=== PATIENT | male | born 1960 | race Caucasian/White ===

== ENCOUNTER 2022-05-30 11:08 | Outpatient (REF) | payer MEDICAID, SELFPAY ==
--- NOTE | ~2022-05-30 | XR_ITS ---
EXAMINATION: XR KNEES, STANDING AP BILATERAL XR KNEE, RIGHT CLINICAL INFORMATION: Knee pain COMPARISON: None TECHNIQUE: Bilateral standing AP view of the knees is performed. Additional lateral and axial patella views of the right knee are obtained. FINDINGS: Right: Normal bony mineralization. No fracture, dislocation, destructive process, or arthropathy. No erosive change or chondrocalcinosis. No effusion. Hoffa's fat pad appears normal. No lateralization or tilting patella. Left: Normal bony mineralization. No definite joint narrowing. No erosive change or definite chondrocalcinosis. XR/XR knee standing BI IMPRESSION: Unremarkable knees.
--- NOTE | ~2022-05-30 | XR_ITS ---
EXAMINATION: XR KNEES, STANDING AP BILATERAL XR KNEE, RIGHT CLINICAL INFORMATION: Knee pain COMPARISON: None TECHNIQUE: Bilateral standing AP view of the knees is performed. Additional lateral and axial patella views of the right knee are obtained. FINDINGS: Right: Normal bony mineralization. No fracture, dislocation, destructive process, or arthropathy. No erosive change or chondrocalcinosis. No effusion. Hoffa's fat pad appears normal. No lateralization or tilting patella. Left: Normal bony mineralization. No definite joint narrowing. No erosive change or definite chondrocalcinosis. XR/XR knee RT 2V IMPRESSION: Unremarkable knees.
== END 2022-05-30 11:09 | disposition home or self-care (01) ==
LOC: HO.HOSX 11:08
PROVIDERS: Visit Provider Physician Assistant
DX: M23.91 Unspecified internal derangement of right knee (principal)
CPT/HCPCS: 73560; 73565; 99202

== ENCOUNTER 2022-06-16 07:24 | Outpatient (REF) | payer MEDICAID, SELFPAY ==
--- NOTE | ~2022-06-16 | MR_ITS ---
EXAMINATION: MR KNEE WITHOUT CONTRAST, RIGHT CLINICAL INFORMATION: Right knee pain. Internal derangement. COMPARISON: Right knee radiographs dated 05/30/2022. TECHNIQUE: MRI of the knee without contrast was performed using routine sequences on a high-field scanner. FINDINGS: MENISCI: MEDIAL MENISCUS: Intact LATERAL MENISCUS: Intact LIGAMENTS: CRUCIATE: Intact COLLATERAL: Intact EXTENSOR MECHANISM: Minimal distal quadriceps tendinosis. Intact patellar tendon. Normal patellofemoral alignment. ARTICULAR CARTILAGE/BONE: PATELLOFEMORAL COMPARTMENT: Focal articular cartilage fissuring at the inferior aspect of the patellar median ridge with minimal underlying subchondral cystic change. Medial patellar facet articular cartilage signal heterogeneity. Tiny marginal osteophytes. MEDIAL COMPARTMENT: Intact articular cartilage. LATERAL COMPARTMENT: Intact articular cartilage. JOINT FLUID AND BURSAE: Trace joint effusion. MR/MR knee RT wo con IMPRESSION: 1. No acute meniscal or ligamentous injury. 2. Minimal distal quadriceps tendinosis. 3. Minimal patellofemoral arthrosis. Trace joint effusion.
== END 2022-06-16 07:25 | disposition home or self-care (01) ==
LOC: HO.MRI 07:24
PROVIDERS: PCP Family Medicine; Visit Provider Physician Assistant
DX: M23.91 Unspecified internal derangement of right knee (principal)
CPT/HCPCS: 73721

== ENCOUNTER → 2022-08-04 10:59 | Outpatient (BNVA) | payer MEDICAID, SELFPAY | PROVIDERS: Visit Provider Physician Assistant | DX: M23.91 Unspecified internal derangement of right knee (principal) | CPT/HCPCS: 20610; 99212; J1040 ==

== ENCOUNTER 2022-08-29 09:29 | Outpatient (REF) | payer MEDICAID, SELFPAY | END 2022-08-29 09:30 | disposition home or self-care (01) | LOC: HO.HOSX 09:29 | PROVIDERS: Visit Provider Physician Assistant | DX: Z13.89 Encounter for screening for other disorder (principal) ==

== ENCOUNTER 2022-09-05 11:12 | Outpatient (REF) | payer OTHER, SELFPAY ==
--- NOTE | ~2022-09-05 | XR_ITS ---
EXAMINATION: XR SHOULDER, LEFT CLINICAL INFORMATION: Pain. COMPARISON: None available. TECHNIQUE: Three views of the left shoulder. FINDINGS: There is mild acromioclavicular osteoarthritis. Glenohumeral joint is well preserved. No fracture. Alignment is anatomic. Soft tissues are normal with no abnormal calcifications. XR/XR shoulder LT min 2V IMPRESSION: No acute fractures or malalignment. Mild acromioclavicular osteoarthritis.
== END 2022-09-05 11:13 | disposition home or self-care (01) ==
LOC: HO.HOSX 11:12
PROVIDERS: Visit Provider Physician Assistant
DX: M75.102 Unspecified rotator cuff tear or rupture of left shoulder, not specified as traumatic (principal)
CPT/HCPCS: 73030; 99212

== ENCOUNTER → 2022-11-13 09:22 | Outpatient (BNVA) | payer OTHER, SELFPAY | PROVIDERS: PCP Family Medicine; Visit Provider Physician Assistant | DX: M23.91 Unspecified internal derangement of right knee (principal); M75.102 Unspecified rotator cuff tear or rupture of left shoulder, not specified as traumatic | CPT/HCPCS: 20610; J1040 ==

== ENCOUNTER 2023-02-06 08:33 | Outpatient (AMB) | payer OTHER, SELFPAY ==
[2023-02-06 08:38] VITALS: BMI 27.1
--- NOTE | 2023-02-06 08:38 | MHC.OFFVIS ---
Intake Vital Signs 02/06/23 08:38 Height 6 ft Weight 200 lb BMI 27.1 Intake Visit Reasons: OV - Right knee Euflexxa Gel Injection #1 Intake Note: Vinay is a 62 year old male who presents today for his right knee euflexxa gel injection #1. Allergies ciprofloxacin [From Cipro] Allergy (Severe, Verified 02/06/23 08:39) Swelling HPI OV - Right knee Euflexxa Gel Injection #1 HPI Details 62-year-old male who presents in the office today for a follow up of right knee pain. He presents for his 1st Euflexxa injection in a series of 3 in the right knee. He would also like a cortisone injection in the left shoulder. His last cortisone injection was on 11/13/2022 in the left shoulder. [facility] Medical History (Updated 11/13/22 @ 09:33 by Soila Christiansen) History of high blood pressure Social History Alcohol intake: never Patient Tobacco Use Status: Never used Tobacco Current occupational status: disabled Review of Systems Const All systems reviewed & are unremarkable except as noted in HPI and below Physical Exam Vital Signs: BMI result Body Mass Index 27.1 Const General: cooperative, healthy appearing and no acute distress Resp Effort & Inspection: normal respiratory effort and able to speak in complete sentences Cardio Rate: regular rate Peripheral pulses: Peripheral pulses 2+ throughout GI Palpation (GI): Soft to palpation Skin Lesions: no lesions Rashes: no rashes Extrem Other: Right knee: Normal to inspection. No ecchymosis, erythema, or joint effusion. No tenderness to palpation to the medial or lateral joint lines. Full knee extension and flexion. Negative Jennifer's. Negative anterior draw. NVI. Left shoulder: Normal to inspection. No ecchymosis, erythema, or edema. Full shoulder ROM in all planes. Negative cross-body reach. 4/5 strength with empty can. Negative drop arm. NVI. Office Procedures Joint Injection/Drain Joint Injection/Drain Primary Site: left shoulder Secondary Site: right knee (Euflexxa #1) Prep: site was prepped using aseptic technique, ethochloride spray was applied and injection warnings given Injected: 80 mg of, DepoMedrol, with 8 mL of (2% plain lido ) and in the subcromial space Approach Used: anterolateral Procedure: The patient tolerated the procedure well, but had some pain with the injection and there was some relief with the local anesthesia Coding 75721 - Large joint Procedure code (CPT) selection complete Results Reviewed Results Reviewed: 02/06/23 08:40 Hyaluronate Sodium [Euflexxa] 20 mg INTRAARTIC .[facility] ONE 02/06/23 08:48 Lidocaine HCl 2 % MPF [Xylocaine 2 % MPF] 5 ml .ROUTE .[facility] methylPREDNISolone acetate [DEPO-MedroL] 80 mg .ROUTE .[facility] Assessment & Plan Assessment & Plan (1) Internal derangement of right knee: Code(s): M23.91 - Unspecified internal derangement of right knee (2) Painful arc syndrome of left shoulder: Code(s): M75.102 - Unspecified rotator cuff tear or rupture of left shoulder, not specified as traumatic Plan Mr Cornejo is a 62-year-old male who presents in the office today for a follow up of right knee pain. He presents for his 1st Euflexxa injection in a series of 3 in the right knee. He would also like a cortisone injection in the left shoulder. His last cortisone injection was on 11/13/2022 in the left shoulder. The patient was offered a cortisone injection in the left shoulder with 80 mg of DepoMedrol. The patient was explained the risk, benefits, and alternatives to receiving this injection. After receiving consent for the injection, the patient had the procedure done while in office today. The patient tolerated the procedure well with no complications. The patient was injection with his 1st Euflexxa injection in the right knee. The patient was explained the risk, benefits, and alternatives to receiving this injection. After receiving consent for the injection, the patient had the procedure done while in office today. The patient tolerated the procedure well with no complications. Follow up will be in 1 week for his 2nd injection in the right knee, or sooner if needed. Patient Instructions: Scribed for Malorie Stevenson PA-C by Laura Ewing medical or surgical instrument maker, on 02/06/2023 at 8:43 am, EST. Coding Level of Care Code Procedure Only Diagnoses Internal derangement of right knee M23.91 Painful arc syndrome of left shoulder M75.102 CPT Codes Coding - Large joint: 77587 - Large joint ([id number])
== END 2023-02-06 09:00 | disposition home or self-care (01) ==
PROVIDERS: PCP Family Medicine; Visit Provider Physician Assistant
DX: M23.91 Unspecified internal derangement of right knee (principal); M75.102 Unspecified rotator cuff tear or rupture of left shoulder, not specified as traumatic
CPT/HCPCS: 20610

== ENCOUNTER → 2023-02-06 08:33 | Outpatient (BNVA) | payer OTHER, SELFPAY | PROVIDERS: PCP Family Medicine; Visit Provider Physician Assistant | DX: M23.91 Unspecified internal derangement of right knee (principal); M75.102 Unspecified rotator cuff tear or rupture of left shoulder, not specified as traumatic | CPT/HCPCS: 20610; J1040; J7323 ==

== ENCOUNTER 2023-02-13 08:25 | Outpatient (AMB) | payer OTHER, SELFPAY ==
--- NOTE | 2023-02-13 08:28 | A.OFFVIS_ITS ---
Intake Vital Signs 02/13/23 08:29 Height 6 ft Weight 200 lb BMI 27.1 BP 147/99 H Blood Pressure Location Lt brachial Position Sitting Intake Visit Reasons: OV - Right knee Euflexxa Gel Injection #2 Intake Note: Vinay is a 62 year old male who presents today for his right knee euflexxa gel injection #2. Allergies ciprofloxacin [From Cipro] Allergy (Severe, Verified 02/13/23 08:36) Swelling HPI OV - Right knee Euflexxa Gel Injection #2 HPI Details 62-year-old male who presents in the off ice today for a follow up of right knee pain. He presents for his 2nd Euflexxa injection in a series of 3 in the right knee. He reports the left shoulder injection has not started working yet. [facility] Medical History (Updated 11/13/22 @ 09:33 by Soila Christiansen) History of high blood pressure Social History Alcohol intake: never Patient Tobacco Use Status: Never used Tobacco Current occupational status: disabled Review of Systems Const All systems reviewed & are unremarkable except as noted in HPI and below Physical Exam Vital Signs: Last Vital Signs BP 147/99 H 02/13/23 08:29 BMI result Body Mass Index 27.1 Const General: cooperative, healthy appearing and no acute distress Resp Effort & Inspection: normal respiratory effort and able to speak in complete sentences Cardio Rate: regular rate Peripheral pulses: Peripheral pulses 2+ throughout GI Palpation (GI): Soft to palpation Skin Lesions: no lesions Rashes: no rashes Extrem Other: Right knee: Normal to inspection. No ecchymosis, erythema, or joint effusion. No tenderness to palpation to the medial or lateral joint lines. Full knee extension and flexion. Negative Jennifer's. Negative anterior draw. NVI. Office Procedures Joint Injection/Drain Joint Injection/Drain Primary Site: right knee Injected: in the joint (Euflexxa #2) Approach Used: anterolateral Procedure: The patient tolerated the procedure well, but had some pain with the injection and there was some relief with the local anesthesia Coding 97726 - Large joint Procedure code (CPT) selection complete Results Reviewed Results Reviewed: 02/13/23 08:31 Hyaluronate Sodium [Euflexxa] 20 mg INTRAARTIC .[facility] Assessment & Plan Assessment & Plan (1) Internal derangement of right knee: Code(s): M23.91 - Unspecified internal derangement of right knee Plan Mr. Cornejo is a 62-year-old male who presents in the office today for a follow up of right knee pain. He presents for his 2nd Euflexxa injection in a series of 3 in the right knee. He reports the left shoulder injection has not started working yet. The patient was injection with his 2nd Euflexxa injection in the right knee. The patient was explained the risk, benefits, and alternatives to receiving this injection. After receiving consent for the injection, the patient had the procedure done while in office today. The patient tolerated the procedure well with no complications. I educated the patient that the cortisone injection can take up to a week to feel any relief. We will re-evaluate his left shoulder at the next appointment. Follow up will be in 1 week for his 3rd Euflexxa injection in the right knee, or sooner if needed. Patient Instructions: Scribed for Malorie Stevenson PA-C by Laura Ewing medical insurance claims processor, on 02/13/2023 at 8:28 am, EST. Coding Level of Care Code Procedure Only Diagnoses Internal derangement of right knee M23.91 CPT Codes Coding - 63362 Large joint: 64107 - Large joint ([id number])
[2023-02-13 08:29] VITALS: BP 147/99; BMI 27.1
== END 2023-02-13 08:41 | disposition home or self-care (01) ==
PROVIDERS: PCP Family Medicine; Visit Provider Physician Assistant
DX: M23.91 Unspecified internal derangement of right knee (principal)
CPT/HCPCS: 20610

== ENCOUNTER → 2023-02-13 08:25 | Outpatient (BNVA) | payer OTHER, SELFPAY | PROVIDERS: PCP Family Medicine; Visit Provider Physician Assistant | DX: M23.91 Unspecified internal derangement of right knee (principal) | CPT/HCPCS: 20610; J7323 ==

== ENCOUNTER 2023-02-20 08:34 | Outpatient (AMB) | payer OTHER, SELFPAY ==
--- NOTE | 2023-02-20 08:40 | MHC.OFFVIS ---
Intake Intake Visit Reasons: OV - Right knee Euflexxa Gel Injection #3 Intake Note: Vinay is a 62 year old male who presents today for his right knee euflexxa gel injection #3. Allergies ciprofloxacin [From Cipro] Allergy (Severe, Verified 02/20/23 08:40) Swelling HPI OV - Right knee Euflexxa Gel Injection #3 HPI Details 62-year-old male who presents in the office today for a follow up of right knee pain. He presents for his 3rd Euflexxa injection in a series of 3 in the right knee. [facility] Medical History (Updated 11/13/22 @ 09:33 by Soila Christiansen) History of high blood pressure Social History Alcohol intake: never Patient Tobacco Use Status: Never used Tobacco Current occupational status: disabled Review of Systems Const All systems reviewed & are unremarkable except as noted in HPI and below Physical Exam Const General: cooperative, healthy appearing and no acute distress Resp Effort & Inspection: normal respiratory effort and able to speak in complete sentences Cardio Rate: regular rate Peripheral pulses: Peripheral pulses 2+ throughout GI Palpation (GI): Soft to palpation Skin Lesions: no lesions Rashes: no rashes Extrem Other: Right knee: Normal to inspection. No ecchymosis, erythema, or joint effusion. No tenderness to palpation to the medial or lateral joint lines. Full knee extension and flexion. Negative Jennifer's. Negative anterior draw. NVI. Office Procedures Joint Injection/Drain Joint Injection/Drain Primary Site: right knee Prep: site was prepped using aseptic technique, ethochloride spray was applied and injection warnings given Injected: in the joint (Euflexxa #3) Approach Used: anterolateral Procedure: The patient tolerated the procedure well, but had some pain with the injection and there was some relief with the local anesthesia Coding 22396 - Large joint Procedure code (CPT) selection complete Results Reviewed Results Reviewed: 02/20/23 08:30 Hyaluronate Sodium [Euflexxa] 20 mg INTRAARTIC .[facility] Assessment & Plan Assessment & Plan (1) Internal derangement of right knee: Code(s): M23.91 - Unspecified internal derangement of right knee Plan Mr. Cornejo is a 62-year-old male who presents in the office today for a follow up of right knee pain. He presents for his 3rd Euflexxa injection in a series of 3 in the right knee. The patient was injection with his 3rd Euflexxa injection in the right knee. The patient was explained the risk, benefits, and alternatives to receiving this injection. After receiving consent for the injection, the patient had the procedure done while in office today. The patient tolerated the procedure well with no complications. Follow up will be PRN, or sooner if needed. Patient Instructions: Scribed for Malorie Stevenson PA-C by Laura Ewing center medical and lab director, on 02/20/2023 at 8:37 am, EST. Coding Level of Care Code Procedure Only Diagnoses Internal derangement of right knee M23.91 CPT Codes Coding - 01866 Large joint: 06217 - Large joint ([id number])
== END 2023-02-20 08:45 | disposition home or self-care (01) ==
PROVIDERS: PCP Family Medicine; Visit Provider Physician Assistant
DX: M23.91 Unspecified internal derangement of right knee (principal)
CPT/HCPCS: 20610

== ENCOUNTER → 2023-02-20 08:34 | Outpatient (BNVA) | payer OTHER, SELFPAY | PROVIDERS: PCP Family Medicine; Visit Provider Physician Assistant | DX: M23.91 Unspecified internal derangement of right knee (principal) | CPT/HCPCS: 20610; J7323 ==

== ENCOUNTER 2023-05-25 09:26 | Outpatient (AMB) | payer OTHER, SELFPAY ==
[2023-05-25 09:34] VITALS: BMI 27.1
--- NOTE | 2023-05-25 09:34 | MHC.OFFVIS ---
Intake Vital Signs 05/25/23 09:34 Height 6 ft Weight 200 lb BMI 27.1 Intake Visit Reasons: OV- Left Shoulder pain Intake Note: Vinay is a 62 year old left hand dominant male who presents today for a evaluation for his left shoulder pain. He states that his pain is getting a little worse and would like to injection his shoulder. He states that his knee has been bothering him since his last gel injection on 02/20/23 and wanted to know if he can get an injection. Allergies ciprofloxacin [From Cipro] Allergy (Severe, Verified 05/25/23 09:34) Swelling HPI OV- Left Shoulder pain HPI Details 62-year-old left hand dominant male who presents in the office today for a follow up of left shoulder pain. I last saw the patient in the office for left shoulder pain on 09/05/2022 where he reported 6 months of intermittent pain. He was offered physical therapy but declined and due to his decreased pain at the time a cortisone injection was deferred. While in the office today the patient reports his pain is a little worse and he would like to have a cortisone injection in the left shoulder. The patient also reports pain in the right knee. He states it has been a while since he had his last gel injection, which was on 02/20/2023. He would like a cortisone injection in the right knee today as well. [facility] Medical History (Updated 11/13/22 @ 09:33 by Soila Christiansen) History of high blood pressure Social History Alcohol intake: never Patient Tobacco Use Status: Never used Tobacco Current occupational status: disabled Review of Systems Const All systems reviewed & are unremarkable except as noted in HPI and below Physical Exam Vital Signs: BMI result Body Mass Index 27.1 Const General: cooperative, healthy appearing and no acute distress Resp Effort & Inspection: normal respiratory effort and able to speak in complete sentences Cardio Rate: regular rate Peripheral pulses: Peripheral pulses 2+ throughout GI Palpation (GI): Soft to palpation Skin Lesions: no lesions Rashes: no rashes Extrem Other: Left shoulder: Normal to inspection. No ecchymosis, erythema, or edema. Full shoulder ROM in all planes. Negative cross-body reach. 4/5 strength with empty can. Negative drop arm. NVI. Right knee: Normal to inspection. No ecchymosis, erythema, or joint effusion. No tenderness to palpation to the medial or lateral joint lines. Full knee extension and flexion. Negative Jennifer's. Negative anterior draw. NVI. Office Procedures Joint Injection/Drain Joint Injection/Drain Primary Site: left shoulder Injected: 80 mg of, DepoMedrol, with 8 mL of (2% plain lido ) and in the subcromial space Approach Used: posterolateral Procedure: The patient tolerated the procedure well and there was some relief with the local anesthesia Coding 03776 - Large joint Procedure code (CPT) selection complete Joint Injection/Drain Joint Injection/Drain Primary Site: right knee Prep: site was prepped using aseptic technique, ethochloride spray was applied and injection warnings given Injected: 80 mg of, with 8 mL of (2% plain lido) and in the joint Approach Used: anterolateral Procedure: The patient tolerated the procedure well, but had some pain with the injection and there was some relief with the local anesthesia Coding 97541 - Large joint Procedure code (CPT) selection complete Assessment & Plan Assessment & Plan (1) Painful arc syndrome of left shoulder: Code(s): M75.102 - Unspecified rotator cuff tear or rupture of left shoulder, not specified as traumatic (2) Internal derangement of right knee: Code(s): M23.91 - Unspecified internal derangement of right knee Plan Mr. Cornejo is a 62-year-old left hand dominant male who presents in the office today for a follow up of left shoulder pain. I last saw the patient in the office for left shoulder pain on 09/05/2022 where he reported 6 months of intermittent pain. He was offered physical therapy but declined and due to his decreased pain at the time a cortisone injection was deferred. While in the office today the patient reports his pain is a little worse and he would like to have a cortisone injection in the left shoulder. The patient also reports pain in the right knee. He states it has been a while since he had his last gel injection, which was on 02/20/2023. He would like a cortisone injection in the right knee today as well. The patient was offered a cortisone injection in the left shoulder and right knee with 80 mg of DepoMedrol. The patient was explained the risk, benefits, and alternatives to receiving this injection. After receiving consent for the injection, the patient had the procedure done while in office today. The patient tolerated the procedure well with no complications. Follow up will be PRN, or sooner if needed. Patient Instructions: Scribed for Malorie Stevenson PA-C by Laura Ewing medical laboratory specialist, on 05/25/2023 at 9:29 am, EST. Coding Level of Care Code Est Pt Level 4 (62495) Diagnoses Painful arc syndrome of left shoulder M75.102 Internal derangement of right knee M23.91 CPT Codes Coding - 04008 Large joint: 97952 - Large joint ([id number]) Coding - 47055 Large joint: 08692 - Large joint ([id number])
== END 2023-05-25 09:52 | disposition home or self-care (01) ==
PROVIDERS: PCP Family Medicine; Referring Provider Family Medicine; Visit Provider Physician Assistant
DX: M75.102 Unspecified rotator cuff tear or rupture of left shoulder, not specified as traumatic (principal); M23.91 Unspecified internal derangement of right knee
CPT/HCPCS: 20610; 99214

== ENCOUNTER → 2023-05-25 09:26 | Outpatient (BNVA) | payer OTHER, MEDICAID, SELFPAY | PROVIDERS: PCP Family Medicine; Visit Provider Physician Assistant | DX: M75.102 Unspecified rotator cuff tear or rupture of left shoulder, not specified as traumatic (principal); M23.91 Unspecified internal derangement of right knee | CPT/HCPCS: 20610; J1040 ==

== ENCOUNTER 2023-10-09 09:25 | Outpatient (AMB) | payer MEDICARE, MEDICAID, SELFPAY ==
--- NOTE | 2023-10-09 09:28 | A.OFFVIS_ITS ---
Intake Visit Reasons: right knee injection, last inj 05/25/23 Intake Note: Vinay is a 62 year old left hand dominant male who presents today for a evaluation for his right knee pain/left shoulder, last injection 05/25/2023. He states that his last injection gave him about 4 months of relief and would like to repeat. Allergies ciprofloxacin [From Cipro] Allergy (Severe, Verified 10/09/23 09:39) Swelling HPI HPI right knee injection, last inj 05/25/23: Details: 63-year-old left hand dominant male who presents in the office today for a follow up of right knee and left shoulder pain. I last saw the patient in the office on 05/25/2023 when he received a cortisone injection in the right knee and left shoulder. While in the office today the patient reports the last injections gave him about 4 months of relief. He is interested in repeating this today. [facility] Medical History (Updated 11/13/22 @ 09:33 by Soila Christiansen) History of high blood pressure Social History Alcohol intake: never Patient Tobacco Use Status: Never used Tobacco Current occupational status: disabled Review of Systems Const All systems reviewed & are unremarkable except as noted in HPI and below Physical Exam Const General: cooperative, healthy appearing and no acute distress Resp Effort & Inspection: normal respiratory effort and able to speak in complete sentences Cardio Rate: regular rate Peripheral pulses: Peripheral pulses 2+ throughout GI Palpation (GI): Soft to palpation Skin Lesions: no lesions Rashes: no rashes Extrem Other: Left shoulder: Normal to inspection. No ecchymosis, erythema, or edema. Full shoulder ROM in all planes. Negative cross-body reach. 4/5 strength with empty can. Negative drop arm. NVI. Right knee: Normal to inspection. No ecchymosis, erythema, or joint effusion. No tenderness to palpation to the medial or lateral joint lines. Full knee exte nsion and flexion. Negative Jennifer's. Negative anterior draw. NVI. Office Procedures Joint Injection/Drain Joint Injection/Drain Primary Site: right knee Secondary Site: left shoulder Prep: site was prepped using aseptic technique, ethochloride spray was applied and injection warnings given Injected: 80 mg of, DepoMedrol, with 8 mL of (2% plain lido ), in the joint and in the subcromial space Procedure: The patient tolerated the procedure well, but had some pain with the injection and there was some relief with the local anesthesia Coding 72349 - Large joint Procedure code (CPT) selection complete Assessment & Plan Assessment & Plan (1) Painful arc syndrome of left shoulder: Code(s): M75.102 - Unspecified rotator cuff tear or rupture of left shoulder, not specified as traumatic Category: Medical (2) Internal derangement of right knee: Code(s): M23.91 - Unspecified internal derangement of right knee Category: Medical Plan Mr. Cornejo is a 63-year-old left hand dominant male who presents in the office today for a follow up of right knee and left shoulder pain. I last saw the patient in the office on 05/25/2023 when he received a cortisone injection in the right knee and left shoulder. While in the office today the patient reports the last injections gave him about 4 months of relief. He is interested in repeating this today. The patient was offered a cortisone injection in the left shoulder and right knee with 80 mg of DepoMedrol. The patient was explained the risk, benefits, and alternatives to receiving this injection. After receiving consent for the injection, the patient had the procedure done while in the office today. The patient tolerated the procedure well with no complications. Follow up will be PRN, or sooner if needed. Patient Instructions: Scribed by Laura Ewing medical affairs manager, for Malorie Stevenson PA-C on 10/09/2023 at 9:27 am, EST. Coding Level of Care Code Est Pt Level 3 (24698) Diagnoses Painful arc syndrome of left shoulder M75.102 Internal derangement of right knee M23.91 CPT Codes Coding - Large joint: 04714 - Large joint ([id number])
== END 2023-10-09 09:52 | disposition home or self-care (01) ==
PROVIDERS: PCP Family Medicine; Visit Provider Physician Assistant
DX: M75.102 Unspecified rotator cuff tear or rupture of left shoulder, not specified as traumatic (principal); M23.91 Unspecified internal derangement of right knee
CPT/HCPCS: 20610; 99213

== ENCOUNTER → 2023-10-09 09:25 | Outpatient (BNVA) | payer OTHER, SELFPAY | PROVIDERS: PCP Family Medicine; Visit Provider Physician Assistant | DX: M75.102 Unspecified rotator cuff tear or rupture of left shoulder, not specified as traumatic (principal); M23.91 Unspecified internal derangement of right knee | CPT/HCPCS: 20610; J1010 ==

== ENCOUNTER 2024-01-17 09:04 | Outpatient (AMB) | payer OTHER, MEDICAID, SELFPAY ==
--- NOTE | 2024-01-17 09:09 | A.OFFVIS_ITS ---
Intake Visit Reasons: OV-right knee injection, last inj 10/09/23 Intake Note: Vinay is a 62 year old left hand dominant male who presents today for a follow up of his right knee pain/left shoulder pain, last injection 10/09/23. He states his last injections lasted him 3 months and would like to repeat. Allergies ciprofloxacin [From Cipro] Allergy (Severe, Verified 01/17/24 09:17) Swelling HPI HPI OV-right knee injection, last inj 10/09/23: Details: 63-year-old left hand dominant male who presents in the office today for a follow-up of right knee and left shoulder pain. I last saw the patient in the office on 10/09/23 when he received a cortisone injection in the right knee and left shoulder. ? ? While in the office today, the patient reports his last cortisone injection gave him about three months of relief. He is interested in repeating the injections today. ? [facility] Medical History (Updated 11/13/22 @ 09:33 by Soila Christiansen) History of high blood pressure Social History Alcohol intake: never Patient Tobacco Use Status: Never used Tobacco Current occupational status: disabled Review of Systems Const All systems reviewed & are unremarkable except as noted in HPI and below Physical Exam Const General: cooperative, healthy appearing and no acute distress Resp Effort & Inspection: normal respiratory effort and able to speak in complete sentences Cardio Rate: regular rate Peripheral pulses: Peripheral pulses 2+ throughout GI Palpation (GI): Soft to palpation Skin Lesions: no lesions Rashes: no rashes Extrem Other: Left shoulder: Normal to inspection. No ecchymosis, erythema, or edema. Full shoulder ROM in all planes. Negative cross-body reach. 4/5 strength with empty can. Negative drop arm. NVI. Right knee: Normal to inspection. No ecchymosis, erythema, or joint effusion. No tenderness to palpation to the medial or lateral joint lines. Full knee extension and flexion. Negative Jennifer's. Negative anterior draw. NVI. Office Procedures Joint Injection/Aspiration Joint Injection/Aspiration Primary Site: right knee Secondary Site: left shoulder Injected: 80 mg of, DepoMedrol, with 8 mL of (2% plain lido ), in the joint and in the subcromial space Approach Used: anterolateral Procedure: The patient tolerated the procedure well, but had some pain with the injection and there was some relief with the local anesthesia Coding 93249 - Large joint Procedure code (CPT) selection complete Assessment & Plan Assessment & Plan (1) Painful arc syndrome of left shoulder: Code(s): M75.102 - Unspecified rotator cuff tear or rupture of left shoulder, not specified as traumatic Category: Medical (2) Internal derangement of right knee: Code(s): M23.91 - Unspecified internal derangement of right knee Category: Medical Plan Mr. Cornejo is a 63-year-old left hand dominant male who presents in the office today for a follow-up of right knee and left shoulder pain. I last saw the patient in the office on 10/09/23 when he received a cortisone injection in the right knee and left shoulder. ? ? While in the office today, the patient reports his last cortisone injection gave him about three months of relief. He is interested in repeating the injections today.? ? The patient was offered a cortisone injection in the right knee and left shoulder with 80 mg of Depo-Medrol. The patient was explained the risks, benefits, and alternatives to receiving this injection. After receiving consent for the injection, the patient had the procedure done while in the office today. The patient tolerated the procedure well with no complications.? ? Follow-up will be PRN, or sooner if needed. ? Patient Instructions: Scribed by Laura Ewing certified medical technician, for Malorie Stevenson PA-C on 01/17/2024 at 9:09 am, EST.? Coding Level of Care Code Est Pt Level 3 (37871) Diagnoses Painful arc syndrome of left shoulder M75.102 Internal derangement of right knee M23.91 CPT Codes Coding - Large joint: 99460 - Large joint ([id number])
== END 2024-01-17 09:32 | disposition home or self-care (01) ==
PROVIDERS: PCP Family Medicine; Visit Provider Physician Assistant
DX: M75.102 Unspecified rotator cuff tear or rupture of left shoulder, not specified as traumatic (principal); M23.91 Unspecified internal derangement of right knee
CPT/HCPCS: 20610; 99213

== ENCOUNTER → 2024-01-17 09:04 | Outpatient (BNVA) | payer MEDICARE, OTHER, SELFPAY | PROVIDERS: PCP Family Medicine; Visit Provider Physician Assistant | DX: M23.91 Unspecified internal derangement of right knee (principal); M75.102 Unspecified rotator cuff tear or rupture of left shoulder, not specified as traumatic | CPT/HCPCS: 20610; J1010 ==

== ENCOUNTER 2024-04-15 08:25 | Outpatient (AMB) | payer OTHER, MEDICAID, SELFPAY ==
--- NOTE | 2024-04-15 08:27 | A.OFFVIS_ITS ---
Intake Visit Reasons: OV-right knee injection, last inj 01/17/24 Intake Note: Vinay is a 62 year male who presents today for a repeat injection for his right knee OA, right knee /left shoulder injection 01/17/24. He states his last injections gave him 3 months of relief and would like to repeat. Allergies ciprofloxacin [From Cipro] Allergy (Severe, Verified 04/15/24 08:46) Swelling HPI HPI OV-right knee injection, last inj 01/17/24: Details: 63-year-old left hand dominant male who presents in the office today for a follow-up of right knee pain. I last saw the patient in the office on 01/17/24 when he was given a cortisone injection in the right knee as well as in the left shoulder. While in the office today, the patient reports his last cortisone injection in the right knee and left shoulder provided him with 3 months of relief. He would like to have a repeat injection in both the right knee and left shoulder today. [facility] Medical History (Updated 11/13/22 @ 09:33 by Soila Christiansen) History of high blood pressure Social History Alcohol intake: never Patient Tobacco Use Status: Never used Tobacco Current occupational status: disabled Review of Systems Const All systems reviewed & are unremarkable except as noted in HPI and below Physical Exam Const General: cooperative, healthy appearing and no acute distress Resp Effort & Inspection: normal respiratory effort and able to speak in complete sentences Cardio Rate: regular rate Peripheral pulses: Peripheral pulses 2+ throughout GI Palpation (GI): Soft to palpation Skin Lesions: no lesions Rashes: no rashes Extrem Other: Left shoulder: Normal to inspection. No ecchymosis, erythema, or edema. Full shoulder ROM in all planes. Negative cross-body reach. 4/5 strength with empty can. Negative drop arm. NVI. Right knee: Normal to inspection. No ecchymosis, erythema, or joint effusion. No tenderness to palpation to the medial or lateral joint lines. Full knee extension and flexion. Negative Jennifer's. Negative anterior draw. NVI. Office Procedures AMB Joint Injection/Aspiration Joint Injection/Aspiration Primary Site: left shoulder Secondary Site: right knee Prep: site was prepped using aseptic technique, ethochloride spray was applied and injection warnings given Injected: 80 mg of, DepoMedrol, with 8 mL of (2% plain lido ), in the joint (Anterolateral approach ) and in the subcromial space (posterolateral approach ) Approach Used: other Procedure: The patient tolerated the procedure well, but had some pain with the injection and there was some relief with the local anesthesia Coding 09697 - Large joint Procedure code (CPT) selection complete Assessment & Plan Assessment & Plan (1) Painful arc syndrome of left shoulder: Code(s): M75.102 - Unspecified rotator cuff tear or rupture of left shoulder, not specified as traumatic Category: Medical (2) Internal derangement of right knee: Code(s): M23.91 - Unspecified internal derangement of right knee Category: Medical Plan Mr. Cornejo is a 63-year-old left hand dominant male who presents in the office today for a follow-up of right knee pain. I last saw the patient in the office on 01/17/24 when he was given a cortisone injection in the right knee as well as in the left shoulder. While in the office today, the patient reports his last cortisone injection in the right knee and left shoulder provided him with 3 months of relief. He would like to have a repeat injection in both the right knee and left shoulder today. The patient was offered a cortisone injection in the right knee and left shoulde r with 80 mg of Depo-Medrol. The patient was explained the risks, benefits, and alternatives to receiving this injection. After receiving consent for the injection, the patient had the procedure done while in the office today. The patient tolerated the procedure well with no complications. Follow-up will be PRN, or sooner if needed. Patient Instructions: Scribed by Arielle Hutton medical voucher clerk, for Malorie Stevenson PA-C on 04/15/24 at 8:43 am EST. Coding Level of Care Code Est Pt Level 3 (85278) Diagnoses Painful arc syndrome of left shoulder M75.102 Internal derangement of right knee M23.91 CPT Codes Coding - Large joint: 02681 - Large joint ([id number])
== END 2024-04-15 08:46 | disposition home or self-care (01) ==
PROVIDERS: PCP Family Medicine; Visit Provider Physician Assistant
DX: M75.102 Unspecified rotator cuff tear or rupture of left shoulder, not specified as traumatic (principal); M23.91 Unspecified internal derangement of right knee
CPT/HCPCS: 20610; 99213

== ENCOUNTER → 2024-04-15 08:25 | Outpatient (BNVA) | payer OTHER, MEDICAID, SELFPAY | PROVIDERS: PCP Family Medicine; Visit Provider Physician Assistant | DX: M75.102 Unspecified rotator cuff tear or rupture of left shoulder, not specified as traumatic (principal); M23.91 Unspecified internal derangement of right knee | CPT/HCPCS: 20610; J1010; J2003 ==

== ENCOUNTER 2024-08-22 13:22 | Outpatient (AMB) | payer OTHER, MEDICAID, SELFPAY ==
--- NOTE | 2024-08-22 13:37 | A.OFFVIS_ITS ---
Intake Visit Reasons: inj-right knee inj, last inj 04/15/24 Intake Note: Vinay is a 62 year male who presents today for a repeat injection for his right knee OA, right knee /left shoulder injection 04/15/24. Patient rpeorts his last injections lasted him about 3 months and would like to repeat. Allergies ciprofloxacin [From Cipro] Allergy (Severe, Verified 08/22/24 13:50) Swelling HPI HPI inj-right knee inj, last inj 04/15/24: Details: Patient is a 64-year-old male who presents the office today for routine follow- up. He is looking to repeat right knee and left shoulder cortisone injections. He reports that these give him great relief. His last injection was on 04/15/2024. [facility] Medical History (Updated 11/13/22 @ 09:33 by Soila Christiansen) History of high blood pressure Social History Alcohol intake: never Patient Tobacco Use Status: Never used Tobacco Current occupational status: disabled Review of Systems Const All systems reviewed & are unremarkable except as noted in HPI and below Physical Exam Const General: cooperative, healthy appearing and no acute distress Resp Effort & Inspection: normal respiratory effort and able to speak in complete sentences Cardio Rate: regular rate Peripheral pulses: Peripheral pulses 2+ throughout GI Palpation (GI): Soft to palpation Skin Lesions: no lesions Rashes: no rashes Extrem Other: Left shoulder: Normal to inspection. No ecchymosis, erythema, or edema. Full shoulder ROM in all planes. Negative cross-body reach. 4/5 strength with empty can. Negative drop arm. NVI. Right knee: Normal to inspection. No ecchymosis, erythema, or joint effusion. No tenderness to palpation to the medial or lateral joint lines. Full knee extension and flexion. Negative Jennifer's. Negative anterior draw. NVI. Office Procedures AMB Joint Injection/Aspiration Joint Injection/Aspiration Primary Site: right knee Secondary Site: left shoulder Injected: 80 mg of, DepoMedrol, with 8 mL of (2% plain lido), in the joint and in the subcromial space Approach Used: other (anterolateral for right knee, posterolateral left shoulder ) Procedure: The patient tolerated the procedure well, but had some pain with the injection and there was some relief with the local anesthesia Coding 13304 - Large joint (right knee and left shoulder ) Procedure code (CPT) selection complete Assessment & Plan Assessment & Plan (1) Internal derangement of right knee: Code(s): M23.91 - Unspecified internal derangement of right knee Category: Medical (2) Painful arc syndrome of left shoulder: Code(s): M75.102 - Unspecified rotator cuff tear or rupture of left shoulder, not specified as traumatic Category: Medical Plan The patient was offered a cortisone injection in the right knee and left shoulder with 80 mg of DepoMedrol. The patient was explained the risks, benefits, and alternatives to receiving this injection. After receiving consent for the injection, the patient had the procedure done while in the office today. The patient tolerated the procedure well with no complications. Follow-up will be p.r.n., or sooner if needed Coding Level of Care Code Est Pt Level 3 (37416) Diagnoses Internal derangement of right knee M23.91 Painful arc syndrome of left shoulder M75.102 CPT Codes Coding - 79160 Large joint: 78052 - Large joint ([id number])
--- OUTSIDE RECORDS SUMMARY | 2024-08-22 15:12 | XMS_ITS | Encounter Summary ---
Author Organization [facility] Address [address] [facility] [address] [place] [address] Phone Care Team Providers Care Video Player Mechanic Name Role Phone Zev Sanchez MD, Perico Primary Care Provider +1- [phone] Encounter Details Date Type Department Care Team (Late Contact Info) Description 11/09/2021 Telephone [facility] [address] [facility] [address] [place] [address] Adama Holcomb, DO [address] [place] [address] Social History Tobacco Use Types Packs/Day Years Used Date Smoking Tobacco: Never Smokeless Tobacco: Never Alcohol Use Standard Drinks/Week Comments Never 0 (1 standard drink = 0.6 oz pur e alcohol) Sex and Gender Information Value Date Recorded Sex Assigned at Not on file Legal Sex Male 12:56 PM EDT Gender Identity Not on file Sexual Orientation Not on file documented as of this encounter Miscellaneous Notes * Telephone Encounter - Deepa Garvey - 11/09/2021 2:33 PM EDT Pt called back reg this. He would like to know if he should start taking flomax again for the pain.He thinks it might be a kidney stone. Please advise Thank you documented in this encounter Plan of Treatment Upcoming Encounters Date Type Department Care Team (Late st Contact Info) Description 10/14/2024 8:20 AM EDT Office Visit [facility] [address] [facility] [address] [place] [address] Dav Xavier MD [address] [facility] [address] [place] [address] documented as of this encounter Visit Diagnoses Not on filedocumented in this encounter Care Teams Video Player Mechanic Relationship Specialty Start Date End Date Perico Brothers MD [address] [place] [address], [address] [place] [address] PCP - General Family Medicine 02/21/21 documented as of this encounter
--- OUTSIDE RECORDS SUMMARY | 2024-08-22 15:12 | XMS_ITS | Encounter Summary ---
Author Organization [facility] Address [address] [facility] [address] [place] [address] Phone Care Team Providers Care Press Operator Name Role Phone Zev Sanchez MD, Perico Primary Care Provider +1- [phone] Reason for Visit * Reason Comments Med Refill Encounter Details Date Type Department Care Team (Late Contact Info) Description 09/06/2021 Refill [facility] [address] [facility] [address] [place] [address] Adama Holcomb, DO [address] [place] [address] Social History Tobacco Use Types Packs/Day Years Used Date Smoking Tobacco: Never Smokeless Tobacco: Never Alcohol Use Standard Drinks/Week Comments Never 0 (1 standard drink = 0.6 oz pur e alcohol) Sex and Gender Information Value Date Recorded Sex Assigned at Not on file Legal Sex Male 12:56 PM EDT Gender Identity Not on file Sexual Orientation Not on file COVID-19 Exposure Response Date Recorded In the last month, have you been in contact with someone who was confirmed or suspected to have Coronavirus / COVID-19? Unable to assess 09/06/2021 1:09 PM EDT documented as of this encounter Plan of Treatment Upcoming Encounters Date Type Department Care Team (Late st Contact Info) Description 10/14/2024 8:20 AM EDT Office Visit [facility] [address] [address] Dav Xavier MD [address] [facility] [address] [place] [address] documented as of this encounter Visit Diagnoses Not on filedocumented in this encounter Care Teams Press Operator Relationship Specialty Start Date End Date Perico Brothers MD [address] [place] [address], [address] [place] [id number] PCP - General Family Medicine 02/21/21 documented as of this encounter
--- OUTSIDE RECORDS SUMMARY | 2024-08-22 15:13 | XMS_ITS | Clinical Summary ---
Author Organization [facility] Address [address] [place] [phone] Phone Care Team Providers Care Medical Safety Director Name Role Phone Zev Sanchez MD, Timothy Primary Care Provider +1- [phone] Allergies Active Allergy Reactions Criticality Noted Date Comments Ciprofloxacin Shortness of breath High 04/23/2018 Sertraline 06/23/2019 Paradoxical anxiety Medications cimetidine (TAGAMET) 400 MG tablet Take 1 tablet by mouth every night 10/21/2019 Active clonazePAM (KlonoPIN) 1 MG tablet Take 1 tablet by mouth 2 (two) times a day if needed 02/08/2021 Active pantoprazole (PROTONIX) 20 MG EC tablet Take 20 mg by mouth in the morning. 08/03/2019 Active traZODone (DESYREL) 50 MG tablet Take 50 mg by mouth every night 2-3 at night 08/13/2020 Active Multiple Vitamins-Minera ls (MULTIVITAMIN ADULT EXTRA C PO) Take by mouth 09/01/2020 Active venlafaxine XR (EFFEXOR-XR) 150 MG 24 hr capsule Take 1 tablet by mouth 1 (one) time each day 150 in am 75 in pm 06/27/2022 Active Baclofen 5 MG tablet Take 5 mg by mouth 2 (two) times a day 01/27/2022 Active amLODIPine (NORVASC) 5 MG tablet Take 5 mg by mouth in the morning. 11/23/2022 Active busPIRone (BUSPAR) 15 MG tablet Take 15 mg by mouth in the morning and 15 mg in the evening. 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 Centrilobular emphysema 04/28/2019 Nephrolithiasis 06/04/2017 Gastroesophageal reflux disease 05/28/2017 Generalized anxiety disorder 05/28/2017 Multiple nodules of lung 05/28/2017 Resolved Problems Problem Noted Date Diagnosed Date Resolved Date Gross hematuria 06/14/2020 07/16/2022 Encounters Date Type Department Care Team Description 07/21/2024 Refill [facility] [address] [place] [address] Dav Xavier MD from Last 3 Months Immunizations Name Administration Dates Next Due Influenza (IM) Preservative Free 01/25/2017 Influenza Split Preservative Free ID 03/06/2014 Influenza, MDCK, PF, Quadrivalent 02/04/2019 Influenza, Quadrivalent, Preservative Free 03/14 Influenza, Unspecified 02/22/2018,01/18/2016, Pfizer SARS-COV-2 09/26/2020,09/05/2020 Pneumococcal Conjugate 13-Valent 04/28/2019 Pneumococcal Polysaccharide 02/18/2016 Shingrix 03/14/2020,01/10/2020 Tdap 04/23/2018,01/08/2006 Family History Medical History Relation Comments Diabetes Father Relation Status Comments Father Social History Tobacco Use Types Packs/Day Years Used Date Smoking Tobacco: Never Smokeless Tobacco: Never Tobacco Cessation:Counseling Given: Not Answered Alcohol Use Standard Drinks/Week Comments Never 0 (1 standard drink = 0.6 oz pur e alcohol) Sex and Gender Information Value Date Recorded Sex Assigned at Not on file Legal Sex Male 12:56 PM EDT Gender Identity Not on file Sexual Orientation Not on file Last Filed Vital Signs Vital Sign Reading Time Taken Comments Blood Pressure 116/80 04/14/2024 9:46 AM EST Pulse 102 04/14/2024 9:46 AM EST Temperature - - Respiratory Rate - - Oxygen Saturation 95% 04/14/2024 9:46 AM EST Inhaled Oxygen Concentration - - Weight 103 kg (226 lb 12.8 oz) 04/14/2024 9:46 A M EST Height 180.3 cm (5' 11 ) 04/14/2024 9:46 AM EST Body Mass Index 31.63 04/14/2024 9:46 AM EST Plan of Treatment Upcoming Encounters Date Type Department Care Team (Late st Contact Info) Description 10/14/2024 8:20 AM EDT Office Visit [facility] [address] [phone] Dav Xavier MD [address] [phone] Health Maintenance Due Date Last Done Comments Colorectal Cancer Screening: Annual FOBT 2011 Colorectal Cancer Screening: Colonoscopy 2011 Colorectal Cancer Screening: Sigmoidoscopy 2011 Pneumococcal Vaccine: Pediatrics (0 to 5 Years) and At-Risk Patients (6 to 64 Years) (4 of 4 - PPSV23 or PCV20) 2027 05/10/2021, 04/28/2019, 02/18/2016 Influenza Vaccine Completed 02/05/2024, , 03/06/2022, Additional history exists Hepatitis B Vaccine Aged Out No longe r eligible based on patient's age to complete this topic Insurance [place]ICAID [place] [employer] [employer] Care Teams Medical Safety Director Relationship Specialty Start Date End Date Peirco Brothers MD [address] [place] [address], [address] [place] [address] PCP - General Family Medicine 02/21/21
--- OUTSIDE RECORDS SUMMARY | 2024-08-22 15:13 | XMS_ITS | Encounter Summary ---
Author Organization [facility] Address [address] [place] [address] Care Team Providers Care Bellstand Attendant Name Role Phone Perico Brothers MD Primary Care Provider Encounter Details Date Type Department Care Team (Late st Contact Info) Description 06/09/2024 Lab Requisition [facility] Lab [address] [facility] [place] [address] Dave Sebastian MD [address] [facility] [address] [place] [address] Malignant neoplasm of unspecified renal pelvis (CMS/HCC) Social History Tobacco Use Types Packs/Day Years Used Date Smoking Tobacco: Never Assessed Sex and Gender Information Value Date Recorded Sex Assigned at Not on file Legal Sex Male 2:09 PM EST Gender Identity Not on file Sexual Orientation Not on file documented as of this encounter Plan of Treatment Not on file documented as of this encounter Procedures Procedure Name Priority Date/Time Associated Diagnosis Comments AP OUTSIDE CONSULT Routine 06/02/2024 12 :00 AM EST Malignant neoplasm of unspecified renal pelvis (CMS/HCC) documented in this encounter Results * Anatomic pathology outside consult (06/02/2024 12:00 AM EST) Final Diagnosis A. Urine, Voided, ([id number]): ATYPICAL UROTHELIAL CELLS. Results of [employer] fluorescence in situ hybridization (FISH) testing: CEP3: Normal CEP7: Normal CEP17: Normal LSI 9p21: Normal Interpretation: Normal profile Controls stained appropriately. Note: The results are intended as a screening device and should be interpreted in association with other clinical and pathological findings. 06/19/2024 4:28 PM EST [facility] Clinical Information C65.9 Malignant neoplasm of unspecified renal pelvis Urine Cytology/FISH (now) 06/19/2024 4:28 PM [facility] Gross Description A. Urine, Voided, ([id number]): Received one ThinPrep slide for cytology screen and one ThinPrep slide for [employer] FISH 06/19/2024 4:28 PM [facility] Disclaimer Unless otherwise specified, all tissue is 10% NB formalin fixed and paraffin embedded. Technical pathology services provided by [facility] [address] [facility] [address] [place] [address] (CLIA #[id number]/Noni Jewell MD, Customer Management Specialist) 06/19/2024 4:28 PM [facility] Tissue Urine specimen from urethra / Unknown 06/02/2024 06/09/2024 11:59 AM EST us Dave Sebastian MD LAB PATHOLOGY ORDERABLES Final Result [facility] [address] [place] [address], documented in this encounter Visit Diagnoses Diagnosis Malignant neoplasm of unspecified renal pelvis (CMS/HCC) documented in this encounter Care Teams Bellstand Attendant Relationship Specialty Start Date End Date Perico Brothers MD [address] [address] PCP - General Family Medicine 08/30/17 documented as of this encounter
--- OUTSIDE RECORDS SUMMARY | 2024-08-22 15:13 | XMS_ITS | Clinical Summary ---
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) from Last 3 Months Social History Tobacco Use Types Packs/Day Years Used Date Smoking Tobacco: Never Assessed Sex and Gender Information Value Date Recorded Sex Assigned at Not on file Legal Sex Male 2:09 PM EST Gender Identity Not on file Sexual Orientation Not on file Plan of Treatment Health Maintenance Due Date Last Done Comments COVID-19 Vaccine (#1) 1967 DTaP,Tdap,and Td Vaccines (1 - Tdap) 1981 Pneumococcal Vaccine: 50+ Ye ars (1 of 2 - PCV) 1981 Pneumococcal Vaccine: Pediat rics (0 to 5 Years) and At-Risk Patients (6 to 64 Years) (1 of 2 - PCV) 1981 Zoster Vaccines (1 of 2) 1981 Influenza Vaccine (#1) 2024 Cholesterol Screening (Lipid Panel) 06/09/2024 Colorectal Cancer Screening: Colonoscopy 06/09/2024 Depression Screening 06/09/2024 HIV Screening 06/09/2024 Hepatitis C Screening 06/09/2024 Social Influencers of Health Screening 06/09/2024 RSV Immunization Adult Patie nts (1 - 1-dose 75+ series) 2037 HIB Vaccines Aged Out No longer eligi ble based on patient's age to complete this topic HPV Vaccines Aged Out No longer eligi ble based on patient's age to complete this topic Hepatitis A Vaccines Aged Out No long er eligible based on patient's age to complete this topic Hepatitis B Vaccines Aged Out No long er eligible based on patient's age to complete this topic IPV Vaccines Aged Out No longer eligi ble based on patient's age to complete this topic MMR Vaccines Aged Out No longer eligi ble based on patient's age to complete this topic Meningococcal ACWY Vaccine Aged Out N o longer eligible based on patient's age to complete this topic Meningococcal B Vacine Aged Out No lo nger eligible based on patient's age to complete this topic RSV Immunization Patients Un reji 20 months Aged Out No longer eligible b ased on patient's age to complete this topic Varicella Vaccines Aged Out No longer eligible based on patient's age to complete this topic Procedures Procedure Name Priority Date/Time Associated Diagnosis Comments AP OUTSIDE CONSULT Routine 06/02/2024 12 :00 AM EST 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 Urine, Voided, ([id number]): ATYPICAL UROTHELIAL CELLS. Results of UroVysion fluorescence in situ hybridization (FISH) testing: CEP3: Normal CEP7: Normal CEP17: Normal LSI 9p21: Normal Interpretation: Normal profile Controls stained appropriately. Note: The results are intended as a screening device and should be interpreted in association with other clinical and pathological findings. 06/19/2024 4:28 PM EST [facility] Clinical Information C65.9 Malignant neoplasm of unspecified renal pelvis Urine Cytology/FISH (now) 06/19/2024 4:28 PM EST [facility] Gross Description A. Urine, Voided, ([id number]): Received one ThinPrep slide for cytology screen and one ThinPrep slide for UroVysion FISH 06/19/2024 4:28 PM [facility] Disclaimer Unless otherwise specified, all tissue is 10% NB formalin fixed and paraffin embedded. Technical pathology services provided by [facility] at [address], [place] [address] (CLIA #[id number]/Noni Jewell MD, Fruit Loader) 06/19/2024 4:28 PM EST [facility] ([facility]) [facility] Tissue Urine specimen from urethra / Unknown 06/02/2024 06/09/2024 11:59 AM EST us Dave Sebastian MD LAB PATHOLOGY ORDERABLES Final Result [facility] ([facility]) [facility] [address] [place] [address], from Last 3 Months Insurance [facility] Care Teams Compensation And Benefits Analyst Relationship Specialty Start Date End Date Perico Brothers MD [address] [address] PCP - General Family Medicine 08/30/17
== END 2024-08-22 13:50 | disposition home or self-care (01) ==
LOC: HO.HOS 13:22
PROVIDERS: PCP Family Medicine; Visit Provider Physician Assistant
DX: M23.91 Unspecified internal derangement of right knee (principal); M75.102 Unspecified rotator cuff tear or rupture of left shoulder, not specified as traumatic
CPT/HCPCS: 20610; 99213

== ENCOUNTER → 2024-08-22 13:22 | Outpatient (BNVA) | payer OTHER, MEDICAID, SELFPAY | PROVIDERS: PCP Family Medicine; Visit Provider Physician Assistant | DX: M23.91 Unspecified internal derangement of right knee (principal); M75.102 Unspecified rotator cuff tear or rupture of left shoulder, not specified as traumatic | CPT/HCPCS: 20610; J1010; J2003 ==

== ENCOUNTER 2024-12-26 13:32 | Outpatient (AMB) | payer OTHER, MEDICAID, SELFPAY ==
--- OUTSIDE RECORDS SUMMARY | 2024-12-26 13:37 | XMS_ITS | Clinical Summary ---
Author Organization 299 [facility] Address [address] [place] [address] Phone Care Team Providers Care Swimming Pool Cleaner Name Role Phone Perico Brothers MD Primary Care Provider [phone] Social History Tobacco Use Types Packs/Day Years Used Date Smoking Tobacco: Never Assessed Sex and Gender Information Value Date Recorded Sex Assigned at Not on file Legal Sex Male 2:09 PM EST Gender Identity Not on file Sexual Orientation Not on file Plan of Treatment Health Maintenance Due Date Last Done Comments DTaP,Tdap,and Td Vaccines (1 - Tdap) 1981 Pneumococcal Vaccine: 50+ Ye ars (1 of 1 - PCV) 2012 Zoster Vaccines (1 of 2) 2012 COVID-19 Vaccine (1 - 2023-2 5 season) 2024 Depression Screening 05/21/2024 Cholesterol Screening (Lipid Panel) 06/09/2024 Colorectal Cancer Screening: Colonoscopy 06/09/2024 HIV Screening 06/09/2024 Hepatitis C Screening 06/09/2024 Social Influencers of Health Screening 06/09/2024 Influenza Vaccine (#1) 2025 RSV Immunization Adult Patie nts (1 - [...] age to complete this topic Meningococcal B Vaccine Aged Out No l onger eligible based on patient's age to complete this topic RSV Immunization Patients Un reji 20 months Aged Out No longer eligible b ased on patient's age to complete this topic Varicella Vaccines Aged Out No longer eligible based on patient's age to complete this topic Insurance [facility] Care Teams Swimming Pool Cleaner Relationship Specialty Start Date End Date Perico Brothers MD [address] [address] PCP - General Family Medicine 08/30/17
--- OUTSIDE RECORDS SUMMARY | 2024-12-26 13:37 | XMS_ITS | Clinical Summary ---
Author Organization [facility] Address [address] [place] [phone] Phone Care Team Providers Care Cardiovascular Physician Assistant Name Role Phone Zev Sanchez MD, Timothy Primary Care Provider [phone] Allergies Active Allergy Reactions Criticality Noted Date [...] EXTRA C PO) Take by mouth 09/01/2020 Activ e venlafaxine XR (EFFEXOR-XR) 150 MG 24 hr capsule Take 1 tablet by mouth 1 (one) time each day 150 in am 75 in pm 06/27/2022 Active amLODIPine (NORVASC) 5 MG tablet Take [...] THE EVENING 180 tablet 1 07/21/2024 Active risperiDONE (RisperDAL) 1 MG tablet TAKE 1-2 TABLET BY MOUTH EVERY NIGHT AT BEDTIME DIRECTED 10/08/2024 Active Active Problems Problem Noted Date Diagnosed Date Bipolar disorder 09/26/2024 Behavior finding 09/25/2024 Hypertension 07/18/2023 Stage 3b chronic kidney disease [...] Encounters Date Type Department Care Team Description 10/14/2024 8:20 AM EDT Office Visit [facility] [address] [address] Dav Xavier MD Stage 3b chronic kidney disease (HCC) (Primary Dx); Hypertension; History of nephrectomy; Cancer of left renal pelvis (HCC); Other acute kidney failure (HCC); Centrilobular emphysema (HCC) 10/12/2024 Orders Only [facility] [address] [address] Dav Xavier MD Stage 3b chronic kidney disease (HCC); Nephrolithiasis; History of nephrectomy; Hypertension; Cancer of left renal pelvis (HCC); Other acute kidney failure (HCC) from Last 3 Months Immunizations Immunization Administration Dates Next Due Influenza (IM) Preservative [...] Sign Reading Time Taken Comments Blood Pressure 129/64 10/14/2024 8:31 AM EDT Pulse 74 10/14/2024 8:31 AM EDT Temperature - - Respiratory Rate - - Oxygen Saturation 98% 10/14/2024 8:31 AM EDT Inhaled Oxygen Concentration - - Weight 102 kg (225 lb) 10/14/2024 8:31 AM EDT Height 180.3 cm (5' 11 ) 04/14/2024 9:46 AM EST Body Mass Index 31.38 04/14/2024 9:46 AM EST Plan of Treatment Upcoming Encounters Date Type Department Care Team (Late st Contact Info) Description 04/06/2025 8:20 AM EST Office Visit [facility] [address] [phone] Dav Xavier MD [address] [phone] Health Maintenance Due Date Last Done Comments Colorectal Cancer Screening: Annual FOBT 2011 Colorectal Cancer Screening: Colonoscopy 2011 Colorectal Cancer Screening: Sigmoidoscopy 2011 Influenza Vaccine (#1) 2025 , 02/15/2023, 03/06/2022, Additional history exists Pneumococcal Vaccine: 50+ Years (4 of 4 - PCV20 or PCV21) 05/10/2026 05/10/2021, 04/28/2019, 02/18/2016 Pneumococcal Vaccine: Peds (0 to 5 Years) and At-Risk Patients (6 to 49 Years) Discontinued 05/10/2021, 04/28/2019, 02/18/2016 Hepatitis B Vaccine Aged Out No longe r eligible based on patient's age to complete this topic Procedures Procedure Name Priority Date/Time Associated Diagnosis Comments PTH, INTACT Routine 10/07/2024 9:00 AM EDT MAGNESIUM Routine 10/07/2024 9:00 AM EDT PHOSPHATE ( PHOSPHORUS) Routine 10/07/2024 9:00 AM EDT URIC ACID Routine 10/07/2024 9:00 AM EDT VITAMIN D 25 HYDROXY Routine 10/07/2024 9:00 AM EDT CALCIUM, URINE, RANDOM Routine 9:00 AM EDT PROTEIN / CREATININE RATIO, URINE Routine 10/07/2024 9:00 AM EDT URINALYSIS WITH MICROSCOPIC Routine 10/07/2024 9:00 AM EDT COMPREHENSIVE METABOLIC PANEL Routine 10/07/2024 9:00 AM EDT CBC AND DIFFERENTIAL Routine 10/07/2024 9:00 AM EDT MICROSCOPIC EXAMINATION - DO NOT USE Routine 10/07/2024 9:00 AM EDT from Last 3 Months Results * Microscopic Examination (10/07/2024 9:00 AM EDT) WBC, Urine None seen 0 - 5 /hpf [facility] RBC, Urine None seen 0 - 2 /hpf [facility] Squamous Epithelial, Urine None seen 0 - 10 /hpf [facility] Casts None seen None seen /lpf [facility] Bacteria, Urine None seen None seen/Few [facility] 10/07/2024 9:00 AM EDT 10/07/2024 Dav Xavier MD LAB MICROBIOLOGY - GENERAL OR DERABLES Final Result Performing Organization Address City/[facility]/ZIP Co de Phone Number [facility] [address] [place] [address] * Protein, Total, Random Urine w/Creatinine (Protein/Creat Ratio) (10/07/2024 9:00 AM EDT) Creatinine, Ur 87.6 Not Estab. mg/dL [facility] Protein, Ur 4.7 Not Estab. mg/dL [facility] Urine Protein/Creatin ine Ratio 54 0 - 200 mg/g creat [facility] 10/07/2024 9:00 AM EDT 10/07/2024 us Dav Xavier MD LAB URINE ORDERABLES Final Re sult Performing Organization Address [facility] Co de Phone Number [facility] [address] [place] [address] * Calcium, urine, random (10/07/2024 9:00 AM EDT) Calcium, Ur 20.9 Not Estab. mg/dL [facility] 10/07/2024 9:00 AM EDT 10/07/2024 us Dav Xavier MD LAB URINE ORDERABLES Final Re sult Performing Organization Address City/[facility]/ZIP Co de Phone Number [facility] [address] [place] [address] * Vitamin D 25 Hydroxy (10/07/2024 9:00 AM EDT) Vitamin D, 25-OH, Total 41.7 30.0 - 100.0 ng/mL [facility] Comment: Vitamin D deficiency has been defined by the [place] of [employer] and an Endocrine Society practice guideline as a level of serum 25-OH vitamin D less than 20 ng/mL (1,2). The Endocrine Society went on to further define vitamin D insufficiency as a level between 21 and 29 ng/mL (2). 1. IOM ([place] of Medicine). 2010. Dietary reference intakes for calcium and D. [place]: The National Academies Press. 2. Flory MF, Dianelys NOLASCO, Jb COYNE, et al. Evaluation, treatment, and prevention of vitamin D deficiency: an Endocrine Society clinical practice guideline. JCEM. 2010; 96(7):1911-30. 10/07/2024 9:00 AM EDT 10/07/2024 us Dav Xavire MD LAB BLOOD ORDERABLES Final Re sult [facility] [address] [place] [address] * Urinalysis with microscopic (10/07/2024 9:00 AM EDT) Specific Lipscomb, Urine 1.018 1.005 - 1.030 [facility] pH Urine 7.0 5.0 - 7.5 [facility] [phone] Color, Urine Yellow Yellow [facility] Appearance Urine Clear Clear [facility] WBC Esterase Urine Negative Negative [facility] [phone] Protein, Ur Negative Negative/Tra ce [facility] Glucose, Ur Negative Negative [facility] Ketones, Urine Negative Negative [facility] Blood Urine Negative Negative [facility] Bilirubin Urine Negative Negative [facility] Urobilinogen Urine 0.2 0.2 - 1.0 mg/dL [facility] Nitrite, Urine Negative Negative [facility] Microscopic Examination Comment [facility] [phone] Comment:Microscopic follows if indicated. Other Microsc. Observations See below: [facility] [phone] Comment:Microscopic was gi cated and was performed. 10/07/2024 9:00 AM EDT 10/07/2024 us Dav Xavier MD LAB URINE ORDERABLES Final Re sult [facility] [address] [place] [address] * CBC and Differential (10/07/2024 9:00 AM EDT) WBC 7.4 3.4 - 10.8 x10E3/uL [facility] RBC 5.04 4.14 - 5.80 x10E6/uL [facility] Hemoglobin 16.4 13.0 - 17.7 g/dL [facility] Hematocrit 47.3 37.5 - 51.0 % [facility] MCV 94 79 - 97 fL [facility] MCH 32.5 26.6 - 33.0 pg [facility] MCHC 34.7 31.5 - 35.7 g/dL [facility] RDW 12.6 11.6 - 15.4 % [facility] Platelets 305 150 - 450 x10E3/uL [facility] Neutrophils Relative 58 Not Estab. % [facility] Lymphocytes Relative 30 Not Estab. % [facility] Monocytes 9 Not Estab. % [facility] Eosinophils Relative 2 Not Estab. % [facility] Basophils Relative 1 Not Estab. % [facility] Neutrophils Absolute 4.3 1.4 - 7.0 x10E3/uL [facility] Lymphocytes Absolute 2.2 0.7 - 3.1 x10E3/uL [facility] Monocytes Absolute 0.7 0.1 - 0.9 x10E3/uL [facility] Eosinophils Absolute 0.1 0.0 - 0.4 x10E3/uL [facility] Basophils Absolute 0.1 0.0 - 0.2 x10E3/uL [facility] Immature Granulocytes 0 Not Estab. % [facility] Immature Grans (Absolute) 0.0 0.0 - 0.1 x10E3/uL [facility] 10/07/2024 9:00 AM EDT 10/07/2024 us Dav Xavier MD LAB BLOOD ORDERABLES Final Re sult [facility] [address] [place] [address] * Uric Acid (10/07/2024 9:00 AM EDT) Uric Acid 6.7 3.8 - 8.4 mg/dL [facility] Comment:Therapeutic target f or gout patients: <6.0 10/07/2024 9:00 AM EDT 10/07/2024 us Dav Xavier MD LAB BLOOD ORDERABLES Final Re sult Performing Organization Address [facility]/ZIP Co de Phone Number [facility] [address] [place] [address] * Phosphorus (10/07/2024 9:00 AM EDT) Phosphorus 3.0 2.8 - 4.1 mg/dL [facility] 10/07/2024 9:00 AM EDT 10/07/2024 us Dav Xavier MD LAB BLOOD ORDERABLES Final Re sult Performing Organization Address [facility] de Phone Number [facility] [address] [place] [address] * PTH, Intact (10/07/2024 9:00 AM EDT) PTH 31 15 - 65 pg/mL [facility] 10/07/2024 9:00 AM EDT 10/07/2024 us Dav Xavier MD LAB BLOOD ORDERABLES Final Re sult Performing Organization Address [facility] de Phone Number [facility] [address] [place] [address] * Magnesium (10/07/2024 9:00 AM EDT) Magnesium 2.1 1.6 - 2.3 mg/dL [facility] 10/07/2024 9:00 AM EDT 10/07/2024 us Dav Xavier MD LAB BLOOD ORDERABLES Final Re sult Performing Organization Address City/[facility] Co de Phone Number [facility] [address] [place] [address] * (ABNORMAL) Comprehensive Metabolic Panel (10/07/2024 9:00 AM EDT) [facility] Glucose 93 70 - 99 mg/dL [facility] BUN 20 8 - 27 mg/dL [facility] Creatinine 1.44(H) 0.76 - 1.27 mg/dL [facility] eGFR CKD-EPI CR 2020 55(L) >59 mL/min/1.7 3 [facility] BUN/Creatinine Ratio 14 10 - 24 [facility] Sodium 141 134 - 144 mmol/L [facility] Potassium 4.5 3.5 - 5.2 mmol/L [facility] Chloride 103 96 - 106 mmol/L [facility] Bicarbonate (CO2) 20 20 - 29 mmol/L [facility] Calcium 9.6 8.6 - 10.2 mg/dL [facility] Total Protein 6.6 6.0 - 8.5 g/dL [facility] Albumin 4.4 3.9 - 4.9 g/dL [facility] Globulin 2.2 1.5 - 4.5 g/dL [facility] Total Bilirubin 0.4 0.0 - 1.2 mg/dL [facility] Alkaline Phosphatase 94 44 - 121 IU/L [facility] AST (SGOT) 14 0 - 40 IU/L [facility] ALT (SGPT) 13 0 - 44 IU/L [facility] 10/07/2024 9:00 AM EDT 10/07/2024 us Dav Xavier MD LAB BLOOD ORDERABLES Final Re sult [facility] [address] [place] [address] from Last 3 Months Insurance Medicaid [place] Medicare [place] Medicare Care Teams Cardiovascular Physician Assistant Relationship Specialty Start Date End Date Perico Brothers MD [address] [place] [address], [address] [place] [address] PCP - General Family Medicine 02/21/21
--- NOTE | 2024-12-26 13:39 | MHC.OFFVIS ---
Intake Visit Reasons: INJ LT shoulder/RT knee Intake Note: Mr. Cornejo is a 64-year-old male who presents to the office today for chronic left shoulder and right knee pain. He typically receives cortisone injections in both the left shoulder and right knee in his looking to repeat cortisone injections today. His last injections were performed on 08/22/2024. Allergies ciprofloxacin (From Cipro) Allergy (Severe, Verified 08/22/24 13:50) Swelling HPI HPI INJ LT shoulder/RT knee: Details: Mr. Cornejo is a 64-year-old male who presents to the office today for chronic left shoulder and right knee pain. He typically receives cortisone injections in both the left shoulder and right knee in his looking to repeat cortisone injections today. His last injections were performed on 08/22/2024. [facility] Medical History (Updated 11/13/22 @ 09:33 by Soila Christiansen) History of high blood pressure Social History Alcohol intake: never Patient Tobacco Use Status: Never used Tobacco Current occupational status: disabled Review of Systems Const All systems reviewed & are unremarkable except as noted in HPI and below Physical Exam Const General: cooperative, healthy appearing and no acute distress Resp Effort & Inspection: normal respiratory effort and able to speak in complete sentences Cardio Rate: regular rate Peripheral pulses: Peripheral pulses 2+ throughout GI Palpation (GI): Soft to palpation Skin Lesions: no lesions Rashes: no rashes Extrem Other: Left shoulder: Normal to inspection. No ecchymosis, erythema, or edema. Full shoulder ROM in all planes. Negative cross-body reach. 4/5 strength with empty can. Negative drop arm. NVI. Right knee: Normal to inspection. No ecchymosis, erythema, or joint effusion. No tenderness to palpation to the medial or lateral joint lines. Full knee extension and flexion. Negative Jennifer's. Negative anterior draw. NVI. Psych Appearance: grossly normal Mental Status: mental status grossly normal Attitude: cooperative Office Procedures AMB Joint Injection/Aspiration Joint Injection/Aspiration Primary Site: left shoulder Secondary Site: right knee Prep: site was prepped using aseptic technique, ethochloride spray was applied and injection warnings given Injected: 80 mg of, DepoMedrol, with 8 mL of (2% plain lidocaine), in the joint (Right knee) and in the subcromial space (Left shoulder) Approach Used: other (Left shoulder-posterior lateral, right knee anterior lateral) Procedure: The patient tolerated the procedure well, but had some pain with the injection and there was some relief with the local anesthesia Coding 13933 - Large joint (Left shoulder and right knee) Procedure code (CPT) selection complete Assessment & Plan Assessment & Plan (1) Painful arc syndrome of left shoulder: Code(s): M75.102 - Unspecified rotator cuff tear or rupture of left shoulder, not specified as traumatic Category: Medical (2) Internal derangement of right knee: Code(s): M23.91 - Unspecified internal derangement of right knee Category: Medical Plan The patient was offered a cortisone injection in the left shoulder and right knee with 80 mg of DepoMedrol. The patient was explained the risks, benefits, and alternatives to receiving this injection. After receiving consent for the injection, the patient had the procedure done while in the office today. The patient tolerated the procedure well with no complications. Follow-up will be PRN, or sooner if needed Coding Level of Care Code Est Pt Level 3 (87009) Diagnoses Painful arc syndrome of left shoulder M75.102 Internal derangement of right knee M23.91 CPT Codes Coding - Large joint: 55722 - Large joint ([id number])
== END 2024-12-26 13:50 | disposition home or self-care (01) ==
LOC: HO.HOS 13:33
PROVIDERS: PCP Family Medicine; Visit Provider Physician Assistant
DX: M75.102 Unspecified rotator cuff tear or rupture of left shoulder, not specified as traumatic (principal); M23.91 Unspecified internal derangement of right knee
CPT/HCPCS: 20610; 99213

== ENCOUNTER → 2024-12-26 13:32 | Outpatient (BNVA) | payer OTHER, MEDICAID, SELFPAY | PROVIDERS: PCP Family Medicine; Visit Provider Physician Assistant | DX: M25.512 Pain in left shoulder (principal); M25.561 Pain in right knee | CPT/HCPCS: 20610; J1010; J2003 ==

== ENCOUNTER 2025-01-29 09:35 | Outpatient (AMB) | payer OTHER, MEDICAID, SELFPAY ==
--- NOTE | 2025-01-29 09:42 | MHC.OFFVIS ---
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 The shoulder pain has been persistent despite receiving cortisone injections, with the most recent injection administered on December 26. The pain is described as constant and severe, rated at 9/10, and significantly impacts daily activities such as showering and using a towel. The patient also reports a history of bilateral knee pain attributed to osteoarthritis, with the right knee being more symptomatic currently. He has received cortisone injections in the right knee, but continues to experience pain, especially during activities like walking and climbing stairs. Physical therapy was attempted but provided minimal relief. The patient has a history of nephrectomy performed approximately 3 years ago and a past surgical history of colostomy following a colon rupture. The patient denies any current use of opioids but has used oxycodone in the past for pain management. - Onset: Chronic pain in the left shoulder and right>left knee, persisting for approximately 2 years. - Quality: Sharp, stabbing, throbbing pain in the left shoulder; sharp and aching in knees, constant and severe. - Location: Primarily in the left shoulder, radiating to the upper arm. - Exacerbating factors: Movement, cold weather, and daily activities such as showering and using a towel. - Relieving factors: Cortisone injections provide temporary relief; Tylenol used for pain management. - Interference: Pain affects sleep, daily activities, walking, climbing stairs, and bending knees. - Affect: Pain significantly impacts the patient's mood and daily functioning, causing distress and frustration. - Analgesia: Current pain level is 9/10; uses Tylenol and has received cortisone injections. - Adverse Effects: No adverse effects from current pain management reported. - Activities of Daily Living: Pain interferes with basic activities such as showering, dressing, and household tasks. - Aberrant Drug Related Behaviors: No evidence of medication misuse; patient has used oxycodone responsibly in the past. [facility] Medical History History of kidney cancer Pulmonary nodules HDL deficiency GERD (gastroesophageal reflux disease) Generalized anxiety disorder Kidney stone Former smoker Centrilobular emphysema Gross hematuria Diverticulosis History of high blood pressure Surgical History History of left nephrectomy Social History Alcohol intake: former Patient Tobacco Use Status: Former Tobacco user Current occupational status: disabled Review of Systems Const Details: - Musculoskeletal: Reports chronic pain in the left shoulder and right>left knee, exacerbated by movement, climbingand cold weather. - Neurological: Denies weakness, numbness, or tingling in the upper or lower extremities. - Psychiatric: Reports anxiety, managed with clonazepam. All systems reviewed & are unremarkable except as noted in HPI and below Physical Exam Vital Signs: Last Vital Signs Pulse 74 01/29/25 09:45 BP 136/91 H 01/29/25 09:45 Pulse Ox 98 01/29/25 09:45 Oxygen Delivery Method Room Air 01/29/25 09:45 BMI result Body Mass Index 30.5 General: Appears afebrile. Alert and oriented. Mood and affect appropriate. Follows and participates in conversation appropriately. Respiratory effort is unlabored. No cough. Able to transition from sit to stand unassisted. Ambulates with bilaterally normal heel strike and toe off. Extrem General: Yes capillary refill normal, Yes no clubbing, cyanosis or edema and Yes no calf tenderness Left upper extremity: shoulder/upper arm (Limited ROM, increased pain with internal and external rotations.) Details: inspection abnormal, tenderness Location: of the A-C joint and over the subacromial bursa and crepitus; no swelling, no ecchymosis and no unsual warmth Right lower extremity: knee (Limited ROM due to pain) Details: normal to inspection, tenderness Location: of the patella, of the medial joint line and of the lateral joint line and crepitus; no swelling, no ecchymosis and no unusual warmth Results Reviewed Results Reviewed: XR SHOULDER, LEFT 09/05/22 CLINICAL INFORMATION: Pain. COMPARISON: None available. TECHNIQUE: Three views of the left shoulder. FINDINGS: There is mild acromioclavicular osteoarthritis. Glenohumeral joint is well preserved. No fracture. Alignment is anatomic. Soft tissues are normal with no abnormal calcifications. IMPRESSION: No acute fractures or malalignment. Mild acromioclavicular osteoarthritis. MR KNEE WITHOUT CONTRAST, RIGHT 06/16/22 CLINICAL INFORMATION: Right knee pain. Internal derangement. COMPARISON: Right knee radiographs dated 05/30/2022. TECHNIQUE: MRI of the knee without contrast was performed using routine sequences on a high-field scanner. FINDINGS: MENISCI: MEDIAL MENISCUS: Intact LATERAL MENISCUS: Intact LIGAMENTS: CRUCIATE: Intact COLLATERAL: Intact EXTENSOR MECHANISM: Minimal distal quadriceps tendinosis. Intact patellar tendon. Normal patellofemoral alignment. ARTICULAR CARTILAGE/BONE: PATELLOFEMORAL COMPARTMENT: Focal articular cartilage fissuring at the inferior aspect of the patellar median ridge with minimal underlying subchondral cystic change. Medial patellar facet articular cartilage signal heterogeneity. Tiny marginal osteophytes. MEDIAL COMPARTMENT: Intact articular cartilage. LATERAL COMPARTMENT: Intact articular cartilage. JOINT FLUID AND BURSAE: Trace joint effusion. IMPRESSION: 1. No acute meniscal or ligamentous injury. 2. Minimal distal quadriceps tendinosis. 3. Minimal patellofemoral arthrosis. Trace joint effusion. Assessment & Plan Assessment & Plan (1) Painful arc syndrome of left shoulder: Code(s): M75.102 - Unspecified rotator cuff tear or rupture of left shoulder, not specified as traumatic Category: Medical (2) Left shoulder pain: Code(s): M25.512 - Pain in left shoulder Category: Medical (3) Tendonitis of left rotator cuff: Code(s): M75.82 - Other shoulder lesions, left shoulder Category: Medical (4) Internal derangement of right knee: Code(s): M23.91 - Unspecified internal derangement of right knee Category: Medical (5) Bilateral knee pain: Code(s): M25.561 - Pain in right knee; M25.562 - Pain in left knee Category: Medical (6) Osteoarthritis of knees, bilateral: Code(s): M17.0 - Bilateral primary osteoarthritis of knee Category: Medical Plan The plan includes obtaining an MRI of the left shoulder to assess for any rotator cuff pathology, as this will guide further management options. Discussed interventional treatments for left shoulder pain, including diagnostic nerve block for potential radiofrequency ablation (RFA) or Sprint PNS trial for pain management. In the interim, the patient has been provided with a one-time prescription for oxycodone to manage severe pain (>7-10/10) and was also educated on the use of Narcan as a precautionary measure when using opioids. All questions and concerns have been answered and patient agreed with the treatment plan. Follow up for MRI results and sooner as needed. Patient was informed and verbally consented to the use of an ambient scribe for clinic note documentation during this visit. Orders: Orders MR shoulder LT wo con 01/29/25 M25.512 - Pain in left shoulder, M75.102 - Unspecified rotator cuff tear or rupture of left shoulder, not specified as traumatic, M75.82 - Other shoulder lesions, left shoulder Medications: New oxycodone Partial Fill upon patient request. 5 mg PO Q8H PRN 30 tabs 0RF pain (scale score 7-10) 10 days M25.512 - Pain in left shoulder, M75.102 - Unspecified rotator cuff tear or rupture of left shoulder, not specified as traumatic, M75.82 - Other shoulder lesions, left shoulder naloxone 4 mg/actuation (Narcan) spray 1 dose into ONE nostril; alternate nostrils w each dose until help arrives 4 mg intranasal Q2M PRN 2 ea 0RF opioid overdose Coding Level of Care Code New Pt Level 4 (04874) Diagnoses Painful arc syndrome of left shoulder M75.102 Left shoulder pain M25.512 Tendonitis of left rotator cuff M75.82 Internal derangement of right knee M23.91 Bilateral knee pain M25.561; M25.562 Osteoarthritis of knees, bilateral M17.0
[2025-01-29 09:45] VITALS: BP 136/91; PULSE 74; O2SAT 98; BMI 30.5
--- OUTSIDE RECORDS SUMMARY | 2025-01-29 11:13 | XMS_ITS | Encounter Summary ---
Author Organization [facility] Address [address] [place] [address] [place] [id number] Phone Care Team Providers Care Epic Radiant Analyst Name Role Phone Tiffanie Brown MD Unavailable [phone] Michelle Carmona CERTIFIED PEER SPECIALIST Unavailable [phone] Eric López MD Unavailable [phone] Adrian Jin WHEEL CUTTER Unavailable [phone] Jhoan Wild MD Unavailable [phone] Perico Brothers MD Primary Care Provider + [phone] Perico Brothers MD Unavailable [phone] Encounter Details Date Type Department Care Team (Latest Contact Info) Description 05/25/2017 Transcribe Orders [facility] Medicine [address] [place] [id number] Perico Brothers MD [address] [place] [address], [address] [place] [address] [email or web address] Multiple lung nodules on CT (Primary Dx) Social History Tobacco Use Types Packs/Day Years Used Date Smoking Tobacco: Every Day Cigarettes Smokeless Tobacco: Never Alcohol Use Standard Drinks/Week Comments No 0 (1 standard drink = 0.6 oz pur e alcohol) Sex and Gender Information Value Date Recorded Sex Assigned at Male 05/28/2017 9:38 AM EST Legal Sex Male 9:45 PM EDT Gender Identity Male 05/28/2017 9:38 AM EST Sexual Orientation Straight 05/28/2017 9: 38 AM EST documented as of this encounter Plan of Treatment Upcoming Encounters Date Type Department Care Team (Late st Contact Info) Description 02/03/2025 8:45 AM EDT Office Visit [facility] [address] [place] [address] Perico Brothers MD [address] [facility], [address] [place] [address] [email or web address] documented as of this encounter Results * CT CHEST LUNG CANCER SCREENING INITIAL (06/04/2017 11:15 AM EST) Anatomical Region Laterality Modality Chest Computed Tomogra phy 06/04/2017 11:2 0 AM EST Impressions 06/04/2017 11:27 AM EST Small subcentimeter less than 5 mm pulmonary nodules evident which are unchanged. No findings of concern for malignancy are identified. LUNG RAD: LUNG RAD CATEGORY 2 - BENIGN APPEARANCE OR BEHAVIOR - CONTINUE ANNUAL SCREENING WITH LDCT IN 12 MONTHS TOTAL CTDIvol: 1.70 mGy POS [id number] Narrative 06/04/2017 11:27 AM EST HISTORY: Low dose CT lung cancer screening. TECHNIQUE: Non-contrast, low dose axial CT with sagittal and coronal reconstructions. COMPARISON EXAM: CT chest September 13, 2015 and earlier This is a 57 year old patient referred for Low Dose CT Lung Cancer Screening (LDCT). The patient has no signs or symptoms of lung cancer and has a 30-pack year or greater history of tobacco smoking. They are a current smoker and have a written order for LDCT from a qualified health professional following a lung cancer screening counseling that attests to shared decision-making having taken place before their first screening CT. The patient is also offered smoking cessation material at the time of the LDCT. Automated exposure control utilized. RESULTS: Right lung: There are minor emphysematous changes. Minor subcentimeter subpleural less than 5 mm nodules are present at the right lung base and right middle lobe. These are unchanged. Left lung: Minor emphysematous disease. Minimal subcentimeter subpleural nodules are noted which are less than 3 mm in diameter. Mediastinum and latricia: No mediastinal or hilar lymphadenopathy is suggested. No coronary artery calcification is seen. Chest wall and thoracic inlet: The thyroid gland is unremarkable. Small non-specific axillary lymph nodes are present. Abdominal structures including liver, spleen, bowel, adrenals: No adrenal masses are noted. No focal hepatic or splenic pathology is noted in the areas visualized. Bones and other: Mild degenerative changes evident in the thoracic spine. No compression fracture is seen. Procedure Note Hi Odonnell MD - 06/04/2017 HISTORY: Low dose CT lung cancer screening. TECHNIQUE: Non-contrast, low dose axial CT with sagittal and coronalreconstructions. COMPARISON EXAM: CT chest September 13, 2015 and earlier This is a 57 year old patient referred for Low Dose CT Lung CancerScreening (LDCT). The patient has no signs or symptoms of lung cancer andhas a 30-pack year or greater history of tobacco smoking. They are acurrent smoker and have a written order for LDCT from a qualified healthprofessional following a lung cancer screening counseling that attests toshared decision-making having taken place before their first screening CT.The patient is also offered smoking cessation material at the time of theLDCT. Automated exposure control utilized. RESULTS: Right lung: There are minor emphysematous changes. Minor subcentimetersubpleural less than 5 mm nodules are present at the right lung base andright middle lobe. These are unchanged. Left lung: Minor emphysematous disease. Minimal subcentimeter subpleuralnodules are noted which are less than 3 mm in diameter. Mediastinum and latricia: No mediastinal or hilar lymphadenopathy issuggested. No coronary artery calcification is seen. Chest wall and thoracic inlet: The thyroid gland is unremarkable. Smallnon- specific axillary lymph nodes are present. Abdominal structures including liver, spleen, bowel, adrenals: No adrenalmasses are noted. No focal hepatic or splenic pathology is noted in theareas visualized. Bones and other: Mild degenerative changes evident in the thoracic spine.No compression fracture is seen. IMPRESSION: Small subcentimeter less than 5 mm pulmonary nodules evident which areunchanged. No findings of concern for malignancy are identified. LUNG RAD: LUNG RAD CATEGORY 2 - BENIGN APPEARANCE OR BEHAVIOR - CONTINUEANNUAL SCREENING WITH LDCT IN 12 MONTHS TOTAL CTDIvol: 1.70 mGy POS [id number] Perico Brothers MD IMG CT CHEST Final Resu lt documented in this encounter Visit Diagnoses Diagnosis Multiple lung nodules on CT- Primary Multiple lung nodules on CT documented in this encounter Care Teams Epic Radiant Analyst Relationship Specialty Start Date End Date Perico Brothers MD [address] [place] [address], [address] [place] [address] PCP - General 03/24/17 Tiffanie Brown MD [address] [place] [id number] Historical LMR Provider 03/10/17 Michelle Carmona, JOSUE [address] [place] [address] [place] [address] Historical LMR Provider 03/10/17 Eric López MD [address] [place] [address], [address] [place] [address] Historical LMR Provider 03/10/17 05/28/21 Adrian Jin CNP [address] [place] [address] Historical LMR Provider 03/10/17 05/28/21 Jhoan Wild MD [address] [place] [address] Historical LMR Provider 03/10/17 8 Perico Brothers MD [address] [place] [address], [address] [place] [address] [email or web address] Insurance Assigned Provider 08/28/2001/27/23 documented as of this encounter Additional Source Comments The information contained in this document represents components of the legal health record. It is not the complete legal health record.[facility]
--- OUTSIDE RECORDS SUMMARY | 2025-01-29 11:13 | XMS_ITS | Encounter Summary ---
Author Organization [facility] Address [address] [place] [address] Phone Care Team Providers Care Professor Of Historical Theology Name Role Phone Perico Brothers MD Primary Care Provider [phone] Perico Brothers MD Unavailable Reason for Referral * MRI/CAT Scan - Closed Specialty Diagnoses / Procedures Referred By Tamie galindo Referred To Contact Radiology Diagnoses Abdominal pain, unspecified abdominal location Nausea Gas pain Procedures CT Abdomen/Pelvis Cely Lorenzo PA-C Phone: tel: fax: [email or web address] Referral ID Status Reason Start Date Expiration Date Visits Re quested Visits Authorized [id number] Closed 10/17/2022 10/17/2023 1 1 Encounter Details Date Type Department Care Team (Latest Contact Info) Description 10/17/2022 Transcribe Orders Virtual Department [address] [place] [address] Cely Lorenzo PA-C [address] [place] [address] [email or web address] Abdominal pain, unspecified abdominal location (Primary Dx); Nausea; Gas pain Social History Tobacco Use Types Packs/Day Years Used Date Smoking Tobacco: Former Cigarettes 1 38 1 05/24/1980 - 01/28/2019 Smokeless Tobacco: Never Alcohol Use Standard Drinks/Week Comments No 0 (1 standard drink = 0.6 oz pur e alcohol) Child or Family Care Answer Date Record ed Do you have problems with on e of the following making it difficult for you to work, study, or receive health care? No 05/10/2021 Education Answer Date Recorded Are you interested in help w ith more adult education (for example, completing high school, GED, job training, learning the [place] language, technical skills, or developing parenting skills)? No 05/10/2021 Food Answer Date Recorded Within the past 6 months we worried whether our food would run out before we got money to buy more. Sometimes True 021 Within the past 6 months the food we bought just didn't last and we didn't have enough money to get more. Sometimes True 04/21 Residential Stability Answer Date Recor ded What is your housing situation today? I have dunia sing 05/10/2021 How many times have you move d in the past 12 months? Zero (I did not move) 05/10/2021 06 Are you worried that in t he next 2 months, you may not have your own housing to live in? No 05/10/2021 Paying for Meds Answer Date Recorded Do you have trouble paying for medicines? No 05/10/2021 Paying Utility Bills Answer Date Record ed Do you have trouble paying your heating or elect ricity bill? Yes 05/10/2021 Transportation Answer Date Recorded Has the lack of transportati on kept you from medical appointments or from getting medications? Yes 05/10/2021 Unemployment Answer Date Recorded Are you currently unemployed or working on a part-time or temporary basis, and looking for work? I choose not to answer 05/10/2021 Digital Access Answer Date Recorded No 10/11/2022 No 10/11/2022 No 10/11/2022 Reliable internet access at home? Not on file 10/11/2022 Device with a working camera? Not on file Sex and Gender Information Value Date Recorded Sex Assigned at Male 05/28/2017 9:38 AM EST Legal Sex Male 9:45 PM EDT Gender Identity Male 05/28/2017 9:38 AM EST Sexual Orientation Straight 05/28/2017 9: 38 AM EST documented as of this encounter Plan of Treatment Upcoming Encounters Date Type Department Care Team (Late st Contact Info) Description 02/03/2025 8:45 AM EDT Office Visit [address] [place] [address] Perico Brothers MD [address] [facility], [address] [place] [address] [email or web address] documented as of this encounter Results * CT ABDOMEN/PELVIS WITH CONTRAST (11/14/2022 9:28 AM EDT) Anatomical Region Laterality Modality Abdomen, Pelvis Computed Tomogra phy 11/18/2022 1:13 PM EDT Impressions 11/19/2022 6:07 AM EDT No evidence of recurrent or metastatic disease in the abdomen or pelvis. Narrative 11/19/2022 6:[address] ABDOMEN/PELVIS WITH CONTRAST TECHNIQUE: Multidetector-row CT of the abdomen and pelvis was performed after administration of intravenous contrast using tailored dose modulation techniques. Images were reconstructed in the axial, coronal, and sagittal planes. COMPARISON: CT angiogram abdomen/pelvis 06/08/2020. FINDINGS: Lower Chest: Normal. No consolidation or pleural effusions. Liver: Benign segment 2 hypodensities, likely cysts or hemangiomas. No suspicious focal liver lesion. Biliary: No biliary ductal dilatation. Spleen: Normal. No splenomegaly or focal lesions. Pancreas: Normal. No masses or ductal dilatation. Adrenal Glands: Normal. No nodules. Kidneys/Ureters: No solid renal mass or hydronephrosis. Left nephrectomy without local recurrence. 4 mm nonobstructing right renal stone. Bowel: Anastomotic sutures in the sigmoid colon. Colonic diverticulosis. No bowel obstruction or wall thickening. Peritoneum/Retroperitoneum: Normal. No masses, pneumoperitoneum, or fluid. Lymph Nodes: Normal. No lymphadenopathy. Pelvic Organs/Bladder: Normal. No mass. Vessels: No abdominal aortic aneurysm. Bones/Soft Tissues: Small fat-containing bilateral inguinal hernias. Benign L2 vertebral hemangioma. No suspicious focal osseous lesion. Procedure Note Rohit Figueroa MD - 11/19/2022 CT ABDOMEN/PELVIS WITH CONTRAST TECHNIQUE: Multidetector-row CT of the abdomen and pelvis was performedafter administration of intravenous contrast using tailored dosemodulation techniques. Images were reconstructed in the axial, coronal,and sagittal planes. COMPARISON: CT angiogram abdomen/pelvis 06/08/2020. FINDINGS: Lower Chest: Normal. No consolidation or pleural effusions. Liver: Benign segment 2 hypodensities, likely cysts or hemangiomas. Nosuspicious focal liver lesion. Biliary: No biliary ductal dilatation. Spleen: Normal. No splenomegaly or focal lesions. Pancreas: Normal. No masses or ductal dilatation. Adrenal Glands: Normal. No nodules. Kidneys/Ureters: No solid renal mass or hydronephrosis. Left nephrectomywithout local recurrence. 4 mm nonobstructing right renal stone. Bowel: Anastomotic sutures in the sigmoid colon. Colonic diverticulosis.No bowel obstruction or wall thickening. Peritoneum/Retroperitoneum: Normal. No masses, pneumoperitoneum, orfluid. Lymph Nodes: Normal. No lymphadenopathy. Pelvic Organs/Bladder: Normal. No mass. Vessels: No abdominal aortic aneurysm. Bones/Soft Tissues: Small fat-containing bilateral inguinal hernias.Benign L2 vertebral hemangioma. No suspicious focal osseous lesion. IMPRESSION: No evidence of recurrent or metastatic disease in the abdomen or pelvis. Cely Lorenzo PA-C IMVivien CT ABD/PELVIS Final Result documented in this encounter Visit Diagnoses Diagnosis Abdominal pain, unspecified abdominal location- Primary Nausea Nausea alone Gas pain Flatulence, eructation, and gas pain Abdominal pain, unspecified abdominal location Nausea Nausea alone Gas pain Flatulence, eructation, and gas pain documented in this encounter Additional Health Concerns Assessment Noted Time PHQ-9 Depression Total Score: 6 11/10/19 22 9:50 AM EDT PHQ-2 Depression Total Score: 2 12/10/19 22 10:42 AM EDT documented as of this encounter Care Teams Professor Of Historical Theology Relationship Specialty Start Date End Date Perico Brothers MD [address] [place], [place] [address] [place] [address] [email or web address] PCP - General 03/24/17 Perico Brothers MD [address] [place] [address], [address] [place] [address] [email or web address] Insurance Assigned Provider 08/28/2001/27/23 documented as of this encounter Additional Source Comments The information contained in this document represents components of the legal health record. It is not the complete legal health record.[facility]
--- OUTSIDE RECORDS SUMMARY | 2025-01-29 11:13 | XMS_ITS | Encounter Summary ---
Author Organization [facility] Address [address] [place] [phone] Phone Care Team Providers Care Career Services Assistant Name Role Phone Perico Brothers MD Primary Care Provider [phone] Perico Brothers MD Unavailable [phone] Encounter Details Date Type Department Care Team (Late st Contact Info) Description 10/17/2022 Procedure Pass [facility], Ct Scan - [address] [address] Social History Tobacco Use Types Packs/Day Years [...] high school, GED, job training, learning the [place] Citizen language, technical skills, or developing parenting skills)? [...] your housing situation today? I have dunia jones 05/10/2021 How many times have you move [...] Description 02/03/2025 8:45 AM EDT Office Visit [facility] [address] [place] [address] [place] [address] Perico Brothers MD [address] [place] [address], [address] [place] [address] [email or web address] documented as of this encounter Visit Diagnoses Not on filedocumented in this encounter Additional Health Concerns Assessment Noted Time PHQ-9 Depression Total Score: 6 11/10/19 9:50 AM EDT PHQ-2 Depression Total Score: 2 12/10/19 10:42 AM EDT documented as of this encounter Care Teams Career Services Assistant Relationship Specialty Start Date End Date Perico Brothers MD [address] [place] [address], [address] [place] [address] [email or web address] PCP - General 03/24/17 Perico Brothers MD [address] [place] [address], [address] [place] [address] [email or web address] Insurance Assigned Provider 08/28/2001/27/23 documented as of this encounter Additional Source Comments The information contained in this document represents components of the legal health record. It is not the complete legal health record.[facility]
--- OUTSIDE RECORDS SUMMARY | 2025-01-29 11:13 | XMS_ITS | Encounter Summary ---
Author Organization [facility] Address [address] [place] [address] [place] [phone] Phone Care Team Providers Care Train Electronic Technician Name Role Phone Perico Brothers MD Primary Care Provider [phone] Perico Brothers MD Unavailable [phone] Reason for Visit * Reason Onset Date Comments Blood Pressure Check 09/05/2022 Encounter Details Date Type Department Care Team (Late st Contact Info) Description 09/05/2022 Nurse Triage [address] [id number] Perico Brothers MD [address] [place] [address] [email or web address] Blood Pressure Check Social History Tobacco Use Types Packs/Day Years [...] high school, GED, job training, learning the Citizen [place] language, technical skills, or developing parenting skills)? [...] work? I choose not to answer 05/10/2021 Sex and Gender Information Value Date Recorded Sex Assigned at Male 05/28/2017 9:38 AM EST Legal Sex Male 9:45 PM EDT Gender Identity Male 05/28/2017 9:38 AM EST Sexual Orientation Straight 05/28/2017 9: 38 AM EST documented as of this encounter Progress Notes * Lori Nayak RN - 09/05/2022 12:53 PM EDT Images from the original note were not included. JOSUE Friedman MD; [facility] Rn 4 minutes ago (12:48 PM) KB I am hesitant to think this increase in BP is related to venlafaxine as Ed has been taking this medication for a year now at this daily dose. Consult with JOSUE Antunez ended in November 2021. Patient has been taking venlafaxine 150 mg since June 2021. Systolic blood pressure is slightly elevated beyond recent readings 07/18 in our office and 07/17 and 04/19 with nephrology. Left message for patient, requested call back to schedule BP check per Dr. Brothers. To any staff- can book on NUV scheduled 09/07 1 pm if this is still available when patient calls back. Otherwise, please use triage spot and book with Dr. Brothers/[employer] Enma Soliman next week. * Perico Brothers MD - 09/05/2022 12:30 PM EDT I agree -venlafaxine at higher doses can elevate bp. So needs an adjustment. * Lata Sung RN - 09/05/2022 12:04 PM EDT Nurse Triage Encounter Note Reason for Triage Vinay Cornejo contacted office for Blood Pressure Check Call Disposition Casework Manager Patient/caregiver understands and will follow disposition: Yes Patient/caregiver understands and will follow care advice: Yes, Plans To Follow Advice Disposition Comments: Protocols used: Blood Pressure - Yxgh-Dikgi-Dy Care Advice Given Care Advice Patient/Caregiver understands and will follow care advice?: Yes, plans to follow advice No Care Advice given for this encounter. Patient will call back with additional questions or if symptoms change or worsen Lata Sung RN Reason for Disposition and Assessment Reason for Disposition ??? Patient wants to be seen Answer Assessment - Initial Assessment Questions 1. BLOOD PRESSURE: What is the blood pressure? Did you take at least two measurements 5 minutes apart? Pt reports today was 147/90 states was newly prescribed Venlafaxine 150mg daily prescribed by Dr. Antunez states, since this medication feels BP has gone up, reports he called Dr. Valverde office to report this will await a call back 2. ONSET: When did you take your blood pressure? Today 3. HOW: How did you obtain the blood pressure? (e.g., visiting nurse, automatic home BP monitor) Ortho office 4. HISTORY: Do you have a history of high blood pressure? Reports was prescribed Amlodipine 2.5mg daily a year ago from pcp also reports he has one kidney 5. MEDICATIONS: Are you taking any medications for blood pressure? Have you missed any doses recently? No missed doses reports compliance with medication daily 6. OTHER SYMPTOMS: Do you have any symptoms? (e.g., headache, chest pain, blurred vision, difficulty breathing, weakness) Pt reports periodic headaches states he has always had this, denied CP, SOB, or dizziness 7. : Is there any chance you are ? When was your last menstrual period? N/A Protocols used: BLOOD PRESSURE - [id number] * Mer Moreno - 09/05/2022 11:22 AM EDT Pt calls stating his BP is obey high- please advise. documented in this encounter Plan of Treatment Upcoming Encounters Date Type Department Care Team (Late st Contact Info) Description 02/03/2025 8:45 AM EDT Office Visit [facility] [address] [place] [address] [place] [address] Perico Brothers MD [address] [place] [address], [address] [place] [address] [email or web address] documented as of this encounter Visit Diagnoses Not on filedocumented in this encounter Additional Health Concerns Assessment Noted Time PHQ-9 Depression Total Score: 6 11/10/19 22 9:50 AM EDT PHQ-2 Depression Total Score: 2 12/10/19 22 10:42 AM EDT documented as of this encounter Care Teams Train Electronic Technician Relationship Specialty Start Date End Date Perico Brothers MD [address] [place] [address], [address] [place] [address] PCP - General 03/24/17 Perico Brothers MD [address] [place] [address], [address] [place] [address] [email or web address] Insurance Assigned Provider 08/28/2001/27/23 documented as of this encounter Additional Source Comments The information contained in this document represents components of the legal health record. It is not the complete legal health record.[facility]
--- OUTSIDE RECORDS SUMMARY | 2025-01-29 11:13 | XMS_ITS | Clinical Summary ---
Author Organization [facility] Address [address] [place] [phone] Phone Care Team Providers Care Sofa Cover Inspector Name Role Phone Perico Brothers MD Primary Care Provider [phone] Allergies Active Allergy Reactions Criticality Noted Date Comments Ciprofloxacin 04/23/2018 Sertraline 06/23/2019 Paradoxical anxiety Medications * This document contains information received from the source organization and may not represent a complete record from that organization. cimetidine (TAGAMET) 400 MG tablet Take 1 tablet by mouth nightly at bedtime. 10/21/2019 Active multivitamins capsule Take 1 capsule by mouth daily. Active potassium citrate (UROCIT-K) 15 mEq SR tablet Take 15 mEq by mouth 2 (two) times a day. 03/11/2022 Active venlafaxine (EFFEXOR-XR) 150 MG 24 hr capsule take 1 capsule by mouth every day 90 capsule 1 06/21/2023 Active pantoprazole (PROTONIX) 20 MG tablet Take 1 tablet by mouth every morning. 06/11/2023 Active traZODone (DESYREL) 100 MG tablet Take 100 mg by mouth. 01/01/2024 Active cloNIDine HCL (CATAPRES) 0.1 MG tablet Take 0.1 mg by mouth 2 (two) times a day. 07/07/2024 Active amLODIPine (NORVASC) 5 MG tablet TAKE 1 TABLET (5 MG TOTAL) BY MOUTH DAILY. 90 tablet 1 08/20/2024 Active clonazePAM (KLONOPIN) 1 MG tabletIndicatio ns:Generalized anxiety disorder Take 1 tablet (1 mg total) by mouth 2 (two) times a day. 14 tablet 08/21/2024 Active risperiDONE (RISPERDAL) 2 MG tablet Take 1 tablet (2 mg total) by mouth nightly at bedtime. 14 tablet 1 10/01/2024 Active LORazepam (ATIVAN) 0.5 MG tablet Take 0.5 mg by mouth once as needed (prior to bladder checks). 11/15/2024 Active oxyCODONE 5 MG immediate release tablet Take 5 mg by mouth once as needed (prior to bladder checks). 11/15/2024 Active Active Problems Problem Noted Date Diagnosed Date Chronic left shoulder pain 01/01/2025 Bipolar disorder, unspecified 09/26/2024 Disorganized behavior 09/25/2024 Class 1 obesity due to exces s calories with serious comorbidity and body mass index (BMI) of 31.0 to 31.9 in adult 12/26/2023 Moderate episode of recurrent major depressive d isorder 06/27/2023 Primary osteoarthritis of right knee 02/28/2023 Assessment & Plan (12/11/2024 11:12 AM EDT): Pt reporting improved pain, having easier time getting around with use of Percocet. Will continue current dosing schedule until injection appointment with ortho. Will discontinue use at that time. Pt will call if pain worsens or he has other side effects. He will follow up with PCP as planned in mid December. Pt verbalized understanding, agreeable to plan. Orders: oxyCODONE-acetaminophen (PERCOCET) 5-325 mg per tablet; Take 1 tablet by mouth every 8 (eight) hours as needed for pain (specific location in comments). ChronicPain-partial fill ok Assessment & Plan (12/04/2024 4:31 PM EDT): Chronic pain exacerbated by delayed injections, limiting to Tylenol and narcotics due to single kidney. Scheduled gel injections expected to alleviate pain. - Prescribed Percocet for severe breakthrough pain, every eight hours as needed, max three times daily for one week trial. - Scheduled telemedicine follow-up in one week to assess pain management and response to medication. - Advised continued Tylenol use, not exceeding maximum daily dose with Percocet. - Instructed to monitor for constipation and sedation, maintain hydration. - Advised caution with activities requiring alertness if sedation occurs. - Arranged follow-up with cash posting specialist for injections on December 26. -Pt has no substance use disorder history, he has remote history of alcohol misuse but has not drank in many years. -He is aware of side effects and risks of opiate use. Will use sparingly only. Orders: oxyCODONE-acetaminophen (PERCOCET) 5-325 mg per tablet; Take 1 tablet by mouth every 8 (eight) hours as needed for pain (specific location in comments). 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 Gross hematuria 06/14/2020 Centrilobular emphysema 04/28/2019 Former smoker 03/24/2019 BPH with obstruction/lower urinary tract symptom s 04/23/2018 Kidney stone 04/23/2018 Generalized anxiety disorder 05/28/2017 Gastroesophageal reflux dise ase with esophagitis without hemorrhage 05/28/2017 HDL deficiency 05/28/2017 Pulmonary nodules 05/28/2017 Diverticulosis Encounters Date Type Department Care Team Description 01/06/[address] [place] [address] Lori Nayak 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 01/06/[address] [place] [address] Starr Sanchez LPN Appointment 01/01/2025 11:00 AM EDT Office Visit [address] [place] [address] Raphael Ramirez DO Primary osteoarthritis of right knee (Primary Dx); Chronic left shoulder pain; History of left nephrectomy 01/01/[address] [place] [address] Brea Moss Care Agreement 01/01/[address] [place] [address] Perico Brothers MD 01/01/[address] [place] [address] Perico Brothers MD Referral ([facility] Procedure Date 01/01) 12/31/[address] [address] Maryjane Serrano Triage (Yellow + knee pain ) 12/11/2024 11:00 AM EDT Telemedicine - audio only [address] [place] [address] Enma Soliman CNP Primary osteoarthritis of right knee 12/04/2024 4:00 PM EDT Office Visit [address] [place] [address] Enma Soliman CNP Primary osteoarthritis of right knee (Primary Dx) 12/03/[address] [place] [address] Perico Brothers MD Triage (Yellow - Pain in Shoulder, Arm, Knee) 11/18/[address] [place] [address] Beronica Urban, RN Results 11/10/[address] [address] Perico Brothers MD Referral (melissa([facility] urology)) 11/08/2024 9:29 AM EDT - 11/08/2024 11:59 PM EDT Hospital Encounter [address] [address] Perico Brothers MD Discharge Disposition: Home or Self Care 10/24/2024 Procedure Pass [facility] [address] [place] [address] from Last 3 Months Immunizations Immunization Administration Dates Next Due COVID-19 (Pre-03/12) Pfizer Vaccine, mRNA, PF 04/28/2021,09/26/2020,09/05/2020 INFLUENZA, SPLIT VIRUS, TRIVALENT PF 02/05/2024, 01/25/2017,01/18/2016 INFLUENZA, SPLIT VIRUS, TRIV ALENT W/ PRESERVATIVE IM 01/18/2016,02/12/2012 Influenza Quadrivalent MDCK Preservative Free IM 02/04/2019 Influenza Quadrivalent Prese rvative Free IM 02/15/2023,03/06/2022,02/20/2021,03/14,02/04/2019,02/22/2018 Influenza trivalent preserva tive free intradermal 03/06/2014 Influenza, Unspecified Formulation 02/22/2018 Pneumococcal conjugate PCV13 04/28/2019 Pneumococcal polysaccharide PPSV23 05/10/2021, RSV Vaccine (monovalent, adjuvanted) 05/02/2023 Tdap 04/23/2018,01/08/2006 Zoster recombinant 03/14/2020,01/10/2020 Family History Medical History Relation Comments Diabetes mellitus Father 2 Relation Status Comments Father 1 Father 2 Social History Tobacco Use Types Packs/Day Years Used Date Smoking Tobacco: Former Cigarettes 1 38 1 05/24/1980 - 01/28/2019 Smokeless Tobacco: Never Tobacco Cessation:Counseling Given: Not Answered Alcohol Use Standard Drinks/Week Comments No 0 (1 standard drink = 0.6 oz pur e alcohol) Child or Family Care Answer Date Record ed Do you have problems with on e of the following making it difficult for you to work, study, or receive health care? No 12/21/2022 Education Answer Date Recorded Are you interested in more education? Not on morena e 12/26/2024 Are you concerned about learning? Not on file 12/26/2024 No 12/26/2024 No 12/26/2024 Food Answer Date Recorded Within the past 6 months we worried whether our food would run out before we got money to buy more. Never True 09/26/2024 Within the past 6 months the food we bought just didn't last and we didn't have enough money to get more. Never True Residential Stability Answer Date Recor ded What is your housing situation today? I have dunia jones 09/26/2024 How many times have you move d in the past 12 months? Zero (I did not move) 09/26/2024 Paying for Meds Answer Date Recorded Do you have trouble paying for medicines? No 09/26/2024 Paying Utility Bills Answer Date Record ed Do you have trouble paying your heating or elect ricity bill? No 09/26/2024 Transportation Answer Date Recorded Has the lack of transportati on kept you from medical appointments or from getting medications? No 09/26/2024 Unemployment Answer Date Recorded Are you currently unemployed or working on a part-time or temporary basis, and looking for work? I choose not to answer 05/10/2021 Digital Access Answer Date Recorded No 09/26/2024 Yes 09/26/2024 Do you have reliable internet access at home? Ye s 09/26/2024 Do you have a device (e.g., phone, tablet, computer) with a working camera? Yes 09/26/2024 SNAP & WIC Answer Date Recorded Do you receive benefits from SNAP (the Supplemental Nutrition Assistance Program) or the Food Stamp Program? Yes 12/21/2022 SNAP is a free program, interested in learning m ore? Not on file 12/21/2022 Can we help you enroll in SNAP? Not on file 12/21/2022 Benefits received from WIC? Not on file 07/2022 WIC is a free program, interested in learning mo re? Not on file 12/21/2022 Can we help you enroll in WIC? Not on file 0 12/21/2022 Intimate Partner Violence Answer Date R ecorded Are you denied basic needs s uch as food, clothing, or medical care? No 09/26/2024 In the past 12 months have y ou been in a relationship with a person who hurts, threatens, or tries to control you? No 09/26/2024 Are you denied basic needs s uch as food, clothing, or medical care? No 09/26/2024 In the past 12 months have y ou been in a relationship with a person who hurts, threatens, or tries to control you? No 09/26/2024 Sex and Gender Information Value Date Recorded Sex Assigned at Male 05/28/2017 9:38 AM EST Legal Sex Male 9:45 PM EDT Gender Identity Male 05/28/2017 9:38 AM EST Sexual Orientation Straight 05/28/2017 9: 38 AM EST Last Filed Vital Signs Vital Sign Reading Time Taken Comments Blood Pressure 122/78 01/01/2025 11:04 AM EDT Pulse 75 01/01/2025 11:04 AM EDT Temperature 36.2 C (97.1 F) 12/04/2024 4:03 PM EDT Respiratory Rate 16 10/01/2024 7:00 AM EDT Oxygen Saturation 97% 01/01/2025 11:04 AM EDT Inhaled Oxygen Concentration - - Weight 102.1 kg (225 lb) 01/01/2025 11:04 AM EDT Height 182.9 cm (6' 0.01 ) 01/01/2025 11:04 AM E DT Body Mass Index 30.51 01/01/2025 11:04 AM EDT Plan of Treatment Upcoming Encounters Date Type Department Care Team (Late st Contact Info) Description 02/03/2025 8:45 AM EDT Office Visit [facility] Medicine [address] [place] [address] [place] [address] Perico Brothers MD [address], [address] [place] [address] [email or web address] Health Maintenance Due Date Last Done Comments COLOGUARD 2007 FIT TEST 2007 FOBT 2007 SIGMOIDOSCOPY 2007 VIRTUAL COLONOSCOPY 2007 INFLUENZA VACCINE (#1) 2024 , 02/15/2023, 03/06/2022, Additional history exists BLOOD PRESSURE 07/04/2025 01/01/2025 LUNG CANCER SCREENING (LDCT Only) 11/08/2025 11/08/2024, 11/08/2023, 09/24/2023, Additional history exists DEPRESSION SCREENING 01/01/2026 01/01/2025, 01/02/20 25 PNEUMOCOCCAL VACCINES (50+ years) (4 of 4 - PCV20 or PCV21) 05/10/2026 05/10/2021, 04/28/2019, 02/18/2016 SCREENING FOR DIABETES 09/29/2027 09/28/2024, 2024 Adult Td,Tdap Booster 04/23/2028 04/23/2018, 006 COLONOSCOPY 03/26/2029 03/26/2024, 11/2018, 09/29/2013 COLORECTAL CANCER SCREENING 03/26/2029 LIPID PANEL 09/28/2029 09/28/2024, 01/20, 05/11/2020, Additional history exists HEPATITIS C SCREENING Completed 08/18/2013 HIV ONE-TIME SCREENING (18-65 YEARS) Completed 05/06/2018 ZOSTER VACCINES Completed 03/14/2020, 01/10/2020 RSV VACCINE Completed 05/02/2023 COVID-19 VACCINE Completed 02/05/2024, , 03/06/2022, Additional history exists HEPATITIS A VACCINES Aged Out No long er eligible based on patient's age to complete this topic HIB VACCINES Aged Out No longer eligi ble based on patient's age to complete this topic MENINGOCOCCAL VACCINES (ACWY) Aged Out No longer eligible based on patient's age to complete this topic MENINGOCOCCAL VACCINES (B) Aged Out N o longer eligible based on patient's age to complete this topic Medical Devices Implanted Type Area Air Compressor Engineer Device Identifier Shelf Expiration Date Model / Serial / Lot Right Middle Finger Stent Variable 4.8 22-30cm - [id number] Implanted:Qty: 1 on 11/28/2017 by Luís Tapia MD at [facility] [place] 04/05/2018 [id number] / / [id number] Procedures Procedure Name Priority Date/Time Associated Diagnosis Comments CT CHEST LUNG CANCER SCREENING ANNUAL Routine 11/08/2024 9:36 AM EDT Former smoker LIPID PANEL Routine 09/28/2024 7:25 AM EDT ENDOSCOPY, COLON 03/26/2024 7:08 AM EST OUTSIDE HEPATITIS C VIRUS SCREENING Routine 08/18/2013 from Last 3 Months or Most Recently Relevant to Health Maintenance Results * CT CHEST LUNG CANCER SCREENING ANNUAL (11/08/2024 9:36 AM EDT) MGB IMG RECOMMENDATION COMMENT solid nodule; Differential: clinically active cancer lack of growth [facility] Anatomical Region Laterality Modality Chest Computed Tomogra phy 11/13/2024 11:2 7 AM EDT Impressions 11/13/2024 11:50 AM EDT Lung-RADS Category: 2. Multiple pulmonary nodules. The category-determining solid nodule has a very low likelihood of becoming a clinically active cancer, due to size and/or lack of growth. RECOMMENDATIONS: Continue Lung-RADS Annual Lung Cancer Screening Chest CT in 12-14 months if patient meets eligibility criteria. To order, please type CT CHEST SCREENING (CT.TH.CHESTSCRS) and select ANNUAL for patient program status. Explanation of the Lung-RADS categories can be found at: [email or web address] Narrative 11/13/2024 11:[address] CHEST LUNG CANCER SCREENING ANNUAL Referring clinician's provided indication for this examination in [facility]: Lung Cancer Screening - FORMER smoker, quit in past 15 yrs (20+ pk-yrs, age 50-80) - ICD-10 Z87.891 TECHNIQUE: Low dose multidetector CT of the chest was performed without intravenous contrast using tailored dose modulation techniques. COMPARISON: CT CHEST LUNG CANCER SCREENING ANNUAL 2023- FINDINGS: Devices/tubes/lines: None. Lungs/airways: The central airways are patent. Scattered pulmonary nodules measuring up to 3 mm for example (4:170) in the right middle lobe. Bibasilar atelectasis including linear atelectasis at left base. No new or growing nodules. Pleura: No pleural effusions or pneumothoraces. Mediastinum: No thyroid nodules. Heart and pericardium appear normal. Lymph nodes: No supraclavicular, axillary, mediastinal, or hilar lymphadenopathy. Upper abdomen: No abnormality in the partially imaged upper abdomen. Chest wall: No chest wall masses. Bones: No suspicious lytic or blastic lesions. Procedure Note Brandon Solorzano MD, ANASTASIYA - 11/13/2024 CT CHEST LUNG CANCER SCREENING ANNUAL Referring clinician's provided indication for this examination in [facility]:Lung Cancer Screening - FORMER smoker, quit in past 15 yrs (20+ pk-yrs,age 50-80) - ICD-10 Z87.891 TECHNIQUE: Low dose multidetector CT of the chest was performed withoutintravenous contrast using tailored dose modulation techniques. COMPARISON: CT CHEST LUNG CANCER SCREENING ANNUAL FINDINGS: Devices/tubes/lines: None. Lungs/airways: The central airways are patent. Scattered pulmonary nodulesmeasuring up to 3 mm for example (4:170) in the right middle lobe.Bibasilar atelectasis including linear atelectasis at left base. No new orgrowing nodules. Pleura: No pleural effusions or pneumothoraces. Mediastinum: No thyroid nodules. Heart and pericardium appear normal. Lymph nodes: No supraclavicular, axillary, mediastinal, or hilarlymphadenopathy. Upper abdomen: No abnormality in the partially imaged upper abdomen. Chest wall: No chest wall masses. Bones: No suspicious lytic or blastic lesions. IMPRESSION: Lung-RADS Category: 2. Multiple pulmonary nodules. Thecategory-determining solid nodule has a very low likelihood of becoming aclinically active cancer, due to size and/or lack of growth. RECOMMENDATIONS: Continue Lung-RADS Annual Lung Cancer Screening Chest CT in 12-14 monthsif patient meets eligibility criteria. To order, please type CT CHEST SCREENING (CT.TH.CHESTSCRS) and selectANNUAL for patient program status. Explanation of the Lung-RADS categories can be found at:[email or web address] Perico Brothers MD [facility] CT CHEST Final Resu lt * Lipid panel (09/28/2024 7:25 AM EDT) HDL 46 mg/dL [facility] Comment: Interpretation <40 mg/dL: Low HDL cholesterol (major risk factor for CHD) Greater than or equal to 60 mg/dL: High HDL cholesterol ( negative risk factor for CHD) HDL - cholesterol is affected by a number of factors, e.g. smoking, excerise, hormones, sex and age. CHOLESTEROL 190 0 - 240 mg/dL [facility] TRIGLYCERIDES 150 30 - 160 mg/dL [facility] LDL 114 50 - 129 mg/dL [facility] Comment: LDL levels in terms of risk for coronary heart disease: <100 mg/dL: Optimal 100-129 mg/dL: Near or above optimal 130-159 mg/dL: Borderline high 160-189 mg/dL: High >190 mg/dL: Very High CARDIAC RISK RATIO 4.1 3.4 - 5.0 C [facility] Blood 09/28/2024 7:25 AM EDT 09/28/2024 7:32 AM EDT us Starr York MD LAB BLOOD ORDERABLES Final Re sult [facility] Organization Address City/State/ZIP Co de Phone Number [address] [address] * ENDOSCOPY, COLON (03/26/2024 7:08 AM EST) Narrative Transcriptions Duncan Lazo MD - 03/26/2024 7:08 AM EST [facility] Patient Name: Vinay Pearson MD:: DUNCAN LAZO MD, , Procedure Date: 03/26/2024 7:08 AM Date of : 1960 Age: 63 Admit Type: Outpatient Gender: Male Room: Endo Referring MD: PERICO BROTHERS MD Exam Type: Colonoscopy Indications: High risk colon cancer surveillance: Personalhistory of colonic polyps Medications: Monitored Anesthesia Care Procedure: Informed consent was obtained from the patientafter discussion of the indications, limitations, alternatives, benefits, and risks of the procedure. Risks specifically discussed include but are not limited to medication reactions, missed lesions, bleeding, perforation, or the need for emergent surgery. Throughout the procedure, the patient's blood pressure, pulse, end-tidal CO2, and oxygensaturations were monitored continuously. The Olympus adult variable colonoscope CF-MD133U #5 was introduced through the anus and advanced to the cecum, identified by appendiceal orifice andileocecal valve. The colonoscopy was performed without difficulty. The patient tolerated the procedurewell. The quality of the bowel preparation was adequate.The quality of the bowel preparation was evaluatedusing the BBPS (Solomon Bowel Preparation Scale) withscores of: Right Colon = 2 (minor amount of residual staining, small fragments of stool and/or opaque liquid, but mucosa seen well), Transverse Colon = 3 (entire mucosa seen well with no residual staining, small fragments of stool or opaque liquid) and Left Colon = 2 (minor amount of residual staining, small fragments of stool and/or opaque liquid, but mucosa seen well). The total BBPS score equals 7. Thequality of the bowel preparation was fair. Anatomical landmarks were photographed. Complications: No immediate complications. Estimated blood loss: Minimal. Findings: The perianal and digital rectal examinations were normal. A 4 mm polyp was found in the rectum. The polyp was sessile. The polyp was removed with a cold snare. Resection and retrieval were complete. Scattered small and large-mouthed diverticula were found in the sigmoid colon and descending colon. There was evidence of a prior vox-sb-qvswmlsc-colonic anastomosis in the sigmoid colon. This was patentand was characterized by healthy appearing mucosa. Internal hemorrhoids were found duringretroflexion. The hemorrhoids were mild. The exam was otherwise normal throughout theexamined colon. Impression: - Preparation of the colon was fair. - One 4 mm polyp in the rectum, removed with a cold snare. Resected and retrieved. - Moderate diverticulosis in the sigmoid colon andin the descending colon. - Patent end-to-side colo-colonic anastomosis, characterized by healthy appearing mucosa. - Internal hemorrhoids. Recommendation: - Discharge patient to home. - Await pathology results. - Repeat colonoscopy in 5 years for surveillance. DUNCAN LAZO MD, 03/26/2024 8:26:21 AM This report has been signed electronically. Number of Addenda: 0 Note Initiated On: 03/26/2024 7:08 AM Procedure Code(s): --- Professional --- 85975, Colonoscopy, flexible; with removal of tumor(s), polyp(s), or other lesion(s) by snare technique --- Technical --- 11660, Colonoscopy, flexible; with removal of tumor(s), polyp(s), or other lesion(s) by snare technique Diagnosis Code(s): --- Professional --- Z86.010, Personal history of colonic polyps K64.8, Other hemorrhoids D12.8, Benign neoplasm of rectum Z98.0, Intestinal bypass and anastomosis status K57.30, Diverticulosis of large intestine without perforation or abscess without bleeding --- Technical --- Z86.010, Personal history of colonic polyps K64.8, Other hemorrhoids D12.8, Benign neoplasm of rectum Z98.0, Intestinal bypass and anastomosis status K57.30, Diverticulosis of large intestine without perforation or abscess without bleeding CPT copyright 2021 [employer]. All rights reserved. The codes documented in this report are preliminary and upon outpatient coder reviewmay be revised to meet current compliance requirements. Procedure Date: 03/26/2024 7:08:22 AM [address] [place] [address] Perico Brothers MD GI PROCEDURE ORDERABLES Fi nal Result * Outside Hepatitis C Virus Screening (08/18/2013) Hepatitis C Screening - External Neg Historical Provider LAB BLOOD ORDERABLES Helene l Result from Last 3 Months or Most Recently Relevant to Health Maintenance Insurance [place] [employer] [place]REF[employer]ED H[employer] REPLACEMENT MEDICARE PART A & B [facility]REFERRED HMO REPLACEMENT MEDICARE PART A & B [facility] PREFERRED HMO REPLACEMENT MEDICARE PART A & [facility]REFERRED [facility] REPLAC[place] MEDICARE PART A & B [place] [employer] [place]REF[place]ED HMO REPLAC[place] MEDICARE PART A & B [place] [employer] [place]REF[place]ED H[place] REPLACEMENT MEDICARE PART A & [place] [employer] [employer] Advance Directives For more information, please contact: [phone] (9AM - 5PM [place], Sunday-Sunday) * Full Code (Latest Code Status on File) Date Activated Date Inactivated Comments 09/26/2024 8:17 PM Question Answer Comments Code Status Confirmed With: Patient Care Teams Sofa Cover Inspector Relationship Specialty Start Date End Date Perico Brothers MD [address] [place] [address], [address] [place] [address] PCP - General 03/24/17 Additional Source Comments The information contained in this document represents components of the legal health record. It is not the complete legal health record.[facility]
--- OUTSIDE RECORDS SUMMARY | 2025-01-29 11:13 | XMS_ITS | Encounter Summary ---
Author Organization [facility] Address [address] [place] [address] [place] [address] Phone Care Team Providers Care Ruffling Hemmer Automatic Name Role Phone Perico Brothers MD Primary Care Provider [phone] Encounter Details Date Type Department Care Team (Late st Contact Info) Description 10/24/2024 Procedure Pass [facility], Ct Scan - [address] [address] Social History Tobacco Use Types Packs/Day Years [...] high school, GED, job training, learning the Macedonian language, technical skills, or developing parenting skills)? No 12/21/2022 Are you concerned about learning? Not on file 12/21/2022 No 12/21/2022 Yes 12/21/2022 Food Answer Date Recorded Within the past [...] Benefits received from WIC? Not on file 0807/2022 WIC is a free program, interested in [...] Description 02/03/2025 8:45 AM EDT Office Visit [address] [address] Perico Brothers MD 22 [facility], [address] [place] [address] documented as of this encounter Visit Diagnoses Not on filedocumented in this encounter Additional Health Concerns Assessment Noted Time PHQ-9 Depression Total Score: 8 02/01/20 23 9:09 AM EDT PHQ-2 Depression Total Score: 2 12/26/19 24 8:10 AM EDT documented as of this encounter Care Teams Ruffling Hemmer Automatic Relationship Specialty Start Date End Date Perico Brothers MD [address] [place] [address], [address] [place] [address] PCP - General 03/24/17 documented as of this encounter Additional Source Comments The information contained in this document represents components of the legal health record. It is not the complete legal health record.[facility]
--- OUTSIDE RECORDS SUMMARY | 2025-01-29 11:13 | XMS_ITS | Encounter Summary ---
Author Organization [facility] Address [address] [place] [address] Phone Care Team Providers Care Junior Web Designer Name Role Phone Tiffanie Brown MD Unavailable [phone] Michelle Carmona TARGET TRIMMER Unavailable [phone] Eric López MD Unavailable [phone] Adrian Jin MANAGER BALANCE Unavailable [phone] Jhoan Wild MD Unavailable [phone] Perico Brothers MD Primary Care Provider + [phone] Perico Brothers MD Unavailable [phone] Encounter Details Date Type Department Care Team (Late st Contact Info) Description 05/25/2017 Procedure Pass [facility], Ct Scan - [address] [address] Social History Tobacco Use Types Packs/Day Years [...] Description 02/03/2025 8:45 AM EDT Office Visit [facility] [address] [place] [address] Perico Brothers MD 22 [facility], [address] [place] [address] documented as of this encounter Visit Diagnoses Not on filedocumented in this encounter Care Teams Junior Web Designer Relationship Specialty Start Date End Date Perico Brothers MD [address] [place] [address], [address] [place] [address] PCP - General 03/24/17 Tiffanie Brown MD [address] [place] [address] Historical LMR Provider 03/10/17 Michelle Cramona, JOSUE [address] [place] [address] [place] [address] Historical LMR Provider 03/10/17 Eric López MD [address] [place] [address], [address] [place] [address] Historical LMR Provider 03/10/17 05/28/21 Adrian Jin CNP [address] [place] [address] Historical LMR Provider 03/10/17 05/28/21 Jhoan Wild MD [address] [place] [address] Historical LMR Provider 03/10/17 8 Perico Brothers MD [address] [place] [address], [address] [place] [address] [email or web address] Insurance Assigned Provider 08/28/2001/27/23 documented as of this encounter Additional Source Comments The information contained in this document represents components of the legal health record. It is not the complete legal health record.[facility]
--- OUTSIDE RECORDS SUMMARY | 2025-01-29 11:14 | XMS_ITS | Encounter Summary ---
Author Organization [facility] Address [address] [place] [address] [address] [place] [address] Phone Care Team Providers Care Continuous Improvement Lead Name Role Phone Perico Brothers MD Primary Care Provider [phone] Encounter Details Date Type Department Care Team (Late st Contact Info) Description 01/01/2025 Telephone [facility] [address] [place] [address] Perico Brothers MD 22 [facility], [address] [place] [address] [email or web address] Social History Tobacco Use Types Packs/Day Years [...] Description 02/03/2025 8:45 AM EDT Office Visit [facility] [address] [place] [address] Perico Brothers MD 22 [facility], [address] [place] [address] documented as of this encounter Visit Diagnoses Not on filedocumented in this encounter Additional Health Concerns Assessment Noted Time PHQ-9 Depression Total Score: 7 01/02/20 25 11:05 AM EDT PHQ-2 Depression Total Score: 3 01/02/20 25 11:05 AM EDT documented as of this encounter Care Teams Continuous Improvement Lead Relationship Specialty Start Date End Date Perico Brothers MD 22 [facility], [address] [place] [address] [email or web address] PCP - General 03/24/17 documented as of this encounter Additional Source Comments The information contained in this document represents components of the legal health record. It is not the complete legal health record.[facility]
--- OUTSIDE RECORDS SUMMARY | 2025-01-29 11:14 | XMS_ITS | Encounter Summary ---
Author Organization [facility] Address [address] [place] [address] [place] [address] Phone Care Team Providers Care Dragline Engineer Name Role Phone Tiffanie Brown MD Unavailable [phone] Eric López MD Unavailable [phone] Adrian Jin [facility] Unavailable [phone] Perico Brothers MD Primary Care Provider + [phone] Perico Brothers MD Unavailable [phone] Encounter Details Date Type Department Care Team (Late st Contact Info) Description 12/26/2017 Procedure Pass [place] Admitting Dept - Virtual Department [address] [place] [address] Social History Tobacco Use Types Packs/Day Years [...] Encounters Date Type Department Care Team (Late Contact Info) Description 02/03/2025 8:45 AM EDT Office Visit [address] [place] [address] Perico Brothers MD [address] [place] [address], [address] [place] [address] documented as of this encounter Visit Diagnoses Not on filedocumented in this encounter Care Teams Dragline Engineer Relationship Specialty Start Date End Date Perico Brothers MD [address] [place] [address], [address] [place] [address] PCP - General 03/24/17 Tiffanie Brown MD [address] [place] [address], [address] [place] [address] Historical LMR Provider 03/10/17 Eric López MD [address] [place] [address] Historical LMR Provider 03/10/17 05/28/21 Adrian Jin CNP [address] [place] [address], [address] [place] [address] Historical LMR Provider 03/10/17 05/28/21 Perico Brothers MD [address] [place] [address], [address] [place] [address] Insurance Assigned Provider 08/28/2001/27/23 documented as of this encounter Additional Source Comments The information contained in this document represents components of the legal health record. It is not the complete legal health record.[facility]
--- OUTSIDE RECORDS SUMMARY | 2025-01-29 11:14 | XMS_ITS | Clinical Summary ---
Author Organization [facility] Address [address] [place] [address] Phone Care Team Providers Care Flight Engineer Inspector Name Role Phone Perico Brothers MD Primary Care Provider [phone] Social History Tobacco Use Types Packs/Day Years [...] patient's age to complete this topic Insurance [facility] Care Teams Flight Engineer Inspector Relationship Specialty Start Date End Date Perico Brothers MD [address] [address] PCP - General Family Medicine 08/30/17
--- OUTSIDE RECORDS SUMMARY | 2025-01-29 11:14 | XMS_ITS | Encounter Summary ---
Author Organization [facility] Address [address] [place] [address] Phone Care Team Providers Care Medical Records Administrator Name Role Phone Tiffanie Brown MD Unavailable [phone] Eric López MD Unavailable [phone] Adrian Jin [facility] Unavailable [phone] Perico Brothers MD Primary Care Provider + [phone] Perico Brothers MD Unavailable [phone] Encounter Details Date Type Department Care Team (Late st Contact Info) Description 11/01/2017 Ancillary Orders Virtual Department [address] [place] [address] Liborio Demarco MD [address] [place] [address], [address] [address] [email or web address] Calculus of kidney Social History Tobacco Use Types Packs/Day Years [...] Description 02/03/2025 8:45 AM EDT Office Visit [facility] [address] [place] [address] Perico Brothers MD 22 [facility], [address] [place] [address] [email or web address] documented as of this encounter Results * US Kidneys and Bladder (02/12/2018 9:52 AM EDT) Anatomical Region Laterality Modality Abdomen, Kidney Ultrasound 02/12/2018 1:10 PM EDT Impressions 02/12/2018 1:16 PM EDT 1. Nonobstructing 4 mm new stone or fragment of renal pelvic calcification from November in the left lower pole. 2. Chronic non-obstructing stone mid right kidney. 3. No other calculi are apparent on either side. 4. No evidence of significant obstruction. POS [id number] Narrative 02/12/2018 1:16 PM EDT Compare to ultrasound 05/29/[address] 11/24/2017 Normal renal size and contour. Right 12.4 x 4.4 cm. Left 11.6 x 5.6 cm. 4 x 6 mm stone mid right kidney stable or larger than the CT in November.. 4 mm stone or fragment in the left lower pole. No other left intrarenal calcifications. The large stone seen in the left renal pelvis on the November CT is no longer apparent. Minimal pelvocaliectasis on the left similar to the November CT (at which time the ureter was not dilated). No cystic or solid masses. No cortical scarring, signs of pyelonephritis or perinephric fluid collections. Prevoid bladder volume is about 240 cc and the post-void volume 57 cc (24% residual). Both ureteral jets are visible in the distal ureters are not dilated. No generalized bladder wall thickening or focal filling defects. Procedure Note Adama Groves MD - 02/12/2018 Compare to ultrasound 05/29/[address] 11/24/2017 Normal renal size and contour. Right 12.4 x 4.4 cm. Left 11.6 x 5.6 cm. 4 x 6 mm stone mid right kidney stable or larger than the CT in November.. 4 mm stone or fragment in the left lower pole. No other left intrarenalcalcifications. The large stone seen in the left renal pelvis on the NovemberCT is no longer apparent. Minimal pelvocaliectasis on the left similar to the November CT (at which timethe ureter was not dilated). No cystic or solid masses. No cortical scarring, signs of pyelonephritis or perinephric fluidcollections. Prevoid bladder volume is about 240 cc and the post-void volume 57 cc (24%residual). Both ureteral jets are visible in the distal ureters are not dilated. No generalized bladder wall thickening or focal filling defects. IMPRESSION: 1. Nonobstructing 4 mm new stone or fragment of renal pelvic calcificationfrom November in the left lower pole. 2. Chronic non-obstructing stone mid right kidney. 3. No other calculi are apparent on either side. 4. No evidence of significant obstruction. POS [id number] Liborio Demarco MD [facility] RE[facility] Final Result documented in this encounter Visit Diagnoses Diagnosis Calculus of kidney Calculus of kidney documented in this encounter Care Teams Medical Records Administrator Relationship Specialty Start Date End Date Perico Brothers MD [address] [place] [address], [address] [place] [address] PCP - General 03/24/17 Tiffanie Brown MD [address] [place] [address], 2nd [place] [address] Historical LMR Provider 03/10/17 Eric López MD [address] [place] [address], [address] [place] [address] Historical LMR Provider 03/10/17 05/28/21 Adrian Jin CNP [address] [facility], 2nd [place] [address] Historical LMR Provider 03/10/17 05/28/21 Perico Brothers MD 22 [facility], [address] [place] [address] Insurance Assigned Provider 08/28/2001/27/23 documented as of this encounter Additional Source Comments The information contained in this document represents components of the legal health record. It is not the complete legal health record.[facility]
--- OUTSIDE RECORDS SUMMARY | 2025-01-29 11:14 | XMS_ITS | Encounter Summary ---
Author Organization [facility] Address [address] [place] [address] [place] [address] Phone Care Team Providers Care Facilities Maintenance Manager Name Role Phone Tiffanie Brown MD Unavailable [phone] Eric López MD Unavailable [phone] Adrian Jin [facility] Unavailable [phone] Perico Brothers MD Primary Care Provider + [phone] Perico Brothers MD Unavailable [phone] Encounter Details Date Type Department Care Team (Latest Contact Info) Description 10/26/2017 Transcribe Orders [facility] Laboratory [address] [id number] Perico Brothers MD 22 [facility], [address] [place] [address] [email or web address] 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) Social History Tobacco Use Types [...] Description 02/03/2025 8:45 AM EDT Office Visit [address] [address] Perico Brothers MD [address] [place] [address], [address] [place] [address] documented as of this encounter Procedures Procedure Name Priority Date/Time Associated Diagnosis Comments PSA (SCREENING) Routine 10/26/2017 9:57 AM EDT Benign localized hyperplasia of prostate with urinary retention documented in this encounter Results * PSA (screening) (10/26/2017 9:57 AM EDT) PSA 1.69 0 - 4.00 ng/mL [facility] Blood 10/26/2017 9:57 AM EDT 10/26/2017 9:59 AM EDT us Perico Brothers MD LAB BLOOD ORDERABLES Final Result [facility] [address] [place] [address] documented in this encounter Visit Diagnoses Diagnosis Benign localized hyperplasia of prostate with urinary retention- Primary Benign localized hyperplasia of prostate with urinary obstruction and other lower urinary tract symptoms (LUTS) documented in this encounter Care Teams Facilities Maintenance Manager Relationship Specialty Start Date End Date Perico Brothers MD [address] [place] [address], [address] [place] [address] PCP - General 03/24/17 Tiffanie Brown MD 15 [facility], 2nd [place] [address] Historical LMR Provider 03/10/17 Eric López MD 22 [facility], [address] [place] [address] Historical LMR Provider 03/10/17 05/28/21 Adrian Jin CNP 15 [facility], 2nd [place] [address] Historical LMR Provider 03/10/17 05/28/21 Perico Brothers MD 22 [facility], [address] [place] [address] Insurance Assigned Provider 08/28/2001/27/23 documented as of this encounter Additional Source Comments The information contained in this document represents components of the legal health record. It is not the complete legal health record.[facility]
--- OUTSIDE RECORDS SUMMARY | 2025-01-29 11:14 | XMS_ITS | Encounter Summary ---
Author Organization [facility] Address [address] [place] [address] Phone Care Team Providers Care Lotus Notes Administrator Name Role Phone Tiffanie Brown MD Unavailable [phone] Eric López MD Unavailable [phone] Adrian Jin [facility] Unavailable [phone] Perico Brothers MD Primary Care Provider + [phone] Perico Brothers MD Unavailable [phone] Encounter Details Date Type Department Care Team (Latest Contact Info) Description 08/23/2018 Transcribe Orders Virtual Department [address] [place] [address] [place] [address] [address] [email or web address] Calculus of kidney (Primary Dx) Social History Tobacco Use Types [...] Description 02/03/2025 8:45 AM EDT Office Visit [facility] [address] [place] [address] Perico Brothers MD 22 [facility], [address] [place] [address] [email or web address] documented as of this encounter Results * US Kidneys (10/21/2018 8:27 AM EDT) Anatomical Region Laterality Modality Abdomen, Kidney Ultrasound 10/21/2018 10:3 8 AM EDT Impressions 10/21/2018 10:41 AM EDT 1. Nonobstructing 3 mm right renal calculus. 2. No renal calculi on the left. 3. No hydronephrosis. POS - [id number] Narrative 10/21/2018 10:41 AM EDT US KIDNEYS HISTORY: Nephrolithiasis. TECHNIQUE: Grayscale and color Doppler ultrasound imaging of the kidneys. COMPARISON: 11/24/2017 CT. 02/12/2018 ultrasound. FINDINGS: Right kidney: Measures 11.7 x 4.7 cm. Cortical echogenicity is normal. Normal cortical thickness. There is no hydronephrosis. Nonobstructing 3 mm calculus seen right interpolar kidney. Left kidney: Measures 11.7 x 6.0 cm. Cortical echogenicity is normal. Normal cortical thickness. There is no hydronephrosis. There are no shadowing calculi. Procedure Note Michelle Barreto MD - 10/21/2018 US KIDNEYS HISTORY: Nephrolithiasis. TECHNIQUE: Grayscale and color Doppler ultrasound imaging of thekidneys. COMPARISON: 11/24/2017 CT. 02/12/2018 ultrasound. FINDINGS: Right kidney: Measures 11.7 x 4.7 cm. Cortical echogenicity is normal.Normal cortical thickness. There is no hydronephrosis. Nonobstructing 3 mmcalculus seen right interpolar kidney. Left kidney: Measures 11.7 x 6.0 cm. Cortical echogenicity is normal.Normal cortical thickness. There is no hydronephrosis. There are noshadowing calculi. IMPRESSION: 1. Nonobstructing 3 mm right renal calculus. 2. No renal calculi on the left. 3. No hydronephrosis. POS - [id number] Serena MARTINEZ IMG US RENAL Final Resu lt documented in this encounter Visit Diagnoses Diagnosis Calculus of kidney- Primary Calculus of kidney documented in this encounter Additional Health Concerns Assessment Noted Time PHQ-2 Depression Total Score: 0 04/23/20 18 10:22 AM EST documented as of this encounter Care Teams Lotus Notes Administrator Relationship Specialty Start Date End Date Perico Brothers MD [address] [place] [address], [address] [address] PCP - General 03/24/17 Tiffanie Brown MD [address] [place] [address] Historical LMR Provider 03/10/17 Eric López MD [address] [place] [address] Historical LMR Provider 03/10/17 05/28/21 Adrian Jin CNP [address] [place] [address] Historical LMR Provider 03/10/17 05/28/21 Perico Brothers MD [address] [place] [address] [email or web address] Insurance Assigned Provider 08/28/2001/27/23 documented as of this encounter Additional Source Comments The information contained in this document represents components of the legal health record. It is not the complete legal health record.[facility]
--- OUTSIDE RECORDS SUMMARY | 2025-01-29 11:14 | XMS_ITS | Encounter Summary ---
Author Organization [facility] Address [address] [place] [address] Phone Care Team Providers Care Gum Maker Name Role Phone Tiffanie Brown MD Unavailable [phone] Eric López MD Unavailable [phone] Adrian Jin [facility] Unavailable [phone] Perico Brothers MD Primary Care Provider + [phone] Perico Brothers MD Unavailable [phone] Encounter Details Date Type Department Care Team (Latest Contact Info) Description 10/09/2018 Transcribe Orders [facility] [address] [place] [address] Liborio Demarco MD [address] [place] [address], [address] [address] [email or web address] Uric acid nephrolithiasis (Primary Dx) Social History Tobacco Use Types [...] Description 02/03/2025 8:45 AM EDT Office Visit [address] [place] [address] Perico Brothers MD [address] [place] [address], [address] [place] [address] [email or web address] documented as of this encounter Results * PSA (screening) (10/09/2018 8:02 AM EDT) PSA 1.49 0 - 4.00 ng/mL [facility] Blood 10/09/2018 8:02 AM EDT 10/09/2018 2:17 PM EDT us Liborio Demarco MD LAB BLOOD ORDERABLES Final Res ult [facility] [address] [place] [address] documented in this encounter Visit Diagnoses Diagnosis Uric acid nephrolithiasis- Primary documented in this encounter Additional Health Concerns Assessment Noted Time PHQ-2 Depression Total Score: 0 04/23/20 18 10:22 AM EST documented as of this encounter Care Teams Gum Maker Relationship Specialty Start Date End Date Perico Brothers MD [address] [place] [address], [address] [place] [address] [email or web address] PCP - General 03/24/17 Tiffanie Brown MD 15 [facility], 2nd [place] [address] Historical LMR Provider 03/10/17 Eric López MD [address] [place] [address], [address] [place] [address] Historical LMR Provider 03/10/17 05/28/21 Adrian Jin CNP 15 [facility], 2nd [place] [address] [email or web address] Historical LMR Provider 03/10/17 05/28/21 Perico Brothers MD 22 [facility], [address] [place] [address] [email or web address] Insurance Assigned Provider 08/28/2001/27/23 documented as of this encounter Additional Source Comments The information contained in this document represents components of the legal health record. It is not the complete legal health record.[facility]
--- OUTSIDE RECORDS SUMMARY | 2025-01-29 11:14 | XMS_ITS | Encounter Summary ---
Author Organization [facility] Address [address] [place] [address] Phone Care Team Providers Care Decal Transferrer Name Role Phone Tiffanie Brown MD Unavailable [phone] Eric López MD Unavailable [phone] Adrian Jin [facility] Unavailable [phone] Perico Brothers MD Primary Care Provider + [phone] Perico Brothers MD Unavailable [phone] Encounter Details Date Type Department Care Team (Late st Contact Info) Description 02/24/2019 Procedure Pass [facility] Endoscopy Admitting Dept Virtual Department [address] [place] [address] Social History Tobacco Use Types Packs/Day Years Used Date Smoking Tobacco: Former Cigarettes Q uit: 01/28/2019 Smokeless Tobacco: Never Alcohol Use Standard [...] Description 02/03/2025 8:45 AM EDT Office Visit [facility] [address] [place] [address] Perico Brothers MD [address] [place] [address], [address] [place] [address] documented as of this encounter Visit Diagnoses Not on filedocumented in this encounter Additional Health Concerns Assessment Noted Time PHQ-2 Depression Total Score: 0 04/23/20 18 10:22 AM EST documented as of this encounter Care Teams Decal Transferrer Relationship Specialty Start Date End Date Perico Brothers MD [address] [place] [address], [address] [place] [address] PCP - General 03/24/17 Tiffanie Brown MD [address] [place] [address] Historical LMR Provider 03/10/17 Eric López MD [address] [place] [address], [address] [address] Historical LMR Provider 03/10/17 05/28/21 Adrian Jin CNP [address] [place] [address] Historical LMR Provider 03/10/17 05/28/21 Perico Brothers MD [address] [place] [address], [address] [place] [address] Insurance Assigned Provider 08/28/2001/27/23 documented as of this encounter Additional Source Comments The information contained in this document represents components of the legal health record. It is not the complete legal health record.[facility]
--- OUTSIDE RECORDS SUMMARY | 2025-01-29 11:14 | XMS_ITS | Clinical Summary ---
Author Organization [facility] Address [address] [place] [address] Phone Care Team Providers Care Ethanol Quality Leader Name Role Phone Zev Sanchez MD, Timothy Primary Care Provider [phone] Allergies Active Allergy Reactions Criticality Noted Date [...] Date Resolved Date Gross hematuria 06/14/2020 07/16/2022 Immunizations Immunization Administration Dates Next Due Influenza [...] Office Visit [facility] [address] [address] Dav Xavier MD [address] [address] Health Maintenance Due Date Last Done Comments Colorectal Cancer Screening: Annual FOBT 2011 Colorectal Cancer Screening: Colonoscopy 2011 Colorectal Cancer Screening: Sigmoidoscopy 2011 Influenza Vaccine (#1) 2025 4, 02/15/2023, 03/06/2022, Additional history exists Pneumococcal Vaccine: 50+ Years (4 of 4 - PCV20 or PCV21) 05/10/2026 05/10/2021, 04/28/2019, 02/18/2016 Pneumococcal Vaccine: Peds (0 to 5 Years) and At-Risk Patients (6 to 49 Years) Discontinued 05/10/2021, 04/28/2019, 02/18/2016 Hepatitis B Vaccine Aged Out No longe r eligible based on patient's age to complete this topic Insurance Medicaid [place] Medicaid [place] [employer] Care Teams Ethanol Quality Leader Relationship Specialty Start Date End Date Perico Brothers MD [address] [place] [address], [address] [place] [address] PCP - General Family Medicine 02/21/21
--- OUTSIDE RECORDS SUMMARY | 2025-01-29 11:14 | XMS_ITS | Encounter Summary ---
Author Organization [facility] Address [address] [place] [address] [place] [address] Phone Care Team Providers Care Gasoline Catalyst Operator Name Role Phone Tiffanie Brown MD Unavailable [phone] Eric López MD Unavailable [phone] Adrian Jin [facility] Unavailable [phone] Perico Brothers MD Primary Care Provider + [phone] Perico Brothers MD Unavailable [phone] Encounter Details Date Type Department Care Team (Late st Contact Info) Description 09/24/2017 Procedure Pass [facility] Endoscopy Admitting Dept Virtual Department [address] [place] [address] Social History Tobacco Use Types Packs/Day Years [...] Description 02/03/2025 8:45 AM EDT Office Visit [address] [place] [address] Perico Brothers MD [address] [place] [address], [address] [place] [address] documented as of this encounter Visit Diagnoses Not on filedocumented in this encounter Care Teams Gasoline Catalyst Operator Relationship Specialty Start Date End Date Perico Brothers MD [address] [place] [address], [address] [place] [address] PCP - General 03/24/17 Tiffanie Brown MD [address] [place] [address], [address] [place] [address] Historical LMR Provider 03/10/17 Eric López MD [address] [place] [address] Historical LMR Provider 03/10/17 05/28/21 Adrian Jin CNP [address] [place] [address], [address] [place] [address] Historical LMR Provider 03/10/17 05/28/21 Perico Brothers MD [address] [place] [address], [address] [place] [address] Insurance Assigned Provider 08/28/2001/27/23 documented as of this encounter Additional Source Comments The information contained in this document represents components of the legal health record. It is not the complete legal health record.[facility]
--- OUTSIDE RECORDS SUMMARY | 2025-01-29 11:14 | XMS_ITS | Encounter Summary ---
Author Organization [facility] Address [address] [place] [address] Phone Care Team Providers Care Athletics Teacher Name Role Phone Tiffanie Brown MD Unavailable [phone] Eric López MD Unavailable [phone] Adrian Jin [facility] Unavailable [phone] Perico Brothers MD Primary Care Provider + [phone] Perico Brothers MD Unavailable [phone] Encounter Details Date Type Department Care Team (Late st Contact Info) Description 11/01/2017 Ancillary Orders Virtual Department [address] [place] [address] Liborio Demarco MD [address] [place] [address], [address] [address] [email or web address] Calculus of kidney Social History Tobacco Use [...] Description 02/03/2025 8:45 AM EDT Office Visit [facility] [address] [place] [address] Perico Brothers MD [address] [place] [address], [address] [place] [address] [email or web address] documented as of this encounter Results * XR ABDOMEN 1 VIEW (02/12/2018 9:55 AM EDT) Anatomical Region Laterality Modality Abdomen Radiographic Olivia ging 02/12/2018 1:06 PM EDT Impressions 02/12/2018 1:09 PM EDT No abnormal masses or calcifications identified. POS - [id number] Narrative 02/12/2018 1:09 PM EDT EXAM: XR ABDOMEN 1 VIEW COMPARISON: Abdominal CT on November 24, 2017 FINDINGS: Bowel gas pattern is unremarkable. No large intra-abdominal free air seen. Soft tissue outlines appear normal. No abnormal calcifications or lucencies identified. No intra-abdominal masses are seen. Bony structures are intact. Procedure Note Brent Venegas MD - 02/12/2018 EXAM: XR ABDOMEN 1 VIEW COMPARISON: Abdominal CT on November 24, 2017 FINDINGS: Bowel gas pattern is unremarkable. No large intra-abdominal free air seen.Soft tissue outlines appear normal. No abnormal calcifications orlucencies identified. No intra-abdominal masses are seen. Bony structuresare intact. IMPRESSION: No abnormal masses or calcifications identified. POS - [id number] Liborio Demarco MD IMG XR ABDOMEN Final Result documented in this encounter Visit Diagnoses Diagnosis Calculus of kidney Calculus of kidney documented in this encounter Care Teams Athletics Teacher Relationship Specialty Start Date End Date Perico Brothers MD 22 [facility], [address] [place] [address] PCP - General 11/4/17 Tiffanie Brown MD [address] [place] [address] Historical LMR Provider 03/10/17 Eric López MD [address] [place] [address], [address] [place] [address] Historical LMR Provider 03/10/17 05/28/21 Adrian Jin TOOL REPAIR TECHNICIAN [address] [place] [address] Historical LMR Provider 03/10/17 05/28/21 Perico Brothers MD [address] [place] [address], [address] [place] [address] Insurance Assigned Provider 08/28/2001/27/23 documented as of this encounter Additional Source Comments The information contained in this document represents components of the legal health record. It is not the complete legal health record.[facility]
--- OUTSIDE RECORDS SUMMARY | 2025-01-29 11:14 | XMS_ITS | Encounter Summary ---
Author Organization [facility] Address [address] [place] [address] Phone Care Team Providers Care Business Administration Professor Name Role Phone Tiffanie Brown MD Unavailable [phone] Eric López MD Unavailable [phone] Adrian Jin [facility] Unavailable [phone] Perico Brothers MD Primary Care Provider + [phone] Perico Brothers MD Unavailable [phone] Encounter Details Date Type Department Care Team (Late st Contact Info) Description 08/23/2018 Transcribe Orders Virtual Department [address] [place] [address] Serena Sims [place] [address] [phone] [email or web address] Social History Tobacco Use Types Packs/Day Years [...] Description 02/03/2025 8:45 AM EDT Office Visit [facility] [address] [address] Perico Brothers MD 22 [facility], [address] [place] [address] documented as of this encounter Visit Diagnoses Not on filedocumented in this encounter Additional Health Concerns Assessment Noted Time PHQ-2 Depression Total Score: 0 04/23/20 18 10:22 AM EST documented as of this encounter Care Teams Business Administration Professor Relationship Specialty Start Date End Date Perico Brothers MD [address] [place] [address], [address] [address] PCP - General 03/24/17 Tiffanie Brown MD [address] [place] [address], [address] [place] [address] Historical LMR Provider 03/10/17 Eric López MD [address] [place] [address], [address] [address] Historical LMR Provider 03/10/17 05/28/21 Adrian Jin CNP [address] [place] [address], [address] [place] [address] Historical LMR Provider 03/10/17 05/28/21 Perico Brothers MD [address] [place] [address], [address] [place] [address] Insurance Assigned Provider 08/28/2001/27/23 documented as of this encounter Additional Source Comments The information contained in this document represents components of the legal health record. It is not the complete legal health record.[facility]
--- OUTSIDE RECORDS SUMMARY | 2025-01-29 11:14 | XMS_ITS | Encounter Summary ---
Author Organization [facility] Address [address] [place] [address] Phone Care Team Providers Care Senior Software Project Manager Name Role Phone Tiffanie Brown MD Unavailable [phone] Eric López MD Unavailable [phone] Adrian Jin [facility] Unavailable [phone] Perico Brothers MD Primary Care Provider + [phone] Perico Brothers MD Unavailable [phone] Encounter Details Date Type Department Care Team (Latest Contact Info) Description 03/22/2018 Ancillary Orders Virtual Department [address] [place] [address] Duncan Bee MD [address] [place] [address] [email or web address] Dysphagia, pharyngoesophageal phase; GERD without esophagitis Social History Tobacco Use Types Packs/Day Years [...] Description 02/03/2025 8:45 AM EDT Office Visit [facility] [address] [place] [address] Perico Brothers MD 22 [facility], [address] [place] [address] [email or web address] documented as of this encounter Results * FL BARIUM SWALLOW ESOPHAGRAM SINGLE CONTRAST (09/23/2018 8:34 AM EDT) Anatomical Region Laterality Modality Chest Radiographic Olivia ging 09/23/2018 8:57 AM EDT Impressions 09/23/2018 9:01 AM EDT Essentially unremarkable study without significant dysmotility, mechanical obstructing lesion, or gross mucosal pathology. FLUOROSCOPY TIME: 1 min. 2 sec; 78 IMAGES/FRAMES POS - [id number] Narrative 09/23/2018 9:01 AM EDT COMPARISON: 07/09/2017 FINDINGS: A preliminary lateral view of the neck is unremarkable. A standard double contrast study was performed and recorded on digital rapid sequence, spot, and overhead views. Following ingestion of the contrast mixture deglutition was assessed fluoroscopically. The patient would only ingest relatively small aliquots of barium but when allowing for this no aspiration, achalasia, or abnormal propulsive waves were demonstrated. No esophageal mucosal ulceration or stricture were noted. No spontaneous gastroesophageal reflux was demonstrated nor was a hiatal hernia elicited during a prone Valsalva maneuver. Procedure Note Domonique Urbina MD - 09/23/2018 COMPARISON: 07/09/2017 FINDINGS: A preliminary lateral view of the neck is unremarkable. A standard doublecontrast study was performed and recorded on digital rapid sequence, spot,and overhead views. Following ingestion of the contrast mixture deglutition was assessedfluoroscopically. The patient would only ingest relatively small aliquotsof barium but when allowing for this no aspiration, achalasia, or abnormalpropulsive waves were demonstrated. No esophageal mucosal ulceration orstricture were noted. No spontaneous gastroesophageal reflux wasdemonstrated nor was a hiatal hernia elicited during a prone Valsalvamaneuver. IMPRESSION: Essentially unremarkable study without significant dysmotility, mechanicalobstructing lesion, or gross mucosal pathology. FLUOROSCOPY TIME: 1 min. 2 sec; 78 IMAGES/FRAMES POS - [id number] us Duncan Bee MD IMG FL MISC Final Result documented in this encounter Visit Diagnoses Diagnosis Dysphagia, pharyngoesophageal phase GERD without esophagitis Esophageal reflux Dysphagia, pharyngoesophageal phase GERD without esophagitis Esophageal reflux documented in this encounter Care Teams Senior Software Project Manager Relationship Specialty Start Date End Date Perico Brothers MD [address] [place] [address], [address] [place] [address] PCP - General 03/24/17 Tiffanie Brown MD [address] [place] [address], [address] [place] [address] Historical LMR Provider 03/10/17 Eric López MD [address] [place] [address], [address] [address] Historical LMR Provider 03/10/17 05/28/21 Adrian Jin CNP [address] [place] [address], [address] [place] [address] Historical LMR Provider 03/10/17 05/28/21 Perico Brothers MD [address] [place] [address], [address] [place] [address] [email or web address] Insurance Assigned Provider 08/28/2001/27/23 documented as of this encounter Additional Source Comments The information contained in this document represents components of the legal health record. It is not the complete legal health record.[facility]
--- OUTSIDE RECORDS SUMMARY | 2025-01-29 11:14 | XMS_ITS | Encounter Summary ---
Author Organization [facility] Address [address] [place] [address] Care Team Providers Care Outside Plant Technician Name Role Phone Perico Brothers MD Primary Care Provider [phone] Encounter Details Date Type Department Care Team (Late st Contact Info) Description 06/09/2024 Lab Requisition [facility] Main Lab [address] [facility] [employer] [place] [address] Dave Sebastian MD [address] [place] [address] Malignant neoplasm of unspecified renal pelvis (CMS/HCC V24, CMS/HCC V28) Social History Tobacco Use Types Packs/Day Years [...] AM EST) Final Diagnosis A. Urine, Voided, ([id number]): ATYPICAL UROTHELIAL CELLS. Results of UroVysion fluorescence in situ hybridization (FISH) testing: CEP3: Normal CEP7: Normal CEP17: Normal LSI 9p21: Normal Interpretation: Normal profile Controls stained appropriately. Note: The results are intended as a screening device and should be interpreted in association with other clinical and pathological findings. 06/19/2024 4:[address] [facility] Clinical Information C65.9 Malignant neoplasm of unspecified renal pelvis Urine Cytology/FISH (now) 06/19/2024 4:[address] [facility] Gross Description A. Urine, Voided, ([id number]): Received one ThinPrep slide for cytology screen and one ThinPrep slide for UroVysion FISH 06/19/2024 4:[address] [facility] Disclaimer Unless otherwise specified, all tissue is 10% NB formalin fixed and paraffin embedded. Technical pathology services provided by [facility] at [address] [facility] [address], [place] [address] (CLIA #[id number]/Noni Jewell MD, Disc Ruler Operator) 06/19/2024 4:[address] [facility] Tissue Urine specimen from urethra / Unknown 06/02/2024 06/09/2024 11:59 AM EST us Dave Sebastian MD LAB PATHOLOGY ORDERABLES Final Result [facility] [address] [place] [address], documented in this encounter Visit Diagnoses Diagnosis Malignant neoplasm of unspecified renal pelvis (CMS/HCC V24, CMS/HCC V28) documented in this encounter Care Teams Outside Plant Technician Relationship Specialty Start Date End Date Perico Brothers MD [address] [address] PCP - General Family Medicine 08/30/17 documented as of this encounter
--- OUTSIDE RECORDS SUMMARY | 2025-01-29 11:15 | XMS_ITS | Encounter Summary ---
Author Organization [facility] Address [address] [facility] [address] [place] [address] Phone Care Team Providers Care Loan Approver Name Role Phone Zev Sanchez MD, Perico Primary Care Provider [phone] Reason for Visit * Reason Comments Med Refill Encounter Details Date Type Department Care Team (Late Contact Info) Description 09/06/2021 Refill [facility] [address] [facility] [address] [place] [address] Adama Holcomb, DO [address] [place] [address] Social History Tobacco Use Types Packs/Day Years [...] Visit [facility] [address] [address] Dav Xavier MD [address] [address] documented as of this encounter Visit Diagnoses Not on filedocumented in this encounter Care Teams Loan Approver Relationship Specialty Start Date End Date Perico Brothers MD [address] [place] [address], [address] [place] [address] PCP - General Family Medicine 02/21/21 documented as of this encounter
--- OUTSIDE RECORDS SUMMARY | 2025-01-29 11:15 | XMS_ITS | Encounter Summary ---
Author Organization [facility] Address [address] [place] [address] Phone Care Team Providers Care Video Recorder Mechanic Name Role Phone Tiffanie Brown MD Unavailable [phone] Eric López MD Unavailable [phone] Adrian Jin [facility] Unavailable [phone] Perico Brothers MD Primary Care Provider + [phone] Perico Brothers MD Unavailable [phone] Encounter Details Date Type Department Care Team (Late st Contact Info) Description 06/08/2020 Procedure Pass [facility], Ct Scan - [address] [address] Social History Tobacco Use Types Packs/Day Years [...] AM EST documented as of this encounter Functional Status * Calculated C-SSRS Risk Score (Lifetime/Recent) Answer Date of Assessment Author No Risk Indicated 06/08/2020 12:35 PM EST Precious Aceves, RN * Collin Suicide Severity Rating Scale (Screener/Recent Self-Report) Question Answer Date of Assessment Author 1. Wish to be (Past 1 Month) No 021 12:35 PM Precious Whitaker RN 2. Non-Specific Active Suici hector Thoughts (Past 1 Month) No 06/08/2020 12:35 PM Helen Whitaker RN 6. Suicidal Behavior (Lifetime) No 12:35 PM Precious Whitaker RN documented as of this encounter Plan of Treatment Upcoming Encounters Date Type Department Care Team (Late st Contact Info) Description 02/03/2025 8:45 AM EDT Office Visit [address] [address] Perico Brothers MD [address] [place] [address] [email or web address] documented as of this encounter Visit Diagnoses Not on filedocumented in this encounter Additional Health Concerns Assessment Noted Time PHQ-9 Depression Total Score: 7 04/28/20 19 10:33 AM EST PHQ-2 Depression Total Score: 2 05/07/20 20 2:26 PM EST documented as of this encounter Care Teams Video Recorder Mechanic Relationship Specialty Start Date End Date Perico Brothers MD [address] [place] [address], [address] [address] PCP - General 03/24/17 Tiffanie Brown MD [address] [place] [address], [address] [place] [address] Historical LMR Provider 03/10/17 Eric López MD [address] [place] [address], [address] [address] Historical LMR Provider 03/10/17 05/28/21 Adrian Jin CNP [address] [facility], 2nd [place] [address] [email or web address] Historical LMR Provider 03/10/17 05/28/21 Perico Brothers MD 22 [facility], [address] [place] [address] [email or web address] Insurance Assigned Provider 08/28/2001/27/23 documented as of this encounter Additional Source Comments The information contained in this document represents components of the legal health record. It is not the complete legal health record.[facility]
--- OUTSIDE RECORDS SUMMARY | 2025-01-29 11:15 | XMS_ITS | Encounter Summary ---
Author Organization [facility] Address [address] [place] [address] Phone Care Team Providers Care Nba Player Name Role Phone Tiffanie Brown MD Unavailable [phone] Eric López MD Unavailable [phone] Adrian Jin [facility] Unavailable [phone] Perico Brothers MD Primary Care Provider + [phone] Perico Brothers MD Unavailable [phone] Reason for Referral * MRI/CAT Scan - Closed Specialty Diagnoses / Procedures Referred By Tamie galindo Referred To Contact Radiology Diagnoses Kidney stone Procedures CT Abdomen/Pelvis Liborio Demarco MD Phone: tel: fax: [email or web address] Referral ID Status Reason Start Date Expiration Date Visits Re quested Visits Authorized [id number] Closed 08/10/2017 10/09/2017 1 1 Encounter Details Date Type Department Care Team (Late st Contact Info) Description 08/17/2017 Ancillary Orders [facility] Department [address] [place] [address] Liborio Demarco MD [facility], [address] [place], [place] [id number] [email or web address] Kidney stone Social History Tobacco Use Types Packs/Day Years [...] Description 02/03/2025 8:45 AM EDT Office Visit [facility] Medicine [address] [place] [address] [place] [address] Perico Brothers MD [address] [facility], [address] [place] [address] [email or web address] documented as of this encounter Results * CT ABDOMEN/PELVIS WITHOUT CONTRAST (08/27/2017 11:33 AM EDT) Anatomical Region Laterality Modality Abdomen, Pelvis Computed Tomogra phy 08/27/2017 11:4 8 AM EDT Impressions 08/27/2017 11:55 AM EDT Large calculus in the left renal pelvis measuring 11 mm in diameter. Small cortical medullary calculus in the mid right kidney measuring 3 mm in diameter. No hydronephrosis or upper urinary tract mass lesion is seen. TOTAL CTDIvol: 14.30 mGy S/S: Bilateral flank pain, bilateral nephrolithiasis POS - [id number] Narrative 08/27/2017 11:55 AM EDT COMPARISON: CT abdomen pelvis June 02, 2008 TECHNIQUE: Unenhanced imaging is obtained from the dome of the liver to the symphysis pubis. Sagittal and coronal reformats generated. Automated exposure control utilized. FINDINGS: The extreme lung bases are clear. No significant pleural fluid is seen. There is an 11 mm in diameter calculus in the left renal pelvis. A 3 mm calculus is evident at the corticomedullary junction of the mid right kidney. No significant hydronephrosis or hydroureter is seen. No ureteral or bladder calculi are seen. There is a calcification in the prostate gland. The visualized portions of the liver are unremarkable. No focal findings concern are seen. No bile duct dilatation is noted. The visualized portions of the spleen is unremarkable. The pancreas appears normal. No adrenal masses are seen. No periaortic lymphadenopathy is evident. There is a moderate amount of stool the colon particularly the proximal sigmoid colon. Minor scattered diverticula are present. The appendix appears normal. There are minimal degenerative changes in the lumbar spine. Procedure Note Hi Odonnell MD - 08/27/2017 COMPARISON: CT abdomen pelvis June 02, 2008 TECHNIQUE: Unenhanced imaging is obtained from the dome of the liver tothe symphysis pubis. Sagittal and coronal reformats generated. Automated exposure control utilized. FINDINGS: The extreme lung bases are clear. No significant pleural fluid is seen. There is an 11 mm in diameter calculus in the left renal pelvis. A 3 mm calculus is evident at the corticomedullary junction of the midright kidney. No significant hydronephrosis or hydroureter is seen. Noureteral or bladder calculi are seen. There is a calcification in theprostate gland. The visualized portions of the liver are unremarkable. No focal findingsconcern are seen. No bile duct dilatation is noted. The visualized portions of the spleen is unremarkable. The pancreasappears normal. No adrenal masses are seen. No periaortic lymphadenopathy is evident. There is a moderate amount of stool the colon particularly the proximalsigmoid colon. Minor scattered diverticula are present. The appendixappears normal. There are minimal degenerative changes in the lumbar spine. IMPRESSION: Large calculus in the left renal pelvis measuring 11 mm in diameter. Smallcortical medullary calculus in the mid right kidney measuring 3 mm indiameter. No hydronephrosis or upper urinary tract mass lesion is seen. TOTAL CTDIvol: 14.30 mGy S/S: Bilateral flank pain, bilateral nephrolithiasis POS - [id number] us Liborio Demarco MD IMG CT ABD/PELVIS Final Result documented in this encounter Visit Diagnoses Diagnosis Kidney stone Calculus of kidney Kidney stone Calculus of kidney documented in this encounter Care Teams Nba Player Relationship Specialty Start Date End Date Perico Brothers MD [address] [place] [address], [address] [place] [address] PCP - General 03/24/17 Tiffanie Brown MD [address] [place] [address] Historical LMR Provider 03/10/17 Eric López MD [address] [place] [address], [address] [place] [address] Historical LMR Provider 03/10/17 05/28/21 Adrian Jin, SPUN PASTE MACHINE OPERATOR [address] [place] [address] Historical LMR Provider 03/10/17 05/28/21 Perico Brothers MD [address] [place] [address], [address] [place] [address] Insurance Assigned Provider 08/28/2001/27/23 documented as of this encounter Additional Source Comments The information contained in this document represents components of the legal health record. It is not the complete legal health record.[facility]
--- OUTSIDE RECORDS SUMMARY | 2025-01-29 11:15 | XMS_ITS | Encounter Summary ---
Author Organization [facility] Address [address] [place] [address] [place] [address] Phone Care Team Providers Care Granite Polisher Machine Name Role Phone Perico Brothers MD Primary Care Provider [phone] Encounter Details Date Type Department Care Team (Late st Contact Info) Description 03/26/2024 Procedure Pass [facility] Admitting Dept Virtual Department [address] [place] [address] Social History Tobacco Use Types Packs/Day Years [...] high school, GED, job training, learning the Sammarinese language, technical skills, or developing parenting skills)? No 12/21/2022 Are you concerned about learning? Not on file 12/21/2022 No 12/21/2022 Yes 12/21/2022 Food Answer Date Recorded Within the past 6 months we worried whether our food would run out before we got money to buy more. Often True 12/21/2022 Within the past 6 months the food we bought just didn't last and we didn't have enough money to get more. Often True Residential Stability Answer Date Recor ded What is your housing situation today? I have dunia jones 12/21/2022 How many times have you move d in the past 12 months? Zero (I did not move) 12/21/2022 Paying for Meds Answer Date Recorded Do you have trouble paying for medicines? No 12/21/2022 Paying Utility Bills Answer Date Record ed Do you have trouble paying your heating or elect ricity bill? Yes 12/21/2022 Transportation Answer Date Recorded Has the lack of transportati on kept you from medical appointments or from getting medications? Yes 12/21/2022 Unemployment Answer Date Recorded Are you currently unemployed or working on a part-time or temporary basis, and looking for work? I choose not to answer 05/10/2021 Digital Access Answer Date Recorded No 12/21/2022 Yes 12/21/2022 Do you have reliable internet access at home? Ye s 12/21/2022 Do you have a device (e.g., phone, tablet, computer) with a working camera? Yes 12/21/2022 SNAP & WIC Answer Date Recorded Do [...] as food, clothing, or medical care? No 03/26/2024 In the past 12 months have y ou been in a relationship with a person who hurts, threatens, or tries to control you? No 03/26/2024 Are you denied basic needs s uch as food, clothing, or medical care? No 03/26/2024 In the past 12 months have y ou been in a relationship with a person who hurts, threatens, or tries to control you? No 03/26/2024 Sex and Gender Information Value Date Recorded Sex Assigned at Male 05/28/2017 9:38 AM EST Legal Sex Male 9:45 PM EDT Gender Identity Male 05/28/2017 9:38 AM EST Sexual Orientation Straight 05/28/2017 9: 38 AM EST documented as of this encounter Plan of Treatment Upcoming Encounters Date Type Department Care Team (Late st Contact Info) Description 02/03/2025 8:45 AM EDT Office Visit [address] [address] Perico Brothers MD 22 [facility], [address] [place] [address] [email or web address] documented as of this encounter Visit Diagnoses Not on filedocumented in this encounter Additional Health Concerns Assessment Noted Time PHQ-9 Depression Total Score: 8 02/01/20 23 9:09 AM EDT PHQ-2 Depression Total Score: 2 12/26/19 24 8:10 AM EDT documented as of this encounter Care Teams Granite Polisher Machine Relationship Specialty Start Date End Date Perico Brothers MD [address] [place] [address], [address] [place] [address] [email or web address] PCP - General 03/24/17 documented as of this encounter Additional Source Comments The information contained in this document represents components of the legal health record. It is not the complete legal health record.[facility]
--- OUTSIDE RECORDS SUMMARY | 2025-01-29 11:15 | XMS_ITS | Encounter Summary ---
Author Organization [facility] Address [address] [facility] [address] [place] [address] Phone Care Team Providers Care Paraoptometric Name Role Phone Zev Sanchez MD, Perico Primary Care Provider [phone] Encounter Details Date Type Department Care Team (Late st Contact Info) Description 11/09/2021 Telephone [facility] [address] [facility] [address] [place] [address] Adama Holcomb, DO [address] [place] [address] Social History Tobacco Use Types Packs/Day Years [...] Visit [facility] [address] [facility] [address] [place] [address] Dav Xavier MD [address] [facility] [address] [place] [address] documented as of this encounter Visit Diagnoses Not on filedocumented in this encounter Care Teams Paraoptometric Relationship Specialty Start Date End Date Perico Brothers MD [address] [place] [address], [address] [place] [address] PCP - General Family Medicine 02/21/21 documented as of this encounter
--- OUTSIDE RECORDS SUMMARY | 2025-01-29 11:15 | XMS_ITS | Encounter Summary ---
Author Organization [facility] Address [address] [place] [address] Phone Care Team Providers Care Senior Climate Advisor Name Role Phone Tiffanie Brown MD Unavailable [phone] Eric López MD Unavailable [phone] Adrian Jin [facility] Unavailable [phone] Perico Brothers MD Primary Care Provider + [phone] Perico Brothers MD Unavailable [phone] Encounter Details Date Type Department Care Team (Late st Contact Info) Description 06/08/2020 Procedure Pass [facility], Ct Scan - [address] [address] Social History Tobacco Use Types Packs/Day Years [...] 12:35 PM EST Precious Aceves, RN * [place] Suicide Severity Rating Scale (Screener/Recent Self-Report) Question [...] Description 02/03/2025 8:45 AM EDT Office Visit [address] [address] Perico Brothers MD [address] [place] [address] [email or web address] documented as of this encounter Visit Diagnoses Not on filedocumented in this encounter Additional Health Concerns Assessment Noted Time PHQ-9 Depression Total Score: 7 04/28/20 19 10:33 AM EST PHQ-2 Depression Total Score: 2 05/07/20 20 2:26 PM EST documented as of this encounter Care Teams Senior Climate Advisor Relationship Specialty Start Date End Date Perico Brothers MD [address] [place] [address], [address] [address] PCP - General 03/24/17 Tiffanie Brown MD [address] [place] [address], 2nd [place] [address] Historical LMR Provider 03/10/17 Eric López MD [address] [place] [address], [address] [address] Historical LMR Provider 03/10/17 05/28/21 Adrian Jin CNP [address] [facility], 2nd [place] [address] [email or web address] Historical LMR Provider 03/10/17 05/28/21 Perico Brothers MD [address] [facility], [address] [place] [address] [email or web address] Insurance Assigned Provider 08/28/2001/27/23 documented as of this encounter Additional Source Comments The information contained in this document represents components of the legal health record. It is not the complete legal health record.[facility]
--- OUTSIDE RECORDS SUMMARY | 2025-01-29 11:15 | XMS_ITS | Encounter Summary ---
Author Organization [facility] Address [address] [place] [address] [place] [address] Phone Care Team Providers Care Policeman Name Role Phone Tiffanie Brown MD Unavailable [phone] Eric López MD Unavailable [phone] Adrian Jin [facility] Unavailable [phone] Perico Brothers MD Primary Care Provider + [phone] Perico Brothers MD Unavailable [phone] Encounter Details Date Type Department Care Team (Late st Contact Info) Description 11/24/2017 Procedure Pass [facility], Ct Scan - [address] [address] Social History Tobacco Use Types Packs/Day Years [...] Description 02/03/2025 8:45 AM EDT Office Visit [address] [place] [address] Perico Brothers MD [address] [place] [address] [address] [place] [address] documented as of this encounter Visit Diagnoses Not on filedocumented in this encounter Care Teams Policeman Relationship Specialty Start Date End Date Perico Brothers MD [address] [place] [address], [address] [place] [address] PCP - General 03/24/17 Tiffanie Brown MD [address] [place] [address], [address] [place] [address] Historical LMR Provider 03/10/17 Eric López MD [address] [place] [address] Historical LMR Provider 03/10/17 05/28/21 Adrian Jin CNP [address] [place] [address], [address] [place] [address] Historical LMR Provider 03/10/17 05/28/21 Perico Brothers MD [address] [place] [address], [address] [place] [address] Insurance Assigned Provider 08/28/2001/27/23 documented as of this encounter Additional Source Comments The information contained in this document represents components of the legal health record. It is not the complete legal health record.[facility]
--- OUTSIDE RECORDS SUMMARY | 2025-01-29 11:15 | XMS_ITS | Encounter Summary ---
Author Organization [facility] Address [address] [place] [address] [place] [address] Phone Care Team Providers Care Back Tender Fourdrinier Name Role Phone Tiffanie Brown MD Unavailable [phone] Eric López MD Unavailable [phone] Adrian Jin [facility] Unavailable [phone] Perico Brothers MD Primary Care Provider + [phone] Perico Brothers MD Unavailable [phone] Encounter Details Date Type Department Care Team (Late st Contact Info) Description 08/19/2020 Ancillary Orders Virtual Department [address] [place] [address] Dave Sebastian MD [address] [place] [address] Malignant neoplasm of left renal pelvis Social History Tobacco Use Types Packs/Day Years [...] to work, study, or receive health care? I choose not to answer 06/14/2020 Education Answer Date Recorded Are you interested in help w ith more adult education (for example, completing high school, GED, job training, learning the Somali language, technical skills, or developing parenting skills)? I choose not to answer 06/14/2020 Food Answer Date Recorded Within the past 6 months we worried whether our food would run out before we got money to buy more. I choose not to answer 06/14/2020 Within the past 6 months the food we bought just didn't last and we didn't have enough money to get more. I choose not to answer 06/14/2020 Paying for Meds Answer Date Recorded Do you have trouble paying for medicines? I lorraine se not to answer 06/14/2020 Paying Utility Bills Answer Date Record ed Do you have trouble paying y our heating or electricity bill? I choose not to answer 06/14/2020 Transportation Answer Date Recorded Has the lack of transportati on kept you from medical appointments or from getting medications? I choose not to answer 06/14/2020 Sex and Gender Information Value Date Recorded Sex Assigned at Male 05/28/2017 9:38 AM EST Legal Sex Male 9:45 PM EDT Gender Identity Male 05/28/2017 9:38 AM EST Sexual Orientation Straight 05/28/2017 9: 38 AM EST documented as of this encounter Plan of Treatment Upcoming Encounters Date Type Department Care Team (Late st Contact Info) Description 02/03/2025 8:45 AM EDT Office Visit [facility] [address] [place] [address] [place] [address] Perico Brothers MD [address] [place] [address], [address] [place] [address] [email or web address] documented as of this encounter Results * XR CHEST PA AND LATERAL 2 VIEWS (08/23/2020 8:47 AM EDT) Anatomical Region Laterality Modality Chest Computed Radiogr aphy 08/23/2020 8:57 AM EDT Impressions 08/23/2020 9:00 AM EDT No acute pathology or signs of metastatic disease. POS [id number] Narrative 08/23/2020 9:00 AM EDT PA and lateral chest, 2 views Compare 06/06/2008. No pulmonary nodules or masses are apparent. No infiltrate or interstitial disease. No pleural effusion. Normal heart and mediastinal contour. No worrisome bony abnormalities. Procedure Note Adama Groves MD - 08/23/2020 PA and lateral chest, 2 views Compare 06/06/2008. No pulmonary nodules or masses are apparent. No infiltrate or interstitial disease. No pleural effusion. Normal heart and mediastinal contour. No worrisome bony abnormalities. IMPRESSION: No acute pathology or signs of metastatic disease. 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 documented in this encounter Additional Health Concerns Assessment Noted Time PHQ-9 Depression Total Score: 7 04/28/20 19 10:33 AM EST PHQ-2 Depression Total Score: 2 05/07/20 20 2:26 PM EST documented as of this encounter Care Teams Back Tender Fourdrinier Relationship Specialty Start Date End Date Perico Brothers MD [address] [place] [address] PCP - General 03/24/17 Tiffanie Brown MD [address] [place] [address] [email or web address] Historical LMR Provider 03/10/17 Eric López MD [address] [place] [address] Historical LMR Provider 03/10/17 05/28/21 Adrian Jin, NIELS [address] [place] [address] Historical LMR Provider 03/10/17 05/28/21 Perico Brothers MD [address] [place] [address], [address] [place] [address] [email or web address] Insurance Assigned Provider 08/28/2001/27/23 documented as of this encounter Additional Source Comments The information contained in this document represents components of the legal health record. It is not the complete legal health record.[facility]
--- OUTSIDE RECORDS SUMMARY | 2025-01-29 11:15 | XMS_ITS | Encounter Summary ---
Author Organization [facility] Address [address] [place] [address] Phone Care Team Providers Care Training Designer Name Role Phone Tiffanie Brown MD Unavailable [phone] Eric López MD Unavailable [phone] Adrian Jin [facility] Unavailable [phone] Perico Brothers MD Primary Care Provider + [phone] Perico Brothers MD Unavailable [phone] Encounter Details Date Type Department Care Team (Late st Contact Info) Description 04/06/2020 Procedure Pass [facility], Ct Scan - [address] [address] Social History Tobacco Use Types Packs/Day Years [...] Description 02/03/2025 8:45 AM EDT Office Visit [facility] Medicine [address] [place] [address] Perico Brothers MD [address] [place] [address], [address] [place] [address] documented as of this encounter Visit Diagnoses Not on filedocumented in this encounter Additional Health Concerns Assessment Noted Time PHQ-9 Depression Total Score: 7 04/28/20 19 10:33 AM EST PHQ-2 Depression Total Score: 4 04/28/20 19 10:33 AM EST documented as of this encounter Care Teams Training Designer Relationship Specialty Start Date End Date Perico Brothers MD [address] [place] [address] PCP - General 03/24/17 Tiffanie Brown MD [address] [place] [address] Historical LMR Provider 03/10/17 Eric López MD [address] [place] [address] Historical LMR Provider 03/10/17 05/28/21 Adrian Jin CNP [address] [place] [address] Historical LMR Provider 03/10/17 05/28/21 Perico Brothers MD [address] [place] [address] Insurance Assigned Provider 08/28/2001/27/23 documented as of this encounter Additional Source Comments The information contained in this document represents components of the legal health record. It is not the complete legal health record.[facility]
--- OUTSIDE RECORDS SUMMARY | 2025-01-29 11:15 | XMS_ITS | Encounter Summary ---
Author Organization [facility] Address [address] [place] [address] [place] [address] Phone Care Team Providers Care Button Buttonhole Marker Name Role Phone Tiffanie Brown MD Unavailable [phone] Eric López MD Unavailable [phone] Adrian Jin [facility] Unavailable [phone] Perico Brothers MD Primary Care Provider + [phone] Perico Brothers MD Unavailable [phone] Encounter Details Date Type Department Care Team (Late st Contact Info) Description 08/19/2020 Ancillary Orders Virtual Department [address] [place] [address] Dave Sebastian MD [address] [place] [phone] Malignant neoplasm of left renal pelvis [...] high school, GED, job training, learning the [place] language, technical skills, or developing parenting skills)? [...] Description 02/03/2025 8:45 AM EDT Office Visit [facility] [address] [place] [address] Perico Brothers MD [address] [place] [address], [address] [place] [address] [email or web address] documented as of this encounter Visit Diagnoses Diagnosis Malignant neoplasm of left renal pelvis documented in this encounter Additional Health Concerns Assessment Noted Time PHQ-9 Depression Total Score: 7 04/28/20 19 10:33 AM EST PHQ-2 Depression Total Score: 2 05/07/20 20 2:26 PM EST documented as of this encounter Care Teams Button Buttonhole Marker Relationship Specialty Start Date End Date Perico Brothers MD [address] [place] [address], [address] [place] [address] PCP - General 03/24/17 Tiffanie Brown MD [address] [place] [address] Historical LMR Provider 03/10/17 Eric López MD [address] [place] [address], [address] [place] [address] Historical LMR Provider 03/10/17 05/28/21 Adrian Jin [employer] [address] [place] [address] Historical LMR Provider 03/10/17 05/28/21 Perico Brothers MD [address] [place] [address], [address] [place] [address] Insurance Assigned Provider 08/28/2001/27/23 documented as of this encounter Additional Source Comments The information contained in this document represents components of the legal health record. It is not the complete legal health record.[facility]
--- OUTSIDE RECORDS SUMMARY | 2025-01-29 11:15 | XMS_ITS | Encounter Summary ---
Author Organization [facility] Address [address] [place] [address] [place] [address] Phone Care Team Providers Care Shipping Point Inspector Name Role Phone Perico Brothers MD Primary Care Provider [phone] Encounter Details Date Type Department Care Team (Late st Contact Info) Description 10/16/2023 Procedure Pass [facility], Ct Scan - [address] [address] Social History Tobacco Use Types Packs/Day Years [...] high school, GED, job training, learning the Senegalese language, technical skills, or developing parenting skills)? [...] in WIC? Not on file 0 12/21/2022 Sex and Gender Information Value Date Recorded Sex Assigned at Male 05/28/2017 9:38 AM EST Legal Sex Male 9:45 PM EDT Gender Identity Male 05/28/2017 9:38 AM EST Sexual Orientation Straight 05/28/2017 9: 38 AM EST documented as of this encounter Plan of Treatment Upcoming Encounters Date Type Department Care Team (Late st Contact Info) Description 02/03/2025 8:45 AM EDT Office Visit [facility] [address] [place] [address] Perico Brothers MD [address] [facility], [address] [place] [address] [email or web address] documented as of this encounter Visit Diagnoses Not on filedocumented in this encounter Additional Health Concerns Assessment Noted Time PHQ-9 Depression Total Score: 8 02/01/20 23 9:09 AM EDT PHQ-2 Depression Total Score: 2 02/01/20 23 9:09 AM EDT documented as of this encounter Care Teams Shipping Point Inspector Relationship Specialty Start Date End Date Perico Brothers MD [address] [place] [address], [address] [place] [address] [email or web address] PCP - General 03/24/17 documented as of this encounter Additional Source Comments The information contained in this document represents components of the legal health record. It is not the complete legal health record.[facility]
--- OUTSIDE RECORDS SUMMARY | 2025-01-29 11:15 | XMS_ITS | Encounter Summary ---
Author Organization [facility] Address [address] [place] [address] [place] [address] Phone Care Team Providers Care Coal Tower Operator Name Role Phone Tiffanie Brown MD Unavailable [phone] Eric López MD Unavailable [phone] Adrian Jin [facility] Unavailable [phone] Perico Brothers MD Primary Care Provider + [phone] Perico Brothers MD Unavailable [phone] Encounter Details Date Type Department Care Team (Late st Contact Info) Description 08/17/2017 Procedure Pass [facility], Ct Scan - [address] [address] Social History Tobacco Use Types Packs/Day Years [...] Description 02/03/2025 8:45 AM EDT Office Visit [address] [place] [address] Perico Brothers MD [address] [place] [address] [address] [place] [address] documented as of this encounter Visit Diagnoses Not on filedocumented in this encounter Care Teams Coal Tower Operator Relationship Specialty Start Date End Date Perico Brothers MD [address] [place] [address], [address] [place] [address] PCP - General 03/24/17 Tiffanie Brown MD [address] [place] [address], [address] [place] [address] Historical LMR Provider 03/10/17 Eric López MD [address] [place] [address] Historical LMR Provider 03/10/17 05/28/21 Adrian Jin CNP [address] [place] [address], [address] [place] [address] Historical LMR Provider 03/10/17 05/28/21 Perico Brothers MD [address] [place] [address], [address] [place] [address] Insurance Assigned Provider 08/28/2001/27/23 documented as of this encounter Additional Source Comments The information contained in this document represents components of the legal health record. It is not the complete legal health record.[facility]
--- OUTSIDE RECORDS SUMMARY | 2025-01-29 11:15 | XMS_ITS | Encounter Summary ---
Author Organization [facility] Address [address] [place] [address] [place] [address] Phone Care Team Providers Care Manager Intel Name Role Phone Tiffanie Brown MD Unavailable [phone] Eric López MD Unavailable [phone] Adrian Jin [facility] Unavailable [phone] Perico Brothers MD Primary Care Provider + [phone] Perico Brothers MD Unavailable [phone] Encounter Details Date Type Department Care Team (Late st Contact Info) Description 11/28/2017 Procedure Pass [place] Admitting Dept - Virtual Department [address] [place] [address] Social History Tobacco Use Types Packs/Day Years [...] Description 02/03/2025 8:45 AM EDT Office Visit [address] [place] [address] Perico Brothers MD [address] [place] [address], [address] [place] [address] documented as of this encounter Visit Diagnoses Not on filedocumented in this encounter Care Teams Manager Intel Relationship Specialty Start Date End Date Perico Brothers MD [address] [place] [address], [address] [place] [address] PCP - General 03/24/17 Tiffanie Brown MD [address] [place] [address], [address] [place] [address] Historical LMR Provider 03/10/17 Eric López MD [address] [place] [address] Historical LMR Provider 03/10/17 05/28/21 Adrian Jin CNP [address] [place] [address], [address] [place] [address] Historical LMR Provider 03/10/17 05/28/21 Perico Brothers MD [address] [place] [address], [address] [place] [address] Insurance Assigned Provider 08/28/2001/27/23 documented as of this encounter Additional Source Comments The information contained in this document represents components of the legal health record. It is not the complete legal health record.[facility]
--- OUTSIDE RECORDS SUMMARY | 2025-01-29 11:15 | XMS_ITS | Encounter Summary ---
Author Organization [facility] Address [address] [place] [address] Phone Care Team Providers Care Forms Analyst Name Role Phone Perico Brothers MD Primary Care Provider [phone] Perico Brothers MD Unavailable [phone] Encounter Details Date Type Department Care Team (Latest Contact Info) Description 08/05/2021 Transcribe Orders Virtual Department [address] [place] [address] Lulu Dias, EVENTS DIRECTOR [address] [place] [address] [email or web address] Calculus of kidney (Primary Dx) Social History [...] GED, job training, learning the [place] language, technical skills, or developing parenting skills)? [...] Description 02/03/2025 8:45 AM EDT Office Visit [facility] [address] [place] [address] [place] [address] Perico Brothers MD [address] [facility], [address] [place] [address] [email or web address] documented as of this encounter Visit Diagnoses Diagnosis Calculus of kidney- Primary documented in this encounter Additional Health Concerns Assessment Noted Time PHQ-9 Depression Total Score: 5 06/03/19 10:09 AM EST PHQ-2 Depression Total Score: 2 07/20/19 10:41 AM EST documented as of this encounter Care Teams Forms Analyst Relationship Specialty Start Date End Date Perico Brothers MD [address] [place] [address], [address] [place] [address] [email or web address] PCP - General 03/24/17 Perico Brothers MD [address] [place] [address], [address] [place] [address] [email or web address] Insurance Assigned Provider 08/28/2001/27/23 documented as of this encounter Additional Source Comments The information contained in this document represents components of the legal health record. It is not the complete legal health record.[facility]
== END 2025-01-29 10:17 | disposition home or self-care (01) ==
LOC: HO.PMC 09:36
PROVIDERS: PCP Family Medicine; Visit Provider Nurse Practitioner Family
DX: M75.102 Unspecified rotator cuff tear or rupture of left shoulder, not specified as traumatic (principal); M25.512 Pain in left shoulder; M75.82 Other shoulder lesions, left shoulder; M23.91 Unspecified internal derangement of right knee; M25.561 Pain in right knee; M25.562 Pain in left knee; M17.0 Bilateral primary osteoarthritis of knee
CPT/HCPCS: 99204

== ENCOUNTER → 2025-03-13 07:33 | Outpatient (BNV) | payer OTHER, MEDICAID, SELFPAY | PROVIDERS: PCP Family Medicine; Visit Provider Radiology Diagnostic Ultrasound | DX: M67.814 Other specified disorders of tendon, left shoulder (principal); M19.012 Primary osteoarthritis, left shoulder | CPT/HCPCS: 73221 ==

== ENCOUNTER 2025-03-13 07:34 | Outpatient (REF) | payer OTHER, MEDICAID, SELFPAY ==
--- NOTE | ~2025-03-13 | MR_ITS ---
EXAMINATION: MR SHOULDER WITHOUT CONTRAST, LEFT CLINICAL INFORMATION: Rotator cuff tear COMPARISON: None available. TECHNIQUE: MRI of the shoulder without contrast was performed on a high-field scanner. FINDINGS: ROTATOR CUFF: Supraspinatus: Mild-moderate tendinosis Infraspinatus: Intact Teres minor: Intact Subscapularis: Moderate tendinosis. No muscle atrophy or fatty infiltration. BICEPS: Intact CORACOACROMIAL ARCH: The undersurface of the acromion is mildly curved with no subacromial spur. Mild acromioclavicular arthritis. LABRUM/CAPSULE: No displaced labral tear is seen. GLENOHUMERAL JOINT/MARROW: No fracture. No significant joint effusion. No aggressive marrow replacing lesion. Subcentimeter left axillary lymph node. Mild edema in the posterior deltoid muscle, likely strain. MR/MR shoulder LT wo con IMPRESSION: * Mild-moderate supraspinatus tendinosis. Moderate subscapularis tendinosis. No transverse tendon tear or retraction. * Mild acromioclavicular arthritis. * Mild posterior deltoid muscle edema, likely strain. Electronically signed by: Marcus Luna MD 03/13/2025 09:09 AM EDT
--- OUTSIDE RECORDS SUMMARY | 2025-03-13 07:39 | XMS_ITS | Encounter Summary ---
Author Organization [facility] Address [address] [place] [address] Care Team Providers Care Elevator Worker Name Role Phone Perico Brothers MD Primary Care Provider Encounter Details Date Type Department Care Team (Late st Contact Info) Description 06/09/2024 Lab Requisition [facility] [address] [facility] [employer] [place] [address] Dave Sebastian MD [address] [place] [address] Malignant neoplasm of unspecified renal [...] AM EST) Final Diagnosis A. Urine, Voided, ([id number]): ATYPICAL UROTHELIAL CELLS. Results of UroVysion fluorescence in situ hybridization (FISH) testing: CEP3: Normal CEP7: Normal CEP17: Normal LSI 9p21: Normal Interpretation: Normal profile Controls stained appropriately. Note: The results are intended as a screening device and should be interpreted in association with other clinical and pathological findings. 06/19/2024 4:28 PM [facility] Clinical Information C65.9 Malignant neoplasm of unspecified renal pelvis Urine Cytology/FISH (now) 06/19/2024 4:28 PM [facility] Gross Description A. Urine, Voided, ([id number]): Received one ThinPrep slide for cytology screen and one ThinPrep slide for UroVysion FISH 06/19/2024 4:28 PM [facility] Disclaimer Unless otherwise specified, all tissue is 10% NB formalin fixed and paraffin embedded. Technical pathology services provided by [facility] at [address] [facility] [address], [place] [address] (CLIA #[id number]/Noni Jewell MD, Recovery Advocate) 06/19/2024 4:28 PM [facility] Tissue Urine specimen from urethra / Unknown 06/02/2024 06/09/2024 11:59 AM EST us Dave Sebastian MD LAB PATHOLOGY ORDERABLES Final Result [facility] [address] [place] [address], documented in this encounter Visit Diagnoses Diagnosis Malignant neoplasm of unspecified renal pelvis (CMS/HCC V24, CMS/HCC V28) documented in this encounter Care Teams Elevator Worker Relationship Specialty Start Date End Date Perico Brothers MD [address] [address] PCP - General Family Medicine 08/30/17 documented as of this encounter
--- OUTSIDE RECORDS SUMMARY | 2025-03-13 07:39 | XMS_ITS | Clinical Summary ---
Author Organization [address] [facility] Address [address] [place] [address] Phone Care Team Providers Care Silica Mixer Operator Name Role Phone Perico Brothers MD Primary Care Provider [phone] Social History Tobacco Use Types Packs/Day Years Used Date Smoking Tobacco: Never Assessed Sex and Gender Information Value Date Recorded Sex Assigned at Not on file Legal Sex Male 2:09 PM EST Gender Identity Not on file Sexual Orientation Not on file Plan of Treatment Health Maintenance Due Date Last Done Comments Colorectal Cancer Screening: Colonoscopy 1962 DTaP,Tdap,and Td Vaccines (1 - Tdap) 1981 Pneumococcal Vaccine: 50+ Ye ars (1 of 1 - PCV) 2012 Zoster Vaccines (1 of 2) 2012 Depression Screening 05/21/2024 Cholesterol Screening (Lipid Panel) 06/09/2024 HIV Screening 06/09/2024 Hepatitis C Screening 06/09/2024 Social Influencers of Health Screening 06/09/2024 COVID-19 Vaccine (1 - 2023-2 5 season) 2025 Influenza Vaccine (#1) 2025 RSV Immunization Adult [...] patient's age to complete this topic Insurance [facility] Care Teams Silica Mixer Operator Relationship Specialty Start Date End Date Perico Brothers MD [address] [address] PCP - General Family Medicine 08/30/17
== END 2025-03-13 07:35 | disposition home or self-care (01) ==
LOC: HO.MRI 07:34
PROVIDERS: PCP Family Medicine; Visit Provider Nurse Practitioner Family
DX: M75.102 Unspecified rotator cuff tear or rupture of left shoulder, not specified as traumatic (principal); M25.512 Pain in left shoulder; M75.82 Other shoulder lesions, left shoulder
CPT/HCPCS: 73221

== ENCOUNTER 2025-03-16 09:42 | Outpatient (AMB) | payer OTHER, MEDICAID, SELFPAY ==
--- NOTE | 2025-03-16 09:47 | A.OFFVIS_ITS ---
Vital Signs 03/16/25 09:49 Height 6 ft Weight 230 lb BMI 31.2 BP 146/91 H Blood Pressure Location Rt brachial Position Sitting Pulse 71 Pulse Source Pulse Oximeter Pulse Oximetry (%) 98 Oxygen Delivery Method Room Air Intake Visit Reasons: MRI FOLLOW UP Intake Note: Pain today 7/10 Endoscopy Support Specialist Required: No Accompanied by: Self / Same As Patient Allergies ciprofloxacin (From Cipro) Allergy (Severe, Verified 03/16/25 09:50) Swelling HPI Comments Details: The patient is a 64-year-old male presenting with chronic left shoulder pain. The pain has been persistent and is exacerbated by certain movements such as overhead and backside reaches, as well as stretching and lifting. The patient reports that the pain sometimes radiates down to the upper arm and elbow, particularly with use. The MRI findings indicate mild to moderate supraspinatus tendinosis and moderate subscapular tendinosis, with no evidence of transverse tendon tear or retraction. Additionally, there is mild acromioclavicular arthritis and mild posterior deltoid muscle edema, likely due to strain. The patient has previously engaged in physical therapy for the shoulder, which was not effective, leading to a referral to Orthopedics and our office. He has been receiving cortisone injections in the shoulder joint, but these have not provided significant relief. The patient has a history of having only one kidney, which limits the use of certain medications such as anti-inflammatories. He reports good pain relief with oxycodone and has been asking for refills. Unfortunately, I have informed patient that we do not offer opioid program and will defer opioid prescribing to his PCP. - Affect: The pain impacts the patient's ability to perform certain movements and activities. - Analgesia: Current pain level is 7/10. The patient has been receiving cortisone injections, which have not been effective. Reports good pain relief with oxycodone. - Adverse Effects: The patient cannot take anti-inflammatory medications due to having one kidney. - Activities of Daily Living: Pain interferes with overhead and backside reaches, and stretching. - Aberrant Drug Related Behaviors: None reported. PRIOR: The patient is a 64-year-old male presenting with left shoulder and bilateral knee pain. The shoulder pain has been persistent despite receiving cortisone injections, with the most recent injection administered on December 26. The pain is described as constant and severe, rated at 9/10, and significantly impacts daily activities such as showering and using a towel. The patient also reports a history of bilateral knee pain attributed to osteoart hritis, with the right knee being more symptomatic currently. He has received cortisone injections in the right knee, but continues to experience pain, especially during activities like walking and climbing stairs. Physical therapy was attempted but provided minimal relief. The patient has a history of nephrectomy performed approximately 3 years ago and a past surgical history of colostomy following a colon rupture. The patient denies any current use of opioids but has used oxycodone in the past for pain management. - Onset: Chronic pain in the left shoulder and right>left knee, persisting for approximately 2 years. - Quality: Sharp, stabbing, throbbing pain in the left shoulder; sharp and aching in knees, constant and severe. - Location: Primarily in the left shoulder, radiating to the upper arm. - Exacerbating factors: Movement, cold weather, and daily activities such as showering and using a towel. - Relieving factors: Cortisone injections provide temporary relief; Tylenol used for pain management. - Interference: Pain affects sleep, daily activities, walking, climbing stairs, and bending knees. - Affect: Pain significantly impacts the patient's mood and daily functioning, causing distress and frustration. - Analgesia: Current pain level is 9/10; uses Tylenol and has received cortisone injections. - Adverse Effects: No adverse effects from current pain management reported. - Activities of Daily Living: Pain interferes with basic activities such as showering, dressing, and household tasks. - Aberrant Drug Related Behaviors: No evidence of medication misuse; patient has used oxycodone responsibly in the past. [facility] Medical History History of kidney cancer Pulmonary nodules HDL deficiency GERD (gastroesophageal reflux disease) Generalized anxiety disorder Kidney stone Former smoker Centrilobular emphysema Gross hematuria Diverticulosis History of high blood pressure Surgical History History of left nephrectomy Social History Alcohol intake: former Patient Tobacco Use Status: Former Tobacco user Current occupational status: disabled Review of Systems Const Details: - Musculoskeletal: Reports chronic left shoulder pain with radiation to the upper arm and elbow. Denies any other joint pain or swelling. All systems reviewed & are unremarkable except as noted in HPI and below Physical Exam Vital Signs: Last Vital Signs Pulse 71 03/16/25 09:49 BP 146/91 H 03/16/25 09:49 Pulse Ox 98 03/16/25 09:49 Oxygen Delivery Method Room Air 03/16/25 09:49 BMI result Body Mass Index 31.2 General: Appears afebrile. Alert and oriented. Mood and affect appropriate. Follows and participates in conversation appropriately. Respiratory effort is unlabored. No cough. Able to transition from sit to stand unassisted. Ambulates with bilaterally normal heel strike and toe off. Extrem General: Yes capillary refill normal, Yes no clubbing, cyanosis or edema and Yes no calf tenderness Left upper extremity: shoulder/upper arm (Limited ROM, increased pain with internal and external rotations.) Details: inspection abnormal, tenderness Location: of the A-C joint and over the subacromial bursa and crepitus; no swelling, no ecchymosis and no unsual warmth Results Reviewed Results Reviewed: MR SHOULDER WITHOUT CONTRAST, LEFT 03/13/25 FINDINGS: ROTATOR CUFF: Supraspinatus: Mild-moderate tendinosis Infraspinatus: Intact Teres minor: Intact Subscapularis: Moderate tendinosis. No muscle atrophy or fatty infiltration. BICEPS: Intact CORACOACROMIAL ARCH: The undersurface of the acromion is mildly curved with no subacromial spur. Mild acromioclavicular arthritis. LABRUM/CAPSULE: No displaced labral tear is seen. GLENOHUMERAL JOINT/MARROW: No fracture. No significant joint effusion. No aggressive marrow replacing lesion. Subcentimeter left axillary lymph node. Mild edema in the posterior deltoid muscle, likely strain. IMPRESSION: * Mild-moderate supraspinatus tendinosis. Moderate subscapularis tendinosis. No transverse tendon tear or retraction. * Mild acromioclavicular arthritis. * Mild posterior deltoid muscle edema, likely strain. Assessment & Plan Assessment & Plan (1) Left supraspinatus tendinitis: Code(s): M75.92 - Shoulder lesion, unspecified, left shoulder Category: Medical (2) Subscapularis tendinitis of left shoulder: Code(s): M77.8 - Other enthesopathies, not elsewhere classified Category: Medical (3) Left shoulder pain: Code(s): M25.512 - Pain in left shoulder Category: Medical (4) Painful arc syndrome of left shoulder: Code(s): M75.102 - Unspecified rotator cuff tear or rupture of left shoulder, not specified as traumatic Category: Medical Plan MRI of left shoulder findings were discussed with patient today. The plan includes scheduling an ultrasound-guided injection specifically targeting the tendinosis in the left shoulder. The patient is advised to continue physical therapy exercises at home, he also has script for formal therapy from previous visit. Due to the patient's single kidney, anti-inflammatory medications are not recommended, and alternative pain management options such as oxycodone can be continued but will be deferred to his PCP. I have informed patient that we do not offer opioid program. Schedule left therapeutic subacromial steroid injection with local and US guidance for chronic left shoulder pain. We also discussed PRP and glucose prolotherapy treatments. Expectations, risks and benefits were reviewed. Patient is aware he will be contacted to schedule this procedure. Follow-up is planned for one month after the injection to assess its effectiveness and determine if further interventions are needed. Patient was informed and verbally consented to the use of an ambient scribe for clinic note documentation during this visit. Coding Level of Care Code Est Pt Level 4 (16455) Complex EM visit Add On G2211 Diagnoses Left supraspinatus tendinitis M75.92 Subscapularis tendinitis of left shoulder M77.8 Left shoulder pain M25.512 Painful arc syndrome of left shoulder M75.102
[2025-03-16 09:49] VITALS: BP 146/91; PULSE 71; O2SAT 98; BMI 31.2
--- OUTSIDE RECORDS SUMMARY | 2025-03-16 11:04 | XMS_ITS | Clinical Summary ---
Author Organization [address] [facility] Address [address] [place] [address] Phone Care Team Providers Care Orthopedically Impaired Teacher Name Role Phone Perico Brothers MD Primary Care Provider [phone] Social History Tobacco Use Types Packs/Day Years [...] patient's age to complete this topic Insurance [facility] PLAN Care Teams Orthopedically Impaired Teacher Relationship Specialty Start Date End Date Perico Brothers MD [address] [address] PCP - General Family Medicine 08/30/17
--- OUTSIDE RECORDS SUMMARY | 2025-03-16 11:04 | XMS_ITS | Encounter Summary ---
Author Organization [facility] Address [address] [place] [address] Care Team Providers Care Pharmacy Tech Customer Service Name Role Phone Perico Brothers MD Primary Care Provider Encounter Details Date Type Department Care Team (Late st Contact Info) Description 06/09/2024 Lab Requisition [facility] - Main Lab [address] [facility] [place] [address] Dave Sebastian MD [address] [facility] [address] [place] [address] Malignant neoplasm of unspecified renal [...] AM EST) Final Diagnosis A. Urine, Voided, ([id number]): ATYPICAL UROTHELIAL CELLS. Results of UroVysion fluorescence in situ hybridization (FISH) testing: CEP3: Normal CEP7: Normal CEP17: Normal LSI 9p21: Normal Interpretation: Normal profile Controls stained appropriately. Note: The results are intended as a screening device and should be interpreted in association with other clinical and pathological findings. 06/19/2024 4:28 PM [facility] Clinical Information C65.9 Malignant neoplasm of unspecified renal pelvis Urine Cytology/FISH (now) 06/19/2024 4:28 PM [facility] Gross Description A. Urine, Voided, ([id number]): Received one ThinPrep slide for cytology screen and one ThinPrep slide for UroVysion FISH 06/19/2024 4:28 PM [facility] Disclaimer Unless otherwise specified, all tissue is 10% NB formalin fixed and paraffin embedded. Technical pathology services provided by [facility] at [address] [facility] [address], [place] [address] (CLIA #[id number]/Noni Jewell MD, Sulfur Chloride Operator) 06/19/2024 4:28 PM [facility] Tissue Urine specimen from urethra / Unknown 06/02/2024 06/09/2024 11:59 AM EST us Dave Sebastian MD LAB PATHOLOGY ORDERABLES Final Result [facility] [address] [place] [address], documented in this encounter Visit Diagnoses Diagnosis Malignant neoplasm of unspecified renal pelvis (CMS/HCC V24, CMS/HCC V28) documented in this encounter Care Teams Pharmacy Tech Customer Service Relationship Specialty Start Date End Date Perico Brothers MD [address] [address] PCP - General Family Medicine 08/30/17 documented as of this encounter
== END 2025-03-16 09:59 | disposition home or self-care (01) ==
LOC: HO.PMC 09:43
PROVIDERS: PCP Family Medicine; Visit Provider Nurse Practitioner Family
DX: M75.92 Shoulder lesion, unspecified, left shoulder (principal); M77.8 Other enthesopathies, not elsewhere classified; M25.512 Pain in left shoulder; M75.102 Unspecified rotator cuff tear or rupture of left shoulder, not specified as traumatic
CPT/HCPCS: 99214

== ENCOUNTER 2025-04-24 09:45 | Outpatient (AMB) | payer OTHER, MEDICAID, SELFPAY ==
--- NOTE | 2025-04-24 10:05 | A.OFFVIS_ITS ---
Vital Signs 04/24/25 10:08 Height 6 ft Weight 233 lb BMI 31.6 BP 126/77 Blood Pressure Location Lt brachial Position Sitting Respiration 16 Pulse 94 Pulse Source Pulse Oximeter Pulse Oximetry (%) 95 Oxygen Delivery Method Room Air Intake Visit Reasons: LEFT SHOULDER INJECTION W/ULTRASOUND Retort Kiln Burner Required: No Inside Sales Professional: Inside Sales Professional Present Accompanied by: Junior Frederick Allergies ciprofloxacin (From Cipro) Allergy (Severe, Verified 04/24/25 10:09) Swelling Medication List - Last Reconciled 04/24/25 by Iliana Foote LPN acetaminophen 325 mg PO Q8H amlodipine 5 mg PO DAILY cimetidine 400 mg PO BEDTIME clonazepam 1 mg PO BID naloxone 4 mg/actuation (Narcan) 4 mg intranasal Q2M PRN pantoprazole 40 mg PO DAILY potassium citrate ER 15 mEq PO BID trazodone 100 - 200 mg PO BEDTIME PRN venlafaxine ER 150 mg PO DAILY HPI HPI LEFT SHOULDER INJECTION W/ULTRASOUND: Details: History of Present Illness The patient is a 64-year-old male presenting with left shoulder pain, for which he was referred for an injection. He has a diagnosis of supraspinatus tendinosis and received a Depo-Medrol injection in December which provided no relief. An MRI of the left shoulder revealed mild to moderate supraspinatus tendinosis, subscapularis tendinosis, and mild AC joint arthritis. For the past two years, the patient has been receiving cortisone injections in his left shoulder and right knee, which typically provided relief within 2-3 days and lasted for a few months. However, the most recent injection was effective for his knee but not his shoulder. The patient is left-handed. Past medical history is significant for kidney cancer. He denies being diabetic. The patient is on SSDI. Pain Description - Location: The patient reports pain in his left shoulder. - Exacerbating Factors: Pain is worsened by moving or stretching the arm, particularly with upward movements. - Relieving Factors: Pain is relieved by keeping the arm down. - Functional Impact: The pain is particularly impactful as the patient is left- handed. Physical Exam Results - MRI of the left shoulder: Showed mild to moderate supraspinatus tendinosis, subscapularis tendinosis, and mild AC joint arthritis. Pain Management - Analgesia: The patient previously received cortisone injections for approximately two years, but the most recent injection in December was not effective for his shoulder pain. - Adverse Effects: The clinician advised caution regarding excessive cortisone intake. - Activities of Daily Living: The patient experiences pain when lifting his arm, and this is impactful as he is left-handed. Procedure - Procedure: Ultrasound-guided left shoulder injection. - Consent: Informed consent was obtained prior to the procedure. - Technique: The patient was placed in a sitting position, and the left shoulder was prepped. - Ultrasound was used to visualize the supraspinatus tendon. - A mixture of 20 mg of Kenalog and 3 mL of 0.25% ropivacaine was injected above the supraspinatus tendon. - A mixture of 20 mg of Kenalog and 3 mL of 0.25% ropivacaine was injected into the subacromial bursa. - Outcome: The patient tolerated the procedure well with no blood loss. - Documentation: An ultrasound image of the guided injection was saved to the record. [facility] Medical History History of kidney cancer Pulmonary nodules HDL deficiency GERD (gastroesophageal reflux disease) Generalized anxiety disorder Kidney stone Former smoker Centrilobular emphysema Gross hematuria Diverticulosis History of high blood pressure Surgical History History of left nephrectomy Social History Alcohol intake: former Patient Tobacco Use Status: Former Tobacco user Current occupational status: disabled Physical Exam Vital Signs: Last Vital Signs Pulse 94 04/24/25 10:08 Resp 16 04/24/25 10:08 BP 126/77 04/24/25 10:08 Pulse Ox 95 04/24/25 10:08 Oxygen Delivery Method Room Air 04/24/25 10:08 BMI result Body Mass Index 31.6 Assessment & Plan Assessment & Plan (1) Left supraspinatus tendinitis: Code(s): M75.92 - Shoulder lesion, unspecified, left shoulder Category: Medical (2) Tendonitis of left rotator cuff: Code(s): M75.82 - Other shoulder lesions, left shoulder Category: Medical Plan Plan Patient was informed and verbally consented to the use of an ambient scribe for clinic note documentation during this visit. 1. Left Shoulder Tendinosis - The patient presents with tendinosis of the supraspinatus and subscapularis tendons, which is a degeneration of the tendon substance. - As previous blind cortisone injections have ceased to be effective, an ultrasound-guided injection was performed for better targeting of the medication. - A total of 40 mg of Kenalog with ropivacaine was injected above the supraspinatus tendon and into the subacromial bursa. - The patient will follow up as needed when the effects of the injection wear off, at which point the next steps will be determined based on the duration of relief. Discussion Notes I explained to the patient that his diagnosis is tendinosis, a degenerative condition of the tendon that can be difficult to reverse. I acknowledged that his previous cortisone injections have stopped working and explained that the procedure performed today was different because it used ultrasound for better targeting, whereas his previous injections were likely done blindly. I informed him that we will assess the effectiveness of this injection based on how long the relief lasts. I instructed him to return for a follow-up visit whenever the injection wears off, and we will decide on the next course of action based on the duration of its effect. Informed consent was obtained for the procedure. Patient Instructions - Be careful with how much cortisone you receive, as too much can be a concern. - We hope the guided injection performed today will be more effective than your previous ones. - Please come back to see me when the injection stops working or wears off. - We will decide what to do next based on how long this injection gives you relief. Coding Level of Care Code Procedure Only Diagnoses Left supraspinatus tendinitis M75.92 Tendonitis of left rotator cuff M75.82
[2025-04-24 10:08] VITALS: BP 126/77; PULSE 94; RESP 16; O2SAT 95; BMI 31.6
--- OUTSIDE RECORDS SUMMARY | 2025-04-24 10:53 | XMS_ITS | Encounter Summary ---
Author Organization [facility] Address [address] [place] [address] Care Team Providers Care Pharmaceutical Salesperson Name Role Phone Perico Brothers MD Primary Care Provider [phone] Encounter Details Date Type Department Care Team (Late st Contact Info) Description 04/01/2025 Lab Requisition [facility] - Main Lab [address] [facility] [place] [address] Dave Sebastian MD [address] [facility] [address] [place] [address] Malignant neoplasm of unspecified renal [...] Procedure Name Priority Date/Time Associated Diagnosis Comments NON-GYNECOLOGIC CYTOLOGY Routine 03/30/2025 12:00 AM EST Malignant neoplasm of unspecified renal pelvis (CMS/HCC V24, CMS/HCC V28) documented in this encounter Results * Non-gynecologic cytology (03/30/2025 12:00 AM EST) Final Diagnosis A. Urine, Voided, : Negative for high grade urothelial carcinoma. 04/09/2025 3:[address] [facility] at 1523 EST Specimen A Adequacy Satisfactory for evaluation 04/09/2025 3:23 PM EST [facility] Clinical Information Malignant neoplasm of unspecified renal pelvis C65.9 Urine cytology with reflex UroVysion (AUC/SHGUC) 04/09/2025 3:[address] [facility] Gross Description A. Urine, Voided, : Received one ThinPrep slide for cytology. 04/09/2025 3:[address] [facility] Disclaimer Unless otherwise specified, all tissue is 10% NB formalin fixed and paraffin embedded. Technical pathology services provided by [facility] at [address], [place] [address] (CLIA #[id number]/Jose Jewell MD, Bistro Attendant) 04/09/2025 3:[address] [facility] Urine Urine specimen from urethra / Unknown 03/30/2025 04/01/2025 10:30 AM EST us Dave Sebastian MD LAB CYTOLOGY ORDERABLES Final R esult [facility] [address] [place] [address], documented in this encounter Visit Diagnoses Diagnosis Malignant neoplasm of unspecified renal pelvis (CMS/HCC V24, CMS/HCC V28) documented in this encounter Care Teams Pharmaceutical Salesperson Relationship Specialty Start Date End Date Perico Brothers MD [address] [address] PCP - General Family Medicine 08/30/17 documented as of this encounter
--- OUTSIDE RECORDS SUMMARY | 2025-04-24 10:53 | XMS_ITS | Encounter Summary ---
Author Organization [facility] Address [address] [address] Phone Care Team Providers Care Tunnel Drier Operator Name Role Phone Zev Sanchez MD, Perico Primary Care Provider [phone] Encounter Details Date Type Department Care Team (Late Contact Info) Description 04/16/2025 Orders Only [facility] [address] [address] Dav Xavier MD [facility] [address] [address] Stage 3b chronic kidney disease (HCC); Hypertension; History of nephrectomy; Cancer of left renal pelvis (HCC); Other acute kidney failure (HCC); Centrilobular emphysema (HCC) Social History Tobacco Use Types Packs/Day Years [...] Care Team (Late st Contact Info) Description 10/05/2025 8:20 AM EDT Office Visit [facility] [place] [id number] [address] Dav Xavier MD [facility] [address] [address] documented as of this encounter Procedures Procedure Name Priority Date/Time Associated Diagnosis Comments PROTEIN / CREATININE RATIO, URINE Routine 03/18/2025 9:33 AM EDT VITAMIN D 25 HYDROXY Routine 03/18/2025 9:33 AM EDT CBC AND DIFFERENTIAL Routine 03/18/2025 9:33 AM EDT URIC ACID Routine 03/18/2025 9:33 AM EDT PHOSPHATE ( PHOSPHORUS) Routine 03/18/2025 9:33 AM EDT PTH, INTACT Routine 03/18/2025 9:33 AM EDT MAGNESIUM Routine 03/18/2025 9:33 AM EDT COMPREHENSIVE METABOLIC PANEL Routine 03/18/2025 9:33 AM EDT documented in this encounter Results * PTH, Intact (03/18/2025 9:33 AM EDT) PTH 20 15 - 65 pg/mL [facility] 03/18/2025 9:33 AM EDT 03/18/2025 us Dav Xavier MD LAB BLOOD ORDERABLES Final Re sult [facility] [address] [place] [address] * Magnesium (03/18/2025 9:33 AM EDT) Magnesium 2.1 1.6 - 2.3 mg/dL [facility] 03/18/2025 9:33 AM EDT 03/18/2025 us Dav Xavier MD LAB BLOOD ORDERABLES Final Re sult Performing Organization Address City/[facility]/ZIP Co de Phone Number [facility] [address] [place] [address] * Phosphorus (03/18/2025 9:33 AM EDT) Phosphorus 2.8 2.8 - 4.1 mg/dL [facility] 03/18/2025 9:33 AM EDT 03/18/2025 Dav Xavier MD LAB BLOOD ORDERABLES Final Re sult Performing Organization Address [facility]/ZIP Co de Phone Number [facility] [address] [place] [address] * Uric Acid (03/18/2025 9:33 AM EDT) Uric Acid 6.3 3.8 - 8.4 mg/dL [facility] Comment:Therapeutic target f or gout patients: <6.0 03/18/2025 9:33 AM EDT 03/18/2025 us Dav Xavier MD LAB BLOOD ORDERABLES Final Re sult Performing Organization Address [facility] Co de Phone Number [facility] [address] [place] [address] * Vitamin D 25 Hydroxy (03/18/2025 9:33 AM EDT) Vitamin D, 25-OH, Total 38.8 30.0 - 100.0 ng/mL [facility] Comment: Vitamin D deficiency has been defined by the [place] of Medicine and an Endocrine Society practice guideline as a level of serum 25-OH vitamin D less than 20 ng/mL (1,2). The Endocrine Society went on to further define vitamin D insufficiency as a level between 21 and 29 ng/mL (2). 1. IOM ([place] of Medicine). 2010. Dietary reference intakes for calcium and D. [place]: The National Academies Press. 2. Flory MF, Dianelys [place], Jb COYNE, et al. Evaluation, treatment, and prevention of vitamin D deficiency: an Endocrine Society clinical practice guideline. JCEM. 2010; 96(7):1911-30. 03/18/2025 9:33 AM EDT 03/18/2025 Dav Xavier MD LAB BLOOD ORDERABLES Final Re sult Performing Organization Address City/[facility]/ZIP Co de Phone Number [facility] [employer] [facility] [address] [place] [address] * Protein, Total, Random Urine w/Creatinine (Protein/Creat Ratio) (03/18/2025 9:33 AM EDT) Creatinine, Ur 123.3 Not Estab. mg/dL [facility] Protein, Ur 6.5 Not Estab. mg/dL [facility] Urine Protein/Creatin ine Ratio 53 0 - 200 mg/g creat [facility] 03/18/2025 9:33 AM EDT 03/18/2025 Dav Xavier MD LAB URINE ORDERABLES Final Re sult Performing Organization Address City/[facility]/ZIP Co de Phone Number [facility] [address] [place] [address] * (ABNORMAL) Comprehensive Metabolic Panel (03/18/2025 9:33 AM EDT) Glucose 91 70 - 99 mg/dL [facility] BUN 19 8 - 27 mg/dL [facility] Creatinine 1.54(H) 0.76 - 1.27 mg/dL [facility] eGFR CKD-EPI CR 2020 51(L) >59 mL/min/1.7 3 [facility] BUN/Creatinine Ratio 12 10 - 24 [facility] Sodium 139 134 - 144 mmol/L [facility] Potassium 4.4 3.5 - 5.2 mmol/L [facility] Chloride 103 96 - 106 mmol/L [facility] Bicarbonate (CO2) 21 20 - 29 mmol/L [facility] Total Protein 7.2 6.0 - 8.5 g/dL [facility] Albumin 4.6 3.9 - 4.9 g/dL [facility] Globulin 2.6 1.5 - 4.5 g/dL [facility] Total Bilirubin 0.5 0.0 - 1.2 mg/dL [facility] Alkaline Phosphatase 87 47 - 123 IU/L [facility] AST (SGOT) 17 0 - 40 IU/L [facility] ALT (SGPT) 12 0 - 44 IU/L [facility] Calcium 9.9 8.6 - 10.2 mg/dL [facility] 03/18/2025 9:33 AM EDT 03/18/2025 us Dav Xavier MD LAB BLOOD ORDERABLES Final Re sult [facility] [address] [place] [address] * CBC and Differential (03/18/2025 9:33 AM EDT) WBC 6.9 3.4 - 10.8 x10E3/uL [facility] RBC 5.13 4.14 - 5.80 x10E6/uL [facility] Hemoglobin 16.1 13.0 - 17.7 g/dL [facility] Hematocrit 46.9 37.5 - 51.0 % [facility] MCV 91 79 - 97 fL [facility] MCH 31.4 26.6 - 33.0 pg [facility] MCHC 34.3 31.5 - 35.7 g/dL [facility] RDW 12.5 11.6 - 15.4 % [facility] Platelets 363 150 - 450 x10E3/uL [facility] Neutrophils Relative 58 Not Estab. % [facility] Lymphocytes Relative 30 Not Estab. % [facility] Monocytes 9 Not Estab. % [facility] Eosinophils Relative 2 Not Estab. % [facility] Basophils Relative 1 Not Estab. % [facility] Neutrophils Absolute 4.0 1.4 - 7.0 x10E3/uL [facility] Lymphocytes Absolute 2.1 0.7 - 3.1 x10E3/uL [facility] Monocytes Absolute 0.6 0.1 - 0.9 x10E3/uL [facility] Eosinophils Absolute 0.1 0.0 - 0.4 x10E3/uL [facility] Basophils Absolute 0.1 0.0 - 0.2 x10E3/uL [facility] Immature Granulocytes 0 Not Estab. % [facility] Immature Grans (Absolute) 0.0 0.0 - 0.1 x10E3/uL [facility] 03/18/2025 9:33 AM EDT 03/18/2025 us Dav Xavier MD LAB BLOOD ORDERABLES Final Re sult [facility] [address] [place] [address] documented in this encounter Visit Diagnoses Diagnosis Stage 3b chronic kidney disease (HCC) Hypertension History of nephrectomy Cancer of left renal pelvis (HCC) Other acute kidney failure (HCC) Centrilobular emphysema (HCC) documented in this encounter Care Teams Tunnel Drier Operator Relationship Specialty Start Date End Date Perico Brothers MD [address] [place] [address], [address] [place] [address] PCP - General Family Medicine 02/21/21 documented as of this encounter
--- OUTSIDE RECORDS SUMMARY | 2025-04-24 10:53 | XMS_ITS | Encounter Summary ---
Author Organization [facility] Address [address] [facility] [address] [place] [address] Phone Care Team Providers Care Gold Miner Name Role Phone Zev Sanchez MD, Perico Primary Care Provider [phone] Reason for Visit * Reason Comments Med Refill Encounter Details Date Type Department Care Team (Late Contact Info) Description 09/06/2021 Refill [facility] [address] [facility] 200 [place] [address] Adama Holcomb, DO [address] [place] [address] Social History Tobacco Use Types Packs/Day Years [...] Visit [facility] [address] [address] Dav Xavier MD [address] [facility] [address] [place] [address] documented as of this encounter Visit Diagnoses Not on filedocumented in this encounter Care Teams Gold Miner Relationship Specialty Start Date End Date Perico Brothers MD [address] [place] [address], [address] [place] [id number] PCP - General Family Medicine 02/21/21 documented as of this encounter
--- OUTSIDE RECORDS SUMMARY | 2025-04-24 10:53 | XMS_ITS | Clinical Summary ---
Author Organization 299 [facility] Address [address] [place] [address] Phone Care Team Providers Care Human Insights Lead Ads Marketing Name Role Phone Perico Brothers MD Primary Care Provider [phone] Encounters Date Type Department Care Team Description 04/01/2025 Lab Requisition [facility] - Main Lab [address] [facility] [place] [address] Dave Sebastian MD Malignant neoplasm of unspecified renal pelvis (CMS/HCC V24, CMS/HCC V28) from Last 3 Months Social History Tobacco [...] Health Screening 06/09/2024 COVID-19 Vaccine (1 - 2024-2 6 season) 2025 Influenza Vaccine (#1) 2025 RSV [...] EST Malignant neoplasm of unspecified renal pelvis ([facility] V24, [facility] V28) from Last 3 Months Results * Non-gynecologic cytology (03/30/2025 12:00 AM EST) Final Diagnosis A. Urine, Voided, : Negative for high grade urothelial carcinoma. 04/09/2025 3:23 PM [facility] at 1523 EST Specimen A Adequacy Satisfactory for evaluation 04/09/2025 3:23 PM [facility] Clinical Information Malignant neoplasm of unspecified renal pelvis C65.9 Urine cytology with reflex UroVysion (AUC/SHGUC) 04/09/2025 3:23 PM [facility] Gross Description A. Urine, Voided, : Received one ThinPrep slide for cytology. 04/09/2025 3:23 PM [facility] Disclaimer Unless otherwise specified, all tissue is 10% NB formalin fixed and paraffin embedded. Technical pathology services provided by [facility] at [address] [place] [address] [address], [place] [address] (CLIA #[id number]/Jose Jewell MD, Customer Assistance Representative) 04/09/2025 3:23 PM EST [facility] Urine Urine specimen from urethra / Unknown 03/30/2025 04/01/2025 10:30 AM EST us Dave Sebastian MD LAB CYTOLOGY ORDERABLES Final R esult [facility] [address] [place] [address], from Last 3 Months Insurance [facility] PLAN MEDICAID - [place] Care Teams Human Insights Lead Ads Marketing Relationship Specialty Start Date End Date Perico Brothers MD [address] [phone] PCP - General Family Medicine 08/30/17
--- OUTSIDE RECORDS SUMMARY | 2025-04-24 10:53 | XMS_ITS | Encounter Summary ---
Author Organization [facility] Address [address] [facility] 200 [place] [address] Phone Care Team Providers Care Loom Overhauler Name Role Phone Zev Sanchez MD, Perico Primary Care Provider [phone] Encounter Details Date Type Department Care Team (Late Contact Info) Description 11/09/2021 Telephone [facility] [address] [facility] 200 [place] [address] Adama Holcomb, DO [address] [place] [address] Social History Tobacco Use Types Packs/Day Years [...] Visit [facility] [address] [facility] [address] [place] [address] Dav Xavier MD [address] [facility] [address] [place] [address] documented as of this encounter Visit Diagnoses Not on filedocumented in this encounter Care Teams Loom Overhauler Relationship Specialty Start Date End Date Perico Brothers MD [address] [place] [address], [address] [place] [address] PCP - General Family Medicine 02/21/21 documented as of this encounter
--- OUTSIDE RECORDS SUMMARY | 2025-04-24 10:53 | XMS_ITS | Encounter Summary ---
Author Organization [facility] Address [address] [place] [address] Care Team Providers Care Die Caster Name Role Phone Perico Brothers MD Primary Care Provider [phone] Encounter Details Date Type Department Care Team (Late st Contact Info) Description 06/09/2024 Lab Requisition [facility] - Main Lab [address] [facility] [place] [address] Dave Sebastian MD [address] [place] [address] Malignant neoplasm of unspecified renal [...] AM EST) Final Diagnosis A. Urine, Voided, ([id number]): ATYPICAL UROTHELIAL CELLS. Results of UroVysion fluorescence in situ hybridization (FISH) testing: CEP3: Normal CEP7: Normal CEP17: Normal LSI 9p21: Normal Interpretation: Normal profile Controls stained appropriately. Note: The results are intended as a screening device and should be interpreted in association with other clinical and pathological findings. 06/19/2024 4:28 PM EST [facility] at 1628 EST Clinical Information C65.9 Malignant neoplasm of unspecified renal pelvis Urine Cytology/FISH (now) 06/19/2024 4:28 PM [facility] Gross Description A. Urine, Voided, ([id number]): Received one ThinPrep slide for cytology screen and one ThinPrep slide for UroVysion FISH 06/19/2024 4:28 PM [facility] Disclaimer Unless otherwise specified, all tissue is 10% NB formalin fixed and paraffin embedded. Technical pathology services provided by [facility] [address] [facility] [address] [place] [address] (CLIA #[id number]/Noni Jewell MD, [employer]) 06/19/2024 4:28 PM [facility] Tissue Urine specimen from urethra / Unknown 06/02/2024 06/09/2024 11:59 AM EST us Dave Sebastian MD LAB PATHOLOGY ORDERABLES Final Result [facility] [address] [place] [address], documented in this encounter Visit Diagnoses Diagnosis Malignant neoplasm of unspecified renal pelvis (CMS/HCC V24, CMS/HCC V28) documented in this encounter Care Teams Die Caster Relationship Specialty Start Date End Date Perico Brothers MD [address] [address] PCP - General Family Medicine 08/30/17 documented as of this encounter
--- OUTSIDE RECORDS SUMMARY | 2025-04-24 10:53 | XMS_ITS | Clinical Summary ---
Author Organization [facility] Address [address] [place] [phone] Phone Care Team Providers Care Visual Display Associate Name Role Phone Zev Sanchez MD, Timothy Primary Care Provider [phone] Allergies Active Allergy Reactions Criticality Noted Date [...] 15 mg in the evening. 02/29/2024 Active risperiDONE (RisperDAL) 1 MG tablet TAKE 1-2 TABLET BY MOUTH EVERY NIGHT AT BEDTIME DIRECTED 10/08/2024 Active Potassium Citrate ER 15 MEQ (1620 MG) tablet controlled-rele ase TAKE 1 TABLET BY MOUTH TWICE A DAY IN THE MORNING AND IN THE EVENING 180 tablet 1 03/18/2025 Active cloNIDine (CATAPRES) 0.1 MG tablet Take 0.1 mg by mouth every night 02/24/2025 Active Active Problems Problem Noted Date Diagnosed [...] Encounters Date Type Department Care Team Description 04/16/2025 Orders Only [facility] [address] [facility] [address] [place] [address] Dav Xavier MD Stage 3b chronic kidney disease (HCC); Hypertension; History of nephrectomy; Cancer of left renal pelvis (HCC); Other acute kidney failure (HCC); Centrilobular emphysema (HCC) 04/06/2025 8:20 AM EST Office Visit [facility] [address] [facility] [address] [place] [phone] Dav Xavier MD Stage 3b chronic kidney disease (HCC) (Primary Dx); Nephrolithiasis; Hypertension; History of nephrectomy; Cancer of left renal pelvis (HCC); Other bipolar disorder (HCC) 03/18/2025 Refill [facility] [address] [place] [phone] Dav Xavier MD from Last 3 Months Immunizations Immunization Administration [...] Sign Reading Time Taken Comments Blood Pressure 124/90 04/06/2025 8:19 AM EST Pulse 89 04/06/2025 8:19 AM EST Temperature - - Respiratory Rate - - Oxygen Saturation 94% 04/06/2025 8:19 AM EST Inhaled Oxygen Concentration - - Weight 108 kg (238 lb) 04/06/2025 8:19 AM EST Height 180.3 cm (5' 11 ) 04/14/2024 9:46 AM EST Body Mass Index 33.19 04/14/2024 9:46 AM EST Plan of Treatment Upcoming Encounters Date Type Department Care Team (Late st Contact Info) Description 10/05/2025 8:20 AM EDT Office Visit [facility] [address] [address] Dav Xavier MD [address] [address] Health Maintenance Due Date Last [...] Date/Time Associated Diagnosis Comments PTH, INTACT Routine 03/18/2025 9:33 AM EDT MAGNESIUM Routine 03/18/2025 9:33 AM EDT PHOSPHATE ( PHOSPHORUS) Routine 03/18/2025 9:33 AM EDT URIC ACID Routine 03/18/2025 9:33 AM EDT VITAMIN D 25 HYDROXY Routine 03/18/2025 9:33 AM EDT PROTEIN / CREATININE RATIO, URINE Routine 03/18/2025 9:33 AM EDT COMPREHENSIVE METABOLIC PANEL Routine 03/18/2025 9:33 AM EDT CBC AND DIFFERENTIAL Routine 03/18/2025 9:33 AM EDT from Last 3 Months Results * Protein, Total, Random Urine w/Creatinine (Protein/Creat Ratio) (03/18/2025 9:33 AM EDT) Creatinine, Ur 123.3 Not Estab. mg/dL [facility] Protein, Ur 6.5 Not Estab. mg/dL [facility] Urine Protein/Creatin ine Ratio 53 0 - 200 mg/g creat [facility] 03/18/2025 9:33 AM EDT 03/18/2025 Dav Xavier MD LAB URINE ORDERABLES Final Re sult Performing Organization Address City/[facility] Co de Phone Number [facility] [address] [place] [address] * Vitamin D 25 Hydroxy (03/18/2025 9:33 AM EDT) Vitamin D, 25-OH, Total 38.8 30.0 - 100.0 ng/mL [facility] Comment: Vitamin D deficiency has been defined by the [place] of Medicine and an Endocrine Society practice guideline as a level of serum 25-OH vitamin D less than 20 ng/mL (1,2). The Endocrine Society went on to further define vitamin D insufficiency as a level between 21 and 29 ng/mL (2). 1. IOM ([place] of Medicine). 2010. Dietary reference intakes for calcium and D. [place]: The National Academies Press. 2. Flory MF, Dianelys NOLASCO, Jb COYNE, et al. Evaluation, treatment, and prevention of vitamin D deficiency: an Endocrine Society clinical practice guideline. JCEM. 2010; 96(7):1911-30. 03/18/2025 9:33 AM EDT 03/18/2025 Dav Xavier MD LAB BLOOD ORDERABLES Final Re sult Performing Organization Address City/[facility]/ZIP Co de Phone Number [facility] [address] [place] [address] * CBC and Differential (03/18/2025 9:33 AM EDT) WBC 6.9 3.4 - 10.8 x10E3/uL [facility] RBC 5.13 4.14 - 5.80 x10E6/uL [facility] Hemoglobin 16.1 13.0 - 17.7 g/dL [facility] Hematocrit 46.9 37.5 - 51.0 % [facility] MCV 91 79 - 97 fL [facility] MCH 31.4 26.6 - 33.0 pg [facility] MCHC 34.3 31.5 - 35.7 g/dL [facility] RDW 12.5 11.6 - 15.4 % [facility] Platelets 363 150 - 450 x10E3/uL [facility] Neutrophils Relative 58 Not Estab. % [facility] Lymphocytes Relative 30 Not Estab. % [facility] Monocytes 9 Not Estab. % [facility] Eosinophils Relative 2 Not Estab. % [facility] Basophils Relative 1 Not Estab. % [facility] Neutrophils Absolute 4.0 1.4 - 7.0 x10E3/uL [facility] Lymphocytes Absolute 2.1 0.7 - 3.1 x10E3/uL [facility] Monocytes Absolute 0.6 0.1 - 0.9 x10E3/uL [facility] Eosinophils Absolute 0.1 0.0 - 0.4 x10E3/uL [facility] Basophils Absolute 0.1 0.0 - 0.2 x10E3/uL [facility] Immature Granulocytes 0 Not Estab. % [facility] Immature Grans (Absolute) 0.0 0.0 - 0.1 x10E3/uL [facility] 03/18/2025 9:33 AM EDT 03/18/2025 Dav Xavier MD LAB BLOOD ORDERABLES Final Re sult Performing Organization Address City/[facility]/ZIP Co de Phone Number [facility] [address] [place] [address] * Uric Acid (03/18/2025 9:33 AM EDT) Uric Acid 6.3 3.8 - 8.4 mg/dL [facility] Comment:Therapeutic target f or gout patients: <6.0 03/18/2025 9:33 AM EDT 03/18/2025 Dav Xavier MD LAB BLOOD ORDERABLES Final Re sult Performing Organization Address [facility] Co de Phone Number [facility] [address] [place] [address] * Phosphorus (03/18/2025 9:33 AM EDT) Phosphorus 2.8 2.8 - 4.1 mg/dL [facility] 03/18/2025 9:33 AM EDT 03/18/2025 Dav Xavier MD LAB BLOOD ORDERABLES Final Re sult Performing Organization Address [facility]/ZIP Co de Phone Number [facility] [address] [place] [address] * PTH, Intact (03/18/2025 9:33 AM EDT) PTH 20 15 - 65 pg/mL [facility] 03/18/2025 9:33 AM EDT 03/18/2025 Dav Xavier MD LAB BLOOD ORDERABLES Final Re sult Performing Organization Address City/[facility]/ZIP Co de Phone Number [facility] [address] [place] [address] * Magnesium (03/18/2025 9:33 AM EDT) Pathologist [facility] Magnesium 2.1 1.6 - 2.3 mg/dL [facility] 03/18/2025 9:33 AM EDT 03/18/2025 us Dav Xavier MD LAB BLOOD ORDERABLES Final Re sult [facility] [address] [place] [address] * (ABNORMAL) Comprehensive Metabolic Panel (03/18/2025 9:33 AM EDT) Pathologist [facility] Glucose 91 70 - 99 mg/dL [facility] BUN 19 8 - 27 mg/dL [facility] Creatinine 1.54(H) 0.76 - 1.27 mg/dL [facility] eGFR CKD-EPI CR 2020 51(L) >59 mL/min/1.7 3 [facility] BUN/Creatinine Ratio 12 10 - 24 [facility] Sodium 139 134 - 144 mmol/L [facility] Potassium 4.4 3.5 - 5.2 mmol/L [facility] Chloride 103 96 - 106 mmol/L [facility] Bicarbonate (CO2) 21 20 - 29 mmol/L [facility] Total Protein 7.2 6.0 - 8.5 g/dL [facility] Albumin 4.6 3.9 - 4.9 g/dL [facility] Globulin 2.6 1.5 - 4.5 g/dL [facility] Total Bilirubin 0.5 0.0 - 1.2 mg/dL [facility] Alkaline Phosphatase 87 47 - 123 IU/L [facility] AST (SGOT) 17 0 - 40 IU/L [facility] ALT (SGPT) 12 0 - 44 IU/L [facility] Calcium 9.9 8.6 - 10.2 mg/dL [facility] 03/18/2025 9:33 AM EDT 03/18/2025 us Dav Xavier MD LAB BLOOD ORDERABLES Final Re sult [facility] [address] [place] [address] from Last 3 Months Insurance [place] Care Teams Visual Display Associate Relationship Specialty Start Date End Date Perico Brothers MD [address] [place] [address], [address] [place], [place] [phone] PCP - General Family Medicine 02/21/21
== END 2025-04-24 10:29 | disposition home or self-care (01) ==
LOC: HO.PMC 09:45
PROVIDERS: PCP Family Medicine; Visit Provider Internal Medicine
DX: M75.82 Other shoulder lesions, left shoulder (principal); M75.92 Shoulder lesion, unspecified, left shoulder
CPT/HCPCS: 20611

== ENCOUNTER → 2025-04-24 09:45 | Outpatient (BNVA) | payer OTHER, MEDICAID, SELFPAY | PROVIDERS: PCP Family Medicine; Visit Provider Internal Medicine | DX: M75.82 Other shoulder lesions, left shoulder (principal) | CPT/HCPCS: 20611 ==

== ENCOUNTER 2025-05-05 15:18 | Outpatient (AMB) | payer OTHER, MEDICAID, SELFPAY ==
[2025-05-05 15:23] VITALS: BMI 31.6
--- NOTE | 2025-05-05 15:23 | A.OFFVIS_ITS ---
Vital Signs 05/05/25 15:23 Height 6 ft Weight 233 lb BMI 31.6 Intake Visit Reasons: INJ-Rt Knee INJ Intake Note: Vinay is a 64 year old male who presents today for a Righ knee cortisone injection. Last injection done 12/26/24. Allergies ciprofloxacin (From Cipro) Allergy (Severe, Verified 05/05/25 15:24) Swelling HPI HPI INJ-Rt Knee INJ: Details: The patient is a 64-year-old male who presents to the office today for chronic right knee pain due to osteoarthritis. Last injection was 12/26/2024 in which gave the patient good relief. He is looking to repeat injection today. [facility] Medical History History of kidney cancer Pulmonary nodules HDL deficiency GERD (gastroesophageal reflux disease) Generalized anxiety disorder Kidney stone Former smoker Centrilobular emphysema Gross hematuria Diverticulosis History of high blood pressure Surgical History History of left nephrectomy Social History Alcohol intake: former Patient Tobacco Use Status: Former Tobacco user Current occupational status: disabled Review of Systems Const All systems reviewed & are unremarkable except as noted in HPI and below Physical Exam Vital Signs: BMI result Body Mass Index 31.6 Const General: cooperative, healthy appearing and no acute distress Resp Effort & Inspection: normal respiratory effort and able to speak in complete sentences Extrem Other: Right knee: Normal to inspection. No ecchymosis, erythema, or joint effusion. No tenderness to palpation along the medial or lateral joint lines. Full knee extension and flexion. Negative Jennifer's. Negative anterior drawer. NVI. Psych Appearance: grossly normal Mental Status: mental status grossly normal Attitude: cooperative Assessment & Plan Assessment & Plan (1) Internal derangement of right knee: Code(s): M23.91 - Unspecified internal derangement of right knee Category: Medical Plan The patient was offered a cortisone injection in right knee. The patient was explained the risks, benefits, and alternatives to receiving this injection. After receiving consent for the injection, the patient had the procedure done while in the office today. The patient tolerated the procedure well with no complications. The risks, benefits, and alternatives to a corticosteroid injection were discussed with the patient, including the potential benefits of decreased inflammation and pain, improved function, and diagnostic value. Risks were reviewed, including post-injection flare, skin or fat atrophy, transient facial flushing, temporary elevation in blood glucose, bruising, and rare but serious complications such as infection, tendon weakening or rupture, and cartilage damage with repeated injections. Procedure-related discomfort and possible vasovagal symptoms were also explained. Alternatives were reviewed, including NSAIDs, physical therapy, activity modification, bracing, ice/heat, weight management, hyaluronic acid injections when appropriate, PRP or other orthobiologics, oral steroids, surgery depending on pathology, and observation. The patient verbalized understanding and elected to proceed. After receiving consent for the injection, the patient had the procedure done while in the office today. The patient tolerated the procedure well with no complications. Follow-up will be PRN, or sooner if needed Coding Level of Care Code Est Pt Level 3 (53085) Add On Problem Visit Only Diagnoses Internal derangement of right knee M23.91
--- OUTSIDE RECORDS SUMMARY | 2025-05-05 19:36 | XMS_ITS | Clinical Summary ---
Author Organization [facility] Address [address] [place] [address] Phone Care Team Providers Care Project Inspector Name Role Phone Perico Brothers MD Primary Care Provider [phone] Encounters Date Type Department Care Team Description 04/01/2025 Lab Requisition [facility] - Main Lab [address] [facility] [place] [address] Dave Sebastian MD Malignant neoplasm [...] EST Malignant neoplasm of unspecified renal pelvis ([facility] V24, [facility] V28) from Last 3 Months Results * Non-gynecologic cytology (03/30/2025 12:00 AM EST) Final Diagnosis A. Urine, Voided, : Negative for high grade urothelial carcinoma. 04/09/2025 3:23 PM [facility] at 1523 EST Specimen A Adequacy Satisfactory for evaluation 04/09/2025 3:23 PM [facility] Clinical Information Malignant neoplasm of unspecified renal pelvis C65.9 Urine cytology with reflex UroVysion (AUC/SHGUC) 04/09/2025 3:23 PM [facility] Gross Description A. Urine, Voided, : Received one ThinPrep slide for cytology. 04/09/2025 3:23 PM [facility] Disclaimer Unless otherwise specified, all tissue is 10% NB formalin fixed and paraffin embedded. Technical pathology services provided by [facility] at [address] [place] [address] [address], [place] [address] (CLIA #[id number]/Jose Jewell MD, Stranner) 04/09/2025 3:23 PM EST [facility] Urine Urine specimen from urethra / Unknown 03/30/2025 04/01/2025 10:30 AM EST us Dave Sebastian MD LAB CYTOLOGY ORDERABLES Final R esult [facility] [address] [place] [address], from Last 3 Months Insurance [facility] PLAN MEDICAID - [place] Care Teams Project Inspector Relationship Specialty Start Date End Date Perico Brothers MD [address] [phone] PCP - General Family Medicine 08/30/17
--- OUTSIDE RECORDS SUMMARY | 2025-05-05 19:36 | XMS_ITS | Encounter Summary ---
Author Organization [facility] Address [address] [place] [address] Care Team Providers Care Rate Marker Name Role Phone Perico Brothers MD Primary Care Provider [phone] Encounter Details Date Type Department Care Team (Late st Contact Info) Description 04/01/2025 Lab Requisition [facility] - Main Lab [address] [facility] [place] [address] Dave Sebastian MD [address] [facility] [address] [place] [address] Malignant neoplasm of unspecified renal [...] grade urothelial carcinoma. 04/09/2025 3:23 PM EST [facility] at 1523 EST Specimen A Adequacy Satisfactory for evaluation 04/09/2025 3:23 PM EST [facility]) [facility] Clinical Information Malignant neoplasm of unspecified renal pelvis C65.9 Urine cytology with reflex UroVysion (AUC/SHGUC) 04/09/2025 3:23 PM EST [facility] Gross Description A. Urine, Voided, : Received one ThinPrep slide for cytology. 04/09/2025 3:23 PM EST [facility] Disclaimer Unless otherwise specified, all tissue is 10% NB formalin fixed and paraffin embedded. Technical pathology services provided by [facility] at [address], [place] [address] (CLIA #[id number]/Jose Jewell MD, [employer]) 04/09/2025 3:23 PM EST [facility] Urine Urine specimen from urethra / Unknown 03/30/2025 04/01/2025 10:30 AM EST us Dave Sebastian MD LAB CYTOLOGY ORDERABLES Final R esult [facility] [address] [place] [address], documented in this encounter Visit Diagnoses Diagnosis Malignant neoplasm of unspecified renal pelvis (CMS/HCC V24, CMS/HCC V28) documented in this encounter Care Teams Rate Marker Relationship Specialty Start Date End Date Perico Brothers MD [address] [address] PCP - General Family Medicine 08/30/17 documented as of this encounter
--- OUTSIDE RECORDS SUMMARY | 2025-05-05 19:36 | XMS_ITS | Encounter Summary ---
Author Organization [facility] Address [address] [place] [address] Care Team Providers Care Benefit Specialist Name Role Phone Perico Brothers MD Primary Care Provider [phone] Encounter Details Date Type Department Care Team (Late st Contact Info) Description 06/09/2024 Lab Requisition [facility] - Main Lab [address] [facility] [place] [place] [address] Dave Sebastian MD [address] [place] [address] Malignant neoplasm of unspecified renal [...] AM EST) Final Diagnosis A. Urine, Voided, ([id number]): ATYPICAL UROTHELIAL CELLS. Results of UroVysion fluorescence in situ hybridization (FISH) testing: CEP3: Normal CEP7: Normal CEP17: Normal LSI 9p21: Normal Interpretation: Normal profile Controls stained appropriately. Note: The results are intended as a screening device and should be interpreted in association with other clinical and pathological findings. 06/19/2024 4:28 PM EST [facility] at 1628 EST Clinical Information C65.9 Malignant neoplasm of unspecified renal pelvis Urine Cytology/FISH (now) 06/19/2024 4:28 PM [facility] Gross Description A. Urine, Voided, ([id number]): Received one ThinPrep slide for cytology screen and one ThinPrep slide for UroVysion FISH 06/19/2024 4:28 PM [facility] Disclaimer Unless otherwise specified, all tissue is 10% NB formalin fixed and paraffin embedded. Technical pathology services provided by [facility] [address] [facility] [address] [place] [address] (CLIA #[id number]/Noni Jewell MD, [employer]) 06/19/2024 4:28 PM [facility] Tissue Urine specimen from urethra / Unknown 06/02/2024 06/09/2024 11:59 AM EST us Dave Sebastian MD LAB PATHOLOGY ORDERABLES Final Result [facility] [address] [place] [address], documented in this encounter Visit Diagnoses Diagnosis Malignant neoplasm of unspecified renal pelvis (CMS/HCC V24, CMS/HCC V28) documented in this encounter Care Teams Benefit Specialist Relationship Specialty Start Date End Date Perico Brothers MD [address] [address] PCP - General Family Medicine 08/30/17 documented as of this encounter
== END 2025-05-05 15:42 | disposition home or self-care (01) ==
LOC: HO.HOS 15:19
PROVIDERS: PCP Family Medicine; Visit Provider Physician Assistant
DX: M23.91 Unspecified internal derangement of right knee (principal)
CPT/HCPCS: 20610

== ENCOUNTER → 2025-05-05 15:18 | Outpatient (BNVA) | payer OTHER, MEDICAID, SELFPAY | PROVIDERS: PCP Family Medicine; Visit Provider Physician Assistant | DX: M23.91 Unspecified internal derangement of right knee (principal) | CPT/HCPCS: 20610; J0665; J1100; J2003 ==